=== PATIENT | female | born 1975 | race African-American/Black ===

== ENCOUNTER 2016-07-17 15:02 | Inpatient (IN) ==
[2016-07-17] MEDS ORDERED: SODIUM CHLORIDE 0.9% 500 ML IV STA (15:26)
[2016-07-17] MEDS ORDERED: METOPROLOL TARTRATE 5 MG/5 ML VIAL IV STA (15:26)
--- NOTE | 2016-07-17 15:31 | Emergency Department Note ---
Abbe Edwards Brittany, am scribing for, and in the presence of, Caleb Thompson MD 15:26. Donna Edwards James D, MD, personally performed the services described in this documentation, ascribed by Ana Mcadams in my presence, and it is both accurate and complete 529 . Arrival - Arrival Chief Complaint: Non-Specific Stated Complaint: DIZZY/BLOOD COUNT ED Nursing Triage Note: Pt sent from Dr office in [place] today and told her blood counts was low. Pt c/o dizziness, weakness, and feeling cold. Pt did not take her HTN meds today. Mode of Arrival: Ambulatory Limitations: No Limitations Source: Patient, RN Notes Reviewed - History of Present Illness HPI Narrative: Patient is a 41 y/o female presenting to the ED for further evaluation of low blood counts per office in [place], [place]. Patient has c/o dizziness, weakness, and chills. Patient reports that she did not take her HTN medications today. Went to get pre-op prep for cataract surgery per Dr. Davis irving. She reports she had went upstairs to get eyes measured and was instructed to present to the ED because of labs, labs were not disclosed by staff there. She had a Hgb 7 of and Hct of 23. Patient states she does have a history of heavy menstrual periods. She reports that when she does have a menstrual she goes through about 28 pads each time. She notes that she has talked to physician about this before. She states that heavy bleeding only occurs with period. Periods last about 3-7 days and has to stay in the bed the first day of her period each time. She denies having any chest pain or shortness of breath. She denies having bleeding between periods. Patient reports she felt near syncopal and was having palpitations yesterday. She reports having chills all the time. Had to have blood transfusion back in March of 2016. She reports that [employer] is Dr. Bernabe. Patient is on HCTZ, Lisinopril, Hydralazine, Coreg, and Lasix. PCP is Dr. Cartagena in [place]. She has a past medical history of HTN, Anxiety Disorders, Depression, IDDM, Dyslipidemia, Caesarean Section, and Tubal Ligation. Allergies/Adverse Reactions: Allergies Allergy/AdvReac Type Severity Reaction Status Date / Time No Known Allergies Allergy Verified 03/22/16 03:54 Home Medications: Home Medications Medication Instructions Recorded Confirmed Type Pravastatin [Pravachol] 40 mg PO BEDTIME 12/21/14 03/24/16 History Gabapentin 300 mg PO TID 03/05/16 03/24/16 History Potassium Chloride Cap/Tab [K Dur] 20 meq PO DAILY 03/05/16 03/24/16 History hydrALAZINE TAB [Apresoline Tab] 25 mg PO BID 03/05/16 03/24/16 History Carvedilol [Coreg] 25 mg PO BID #60 tablet 03/09/16 03/24/16 Rx Insulin Glargine [Lantus] 20 unit SUBCUT DAILY #10 ml 03/09/16 03/24/16 Rx Furosemide Tab [Lasix Tab] 160 mg PO BID DIURETIC #120 tablet 03/27/16 Rx HYDROcodone/ACETAMIN 5-325 [[place] 1 tablet PO Q4H PRN #20 tablet 03/27/16 Rx 5-325] Lisinopril [Prinivil] 10 mg PO BID #60 tablet 03/27/16 Rx metOLazone [Zaroxolyn] 5 mg PO DAILY #30 tablet 03/27/16 Rx Review of System - Review of System 12 point system: reviewed and no additional remarkable complaints except as stated - Review of System Constitutional: Present: as per HPI, chills, weakness, other (dizziness) Medical,Surgical,& Family Hx - Medical History Cardio: History of: Hypertension No history of: Aneurysm, Cardiac Dysrhythmia, Cerebrovascular Disease, Congenital Heart Disease, CHF, CAD, NM, Pacemaker, PVD, Valvular Heart Disease, Cardiovascular Problems Psychological: History of: Anxiety Disorders, Depression No history of: ADHD, Behavior Problems, Bipolar Disorder, Previous Suicide Attempt, Psychiatric/Substance Abuse Tx, Schizophrenia, Violent Behavior, Psychiatric Problems Neurology: No history of: Brain Aneurysm, Cerebral Hemorrhage, Cerebrovascular Accident , Cerebral Palsy, Dementia, Migraine, Multiple Sclerosis, Parkinson's Disease, Peripheral Neuropathy, Seizures, TIA, Vertigo, Neurologocal Cancer HEENT: No history of: Ear Problem, Eye Problem, Dental Problems, Glaucoma, Oral Cancer, HEENT Problems Endocrine: History of: Diabetes Mellitus (IDDM), Dyslipidemia No history of: Adrenal Disease, Diabetes Mellitus (NIDDM), Thyroid Disorder, Endocrine Cancer, Endocrine Problems Rheumatology: No history of;: Fibromyalgia, Gout, Myasthenia Gravis, Psoriasis, Rheumatoid Arthritis, Sjogrens, Systemic Lupus Erythematosus, Rheumatological Problems Respiratory: No history of: Asthma, Bronchitis, COPD, Intubation, Obstructive Sleep Apnea , Pulmonary Embolism, Pulmonary Hypertension, Pneumonia, Lung Cancer, Respiratory Problems Renal: No history of: Renal (Kidney) Cancer, Dialysis, Renal Failure, Renal Problems Genitourinary: No history of: Bladder Problem, Kidney Stones, Recurring Urinary Tract Infections, Genitourinary Cancer, Problems Gastrointestinal: No history of: Bowel Obstruction, Clostridium Difficile, Crohn's Disease, Diverticulitis/ Diverticulosis, Esophageal Varices, GERD, Gastrointestinal Bleed , Hemorrhoids, Hematochezia, Hepatitis, Liver Problems, Pancreatitis, Polyps, Ulcerative Colitis, Gastrointestinal Cancer, GI Problems Musculoskeletal: No history of: Amputation, Back/Neck Problems, Degenerative Disk Disease, Herniated Disk, Osteoporosis, Musculoskeletal Cancer, Musculoskeletal Problems Hematology: No history of: Anemia, Blood Transfusion Reaction, Bleeding Problems, Clotting Problems, Sickle Cell Disease, Hematologic Cancer, Blood Disorders Reproductive: No history of: Abnormal Pap Smear, Breast Cancer, Endometriosis, Ectopic , Ovarian Cysts, Complication, Sexually Transmitted Disorders , Reproductive Cancer, Reproductive Problems Other: No history of: Anesthesia Reactions, Anaphylaxis, Cancer, Eczema, HIV, Malignant Hyperthermia, MRSA, Vancomycin-Resistant Enterococci, Skin Problems, Miscellaneous Medical Problems - Surgical History Cardiac Surgeries: Patient Denies: Femoral-Popliteal Bypass Graft, Cardiac Catheterization, Cardiac Surgery, Carotid Endarterectomy, Internal Defibrillator, Vascular Access Devices Thoracic Surgeries: Patient denies;: Kidney (Renal Surgery), Lithotripsy, Nephrectomy, Organ Transplant, Lobectomy Neurologic Surgeries: Patient denies: Brain Aneurysm, Cerebral Hemorrhage, Neurologic Surgery HEENT Surgeries: Patient denies: Carotid Endarterectomy, Eye Surgery, Thyroid Surgery, Tonsilectomy & Adenoidectomy Abdominal Surgeries: Patient denies: Abdominal Surgery, Appendectomy, Cholecystectomy, Colonoscopy , Gastric Bypass Surgery, EGD, Hernia Repair, Splenectomy Reproductive Surgeries: Surgical HX of;: Section, Tubal Ligation Patient denies;: Breast Surgery, Cystoscopy, Dilation and Curettage, Genitourinary Surgery, Gynecologic Surgery, Hysterectomy Orthopedic Surgeries: Patient denies;: Implanted Devices, Orthopedic Surgery, Spinal Surgery, Total Hip Replacement, Total Knee Replacement - Family History Family History: Reports;: Family Diabetes (father mother sister), Family Heart Disease (father), Family Hypertension (father), Family Stroke (mother) Denies;: Family Anesthesia Reaction, Family Cancer (neice kidney ca), Family Psychiatric Problems - Social History Smoking Status: Never smoker Exam Vital Signs: Vital Signs Temperature 98.2 F 07/17/16 15:03 Pulse Rate 85 07/17/16 15:03 Respiratory Rate 18 07/17/16 15:03 Blood Pressure 205/123 07/17/16 15:03 O2 Sat by Pulse Oximetry 97 07/17/16 15:03 GENERAL: This is a well-nourished well-developed black female in no apparent distress. VITAL SIGNS: Reviewed HEENT: Head is atraumatic and normocephalic. Pupils are equal round react to light. Extraocular movements are intact. Pale conjunctiva bilaterally. Oropharynx is benign with moist mucous membranes. NECK: Neck is soft and supple without tenderness. There are no masses. There is no lymphadenopathy. LUNGS: Lungs are clear to auscultation. Chest rises symmetrically. There is no chest wall tenderness. CV: Heart is regular rate and rhythm without murmurs rubs or gallops. ABDOMEN: Abdomen is soft, nontender to palpation. There are no abdominal abnormal masses palpated. There is no organomegaly. Bowel sounds are present and active. SKIN: Skin is warm and dry. No rash. EXTREMITIES: Patient has full range of motion without tenderness. There is 1-2 + pitting pedal edema. NEUROLOGIC: Awake alert and oriented 4. Cranial nerves II through XII are grossly intact. Motor is 5 over 5 in all extremities bilaterally. Course - Consultations Consultation #1: Discussed with hospitalist. Patient will be admitted to their service. Time: 15:45 Disposition Clinical Impression: Menorrhagia, Anemia Case discussed with: patient Disposition: Still a Patient Condition: Stable
[2016-07-17 16:03] LABS: Basophils % 0.4 % (0.0-0.8); Eosinophils # 0.2 10*3/uL (0.0-0.87); Eosinophils % 3.1 % (0.00-10.9); Hemoglobin 8.4 GM/DL (12.0-16.0); Immature Granulocytes % 0.7 %; Immature Granulocytes Absolute 0.05 #; Lymphocytes # 2.1 10*3/uL (1.4-4.0); Lymphocytes % 30.9 % (21.3-54.2); Mean Corpuscular HGB Conc 33.6 GM/DL (32-36); Mean Corpuscular Hemoglobin 30 PG (27-34); Mean Corpuscular Volume 90.3 FL (87-102); Mean Platelet Volume 10.4 FL (9.6-12.0); Monocytes # 0.3 10*3/uL (0.11-0.8); Monocytes % 4.6 % (1.7-12.7); Neutrophils % 60.3 % (38.7-73.9); Platelet Count 272 T/CUMM (130-400); Red Blood Count 2.77 MC/CUMM (3.8-5.5); Red Cell Distribution Width 12.4 % (9.3-17.3); White Blood Count 6.7 T/CUMM (4-12)
--- NOTE | 2016-07-17 16:10 | XRay Report ---
XR chest 2V Indication: Anemia. Chest 2 views: Comparison 03/21/2016. Heart size and mediastinal contour are normal. Lungs are hypoinflated but generally clear, except for minimal bibasilar atelectasis. Pleural spaces are clear. Bones are intact. Impression: Mild pulmonary hypoinflation with atelectasis. PROCEDURE INTERPRETED AT [facility] DEPARTMENT OF RADIOLOGY Final Report Signed by: Haresh Whipple M.D.
[2016-07-17] MEDS ORDERED: METOPROLOL TARTRATE 5 MG/5 ML VIAL IV ONE (16:16)
[2016-07-17 16:20] LABS: % Iron Saturation 22.3 % (18-50); Calcium 6.7 MG/DL (8.5-10.1); Potassium 3.7 MMOL/L (3.5-5.1)
[2016-07-17] MEDS ORDERED: hydrALAZINE 20 MG/1 ML VIAL IV STA (17:54)
[2016-07-17] MEDS ORDERED: hydrALAZINE 20 MG/1 ML VIAL ONE (18:17)
[2016-07-17] MEDS ORDERED: DEXTROSE 50% 25 GM/50 ML VIAL IV PRN ×2 (19:15→19:34)
[2016-07-17] MEDS ORDERED: GLUCAGON 1 MG VIAL IM PRN ×2 (19:15→19:34)
--- NOTE | 2016-07-17 19:33 | Hospitalist History & Physical ---
<Billie Correa - Last Filed: 07/17/16 19:36> Assessment and Plan (1) Anemia Status: Acute Assessment and plan: Will get anemia profile. Monitor patient labs. Current Visit: Yes (2) Menorrhagia Status: Acute Assessment and plan: Consult OBGYN. Monitor labs Current Visit: Yes History of Present Illness Chief complaint: anemia History of present illness: Ms. Kerns is a 41 y/o female presenting to the ED for further evaluation of low blood counts per physicans office in [place], [place]. Pt went in to get pre op for cataract surgery and low blood counts were noted. Patient has c/o dizziness, weakness, and chills. Pt stated she was very dizzy yesterday. Patient reports that she did not take her HTN medications today and is hyptertensive. She has a past medical history of HTN, Anxiety Disorders, Depression, IDDM, Dyslipidemia, Caesarean Section, and Tubal Ligation. Patient states she does also have a history of heavy menstrual periods and that she has reported this to doctors in the past. She states that heavy bleeding only occurs with period. She has had to have 2 transfusions in the past (August and Mar 2016) She denies having any chest pain or shortness of breath. Had to have blood transfusion back in March of 2016. Pt. will be admitted for observation. OBGYN consulted to evaluate. Will continue to monitor patient for changes. Home Medications Medication Instructions Recorded Confirmed Type Pravastatin [Pravachol] 40 mg PO BEDTIME 12/21/14 07/17/16 History Gabapentin 300 mg PO TID 03/05/16 07/17/16 History hydrALAZINE TAB [Apresoline Tab] 25 mg PO BID 03/05/16 07/17/16 History Carvedilol [Coreg] 25 mg PO BID #60 tablet 03/09/16 07/17/16 Rx Furosemide Tab [Lasix Tab] 160 mg PO BID DIURETIC #120 tablet 03/27/16 07/17/16 Rx Insulin Glargine [Lantus] 30 unit SUBCUT QAM 07/17/16 07/17/16 History Lisinopril/Hydrochlorothiazide 1 each PO DAILY 07/17/16 07/17/16 History [Lisinopril-Hctz 20-25 mg Tab] Allergies Allergy/AdvReac Type Severity Reaction Status Date / Time No Known Allergies Allergy Verified 03/22/16 03:54 Medical,Surgical,& Family Hx - Medical History Cardio: History of: Hypertension No history of: Aneurysm, Cardiac Dysrhythmia, Cerebrovascular Disease, Congenital Heart Disease, CHF, CAD, [place], Pacemaker, PVD, Valvular Heart Disease, Cardiovascular Problems Psychological: History of: Anxiety Disorders, Depression No history of: ADHD, Behavior Problems, Bipolar Disorder, Previous Suicide Attempt, Psychiatric/Substance Abuse Tx, Schizophrenia, Violent Behavior, Psychiatric Problems Neurology: No history of: Brain Aneurysm, Cerebral Hemorrhage, Cerebrovascular Accident , Cerebral Palsy, Dementia, Migraine, Multiple Sclerosis, Parkinson's Disease, Peripheral Neuropathy, Seizures, TIA, Vertigo, Neurologocal Cancer HEENT: No history of: Ear Problem, Eye Problem, Dental Problems, Glaucoma, Oral Cancer, HEENT Problems Endocrine: History of: Diabetes Mellitus (IDDM), Dyslipidemia No history of: Adrenal Disease, Diabetes Mellitus (NIDDM), Thyroid Disorder, Endocrine Cancer, Endocrine Problems Rheumatology: No history of;: Fibromyalgia, Gout, Myasthenia Gravis, Psoriasis, Rheumatoid Arthritis, Sjogrens, Systemic Lupus Erythematosus, Rheumatological Problems Respiratory: No history of: Asthma, Bronchitis, COPD, Intubation, Obstructive Sleep Apnea , Pulmonary Embolism, Pulmonary Hypertension, Pneumonia, Lung Cancer, Respiratory Problems Renal: No history of: Renal (Kidney) Cancer, Dialysis, Renal Failure, Renal Problems Genitourinary: No history of: Bladder Problem, Kidney Stones, Recurring Urinary Tract Infections, Genitourinary Cancer, Problems Gastrointestinal: No history of: Bowel Obstruction, Clostridium Difficile, Crohn's Disease, Diverticulitis/ Diverticulosis, Esophageal Varices, GERD, Gastrointestinal Bleed , Hemorrhoids, Hematochezia, Hepatitis, Liver Problems, Pancreatitis, Polyps, Ulcerative Colitis, Gastrointestinal Cancer, GI Problems Musculoskeletal: No history of: Amputation, Back/Neck Problems, Degenerative Disk Disease, Herniated Disk, Osteoporosis, Musculoskeletal Cancer, Musculoskeletal Problems Hematology: No history of: Anemia, Blood Transfusion Reaction, Bleeding Problems, Clotting Problems, Sickle Cell Disease, Hematologic Cancer, Blood Disorders Reproductive: No history of: Abnormal Pap Smear, Breast Cancer, Endometriosis, Ectopic , Ovarian Cysts, Complication, Sexually Transmitted Disorders , Reproductive Cancer, Reproductive Problems Other: No history of: Anesthesia Reactions, Anaphylaxis, Cancer, Eczema, HIV, Malignant Hyperthermia, MRSA, Vancomycin-Resistant Enterococci, Skin Problems, Miscellaneous Medical Problems - Surgical History Cardiac Surgeries: Patient Denies: Femoral-Popliteal Bypass Graft, Cardiac Catheterization, Cardiac Surgery, Carotid Endarterectomy, Internal Defibrillator, Vascular Access Devices Thoracic Surgeries: Patient denies;: Kidney (Renal Surgery), Lithotripsy, Nephrectomy, Organ Transplant, Lobectomy Neurologic Surgeries: Patient denies: Brain Aneurysm, Cerebral Hemorrhage, Neurologic Surgery HEENT Surgeries: Patient denies: Carotid Endarterectomy, Eye Surgery, Thyroid Surgery, Tonsilectomy & Adenoidectomy Abdominal Surgeries: Patient denies: Abdominal Surgery, Appendectomy, Cholecystectomy, Colonoscopy , Gastric Bypass Surgery, EGD, Hernia Repair, Splenectomy Reproductive Surgeries: Surgical HX of;: Section, Tubal Ligation Patient denies;: Breast Surgery, Cystoscopy, Dilation and Curettage, Genitourinary Surgery, Gynecologic Surgery, Hysterectomy Orthopedic Surgeries: Patient denies;: Implanted Devices, Orthopedic Surgery, Spinal Surgery, Total Hip Replacement, Total Knee Replacement - Family History Family History: Reports;: Family Diabetes (father mother sister), Family Heart Disease (father), Family Hypertension (father), Family Stroke (mother) Denies;: Family Anesthesia Reaction, Family Cancer (neice kidney ca), Family Psychiatric Problems - Social History Smoking Status: Never smoker - Constitutional Constitutional: Present: fatigue - Cardiovascular Cardiovascular: Present: edema - Respiratory Respiratory: Absent: cough, dyspnea - Genitourinary Genitourinary: Present: other (heavy menstrual cycles) Exam - Constitutional Vitals: Period Temp Pulse Resp BP Sys/Encarnacion Pulse Ox Last 24 Hr 75-79 16-19 163-218/86-105 100-100 General appearance: no acute distress, over weight - Head Head exam: Present: normal inspection, normocephalic - Eye Eye exam: Present: EOMI Pupils: Present: JOLYNN - Respiratory Respiratory exam: Present: clear to auscultation bilaterally - GI/Abdominal GI/Abdominal exam: Present: normal bowel sounds, soft - Extremities Exam Extremities exam: Present: normal inspection, normal capillary refill, full ROM , edema (bilateral lower extremities) - Neurological Exam Neurological exam: Present: oriented X3 - Psychiatric Psychiatric exam: Present: normal affect, normal mood - Skin Skin exam: Present: normal color, warm, dry Results - Labs CBC & BMP: 07/17/16 15:53 07/17/16 15:53 Lab Results: I have reviewed the past 24 hour labs <Dover,Haresh - Last Filed: 07/17/16 20:15> History of Present Illness History of present illness: Ms. Kerns is a 41 year old female Exam - Constitutional Vitals: Period Temp Pulse Resp BP Sys/Encarnacion Pulse Ox Last 24 Hr 75-79 16-19 163-218/86-105 100-100 Results - Labs CBC & BMP: 07/17/16 15:53 07/17/16 15:53
[2016-07-17] MEDS ORDERED: ACETAMINOPHEN 325 MG TABLET PO PRN (19:34)
[2016-07-17] MEDS ORDERED: BISACODYL 5 MG TABLET PO PRN (19:34)
[2016-07-17] MEDS ORDERED: ONDANSETRON 4 MG/2 ML VIAL IV PRN (19:34)
[2016-07-17] MEDS ORDERED: DOCUSATE SODIUM 100 MG CAPSULE PO PRN (19:34)
[2016-07-17 20:22] LABS: Basophils % 0.3 % (0.0-0.8); Eosinophils # 0.3 10*3/uL (0.0-0.87); Eosinophils % 3.6 % (0.00-10.9); Hematocrit 24.8 VOL% (35.7-47.0); Immature Granulocytes % 0.7 %; Immature Granulocytes Absolute 0.05 #; Lymphocytes # 2.7 10*3/uL (1.4-4.0); Lymphocytes % 38.1 % (21.3-54.2); Mean Corpuscular HGB Conc 32.3 GM/DL (32-36); Mean Corpuscular Hemoglobin 30 PG (27-34); Mean Corpuscular Volume 91.5 FL (87-102); Mean Platelet Volume 10.4 FL (9.6-12.0); Monocytes # 0.3 10*3/uL (0.11-0.8); Monocytes % 4.3 % (1.7-12.7); Neutrophils # 3.7 10*3/uL (1.4-7.4); Platelet Count 269 T/CUMM (130-400); Red Blood Count 2.71 MC/CUMM (3.8-5.5); Red Cell Distribution Width 12.4 % (9.3-17.3)
[2016-07-17] MEDS: CARVEDILOL 25 MG TABLET PO SCH (20:50)
[2016-07-17] MEDS: PRAVASTATIN 40 MG TABLET PO SCH (20:50)
[2016-07-17] MEDS: hydrALAZINE 25 MG TABLET PO SCH (20:50)
[2016-07-17] MEDS: INSULIN LISPRO 100 UNIT/ML SUBCUT SCH (20:51)
[2016-07-17 20:56] LABS: Folate 6.5 NG/ML (5.4-24.0); Vitamin B12 622 PG/ML (211-911)
[2016-07-17] MEDS ORDERED: INFLUENZA VIRUS VACCINE 0.5 ML SYRINGE IM ONE (21:08)
[2016-07-17 22:18] LABS: Sedimentation Rate-Westergren 134 MM/HR (0-20)
[2016-07-18] MEDS: ACETAMINOPHEN 325 MG TABLET PO PRN (00:16)
[2016-07-18 02:39] LABS: Basophils % 0.3 % (0.0-0.8); Eosinophils # 0.2 10*3/uL (0.0-0.87); Eosinophils % 3.1 % (0.00-10.9); Hematocrit 21.1 VOL% (35.7-47.0); Immature Granulocytes % 0.9 %; Immature Granulocytes Absolute 0.06 #; Lymphocytes # 2.2 10*3/uL (1.4-4.0); Lymphocytes % 34.1 % (21.3-54.2); Mean Corpuscular HGB Conc 33.2 GM/DL (32-36); Mean Corpuscular Hemoglobin 30 PG (27-34); Mean Corpuscular Volume 90.2 FL (87-102); Monocytes # 0.3 10*3/uL (0.11-0.8); Monocytes % 4.6 % (1.7-12.7); Neutrophils # 3.7 10*3/uL (1.4-7.4); Platelet Count 220 T/CUMM (130-400); Red Blood Count 2.34 MC/CUMM (3.8-5.5); Red Cell Distribution Width 12.4 % (9.3-17.3); White Blood Count 6.5 T/CUMM (4-12)
[2016-07-18 03:10] LABS: Calcium 6.5 MG/DL (8.5-10.1); Osmolality,Calculated 307.4 MOS/KG (273-304); Potassium 3.3 MMOL/L (3.5-5.1); Risk Ratio 4.74; Thyroid Stimulating Hormone 1.85 uIU/ml (0.358-3.74)
[2016-07-18 03:14] LABS: Apearance,Urine Slightly Hazy (Clear); Bacteria,Urine Occasional /HPF (Few); Bilirubin,Urine Negative (Negative); Blood, Urine Negative (Negative); Glucose,Urine (UA) >=500 mg/dL (Negative); Hyaline Casts,Urine 4 /LPF (0-3); Ketones,Urine Negative (Negative); Mucus,Urine Occasional /LPF (Occasional); Nitrite,Urine Negative (Negative); Protein,Urine >=500 MG/DL; RBC,Urine 2 /HPF (0-4); Squamous Epithelial Cell,Urine Occasional /HPF (0-10); Urine Color Yellow (Yellow); Urine Specific Gravity 1.012 (1.001-1.035); Urine Urobilinogen < 2.0 EU/DL (0.2-1.0); WBC,Urine 12 /HPF (0-6)
--- NOTE | 2016-07-18 07:58 | Physician Query Form ---
CLICK EDIT DOCUMENT TO SELECT QUERY ANSWER --> OK --> SIGN Arline Vallejo RN, CCDS Certified Clinical Equip Tech W) [phone] (f) [phone] [email or web address] PROVIDERS: Make your selection(s) from the choices in EACH section by typing an "x" and enter comments in the comment section. Please use your independent medical judgment in providing your response. This request does not imply that any particular answer is desired or expected. CLINICAL INDICATORS: (Providers should not edit this section) The medical record indicates that the patient was admitted with Menorrhagia, Creatinine of 3.70# on the 15th that has dropped to 3.50# on the 16th and GFR of 18 on the 15th that has increased to 20 on the 16th. Clarify which of the following most accurately represents the patient's renal status: ( ) Acute kidney injury (non-traumatic) ( ) Acute renal failure ( ) Acute renal failure with underlying Chronic Kidney Disease (CKD) - please provide stage below ( ) Acute renal failure with pathological renal lesion ( ) Acute renal failure with necrosis ( ) tubular ( ) medullary ( ) cortical (x ) CKD - please provide stage below ( ) End Stage Renal Disease ( ) Acute interstitial nephritis ( ) Hepatorenal syndrome ( ) Other, please specify: ( ) Clinically unable to determine Chronic Kidney Disease Stages Source: National Kidney Disease Foundation ( ) Stage I (eGFR > or = 90) ( ) Stage II (eGFR 60 - 89) (x ) Stage III (eGFR 30 - 59) ( ) Stage IV (eGFR 15 - 29) ( ) Stage V (eGFR < 15 or dialysis) COMMENTS: Use of terms such as suspected, likely, or probable (associated with a specific diagnosis that is being evaluated, monitored, or treated as if it exists) are acceptable and can be restated in the discharge summary if not ruled out. MTDD
--- NOTE | 2016-07-18 07:59 | Physician Query Form ---
CLICK EDIT DOCUMENT TO SELECT QUERY ANSWER --> OK --> SIGN Arline Vallejo RN, CCDS Certified Clinical Hogshead Press Operator W) [phone] (f) [phone] [email or web address] PROVIDERS: Make your selection(s) from the choices in EACH section by typing an "x" and enter comments in the comment section. Please use your independent medical judgment in providing your response. This request does not imply that any particular answer is desired or expected. CLINICAL INDICATORS: (Providers should not edit this section) The medical record indicates that the patient was admitted with Menorrhagia, PER Blood Pressure in the ER 205/123 and the patient was given Apresoline IV in the ER Note: Hypertensive crises can present as hypertensive urgency or hypertensive emergency. Clarify which, if any of the following, is a more accurate diagnosis reflecting the type and acuity of the documented hypertension: TYPE: (x ) Hypertensive Urgency ( ) Hypertensive Emergency ( ) Uncontrolled chronic hypertension at baseline ( ) Other, please specify: ( ) Clinically unable to determine Criteria Source - Up to Date (This topic last updated: Jul 05, 2015) HYPERTENSIVE URGENCY: Severe hypertension (usually a diastolic blood pressure above 120 mmHg) in asymptomatic patients is referred to as hypertensive urgency. There is no proven benefit from rapid reduction in blood pressure in asymptomatic patients who have no evidence of acute end-organ damage and are at little short-term risk. HYPERTENSIVE EMERGENCY: Severe hypertension (usually a diastolic blood pressure above 120 mmHg) with evidence of acute end-organ damage is defined as a hypertensive emergency. A hypertensive emergency can be life threatening and requires immediate treatment, usually with parenteral medications in a monitored setting. COMMENTS: Use of terms such as suspected, likely, or probable (associated with a specific diagnosis that is being evaluated, monitored, or treated as if it exists) are acceptable and can be restated in the discharge summary if not ruled out. MTDD
--- NOTE | 2016-07-18 08:52 | OB/GYN Consult Note ---
History of Present Illness Chief complaint: Anemia secondary to blood loss History of present illness: Ms. Kerns is a 41 year old female Who is scheduled for cataract surgery in [place] next but on her preop was found to be anemic she was consequently admitted here at [facility] for anemia. Her hemoglobin currently is 7. She states that she has not had a period this month but when she does have periods they are usually very heavy. Recommend giving her 3 units packed red blood cells which I have ordered and will give her a shot of Depo-Provera to hold off her next cycle. Once she is completed her surgery next week in [place] for her cataract will follow up the following week in my office for evaluation and definitive treatment of her menorrhagia Home Medications Medication Instructions Recorded Confirmed Type Pravastatin [Pravachol] 40 mg PO BEDTIME 12/21/14 07/17/16 History Gabapentin 300 mg PO TID 03/05/16 07/17/16 History hydrALAZINE TAB [Apresoline Tab] 25 mg PO BID 03/05/16 07/17/16 History Carvedilol [Coreg] 25 mg PO BID #60 tablet 03/09/16 07/17/16 Rx Furosemide Tab [Lasix Tab] 160 mg PO BID DIURETIC #120 tablet 03/27/16 07/17/16 Rx Insulin Glargine [Lantus] 30 unit SUBCUT QAM 07/17/16 07/17/16 History Lisinopril/Hydrochlorothiazide 1 each PO DAILY 07/17/16 07/17/16 History [Lisinopril-Hctz 20-25 mg Tab] Allergies Allergy/AdvReac Type Severity Reaction Status Date / Time No Known Allergies Allergy Verified 03/22/16 03:54 Medical,Surgical,& Family Hx - Medical History Cardio: History of: Hypertension No history of: Aneurysm, Cardiac Dysrhythmia, Cerebrovascular Disease, Congenital Heart Disease, CHF, CAD, [place], Pacemaker, PVD, Valvular Heart Disease, Cardiovascular Problems Psychological: History of: Anxiety Disorders, Depression No history of: ADHD, Behavior Problems, Bipolar Disorder, Previous Suicide Attempt, Psychiatric/Substance Abuse Tx, Schizophrenia, Violent Behavior, Psychiatric Problems Neurology: No history of: Brain Aneurysm, Cerebral Hemorrhage, Cerebrovascular Accident , Cerebral Palsy, Dementia, Migraine, Multiple Sclerosis, Parkinson's Disease, Peripheral Neuropathy, Seizures, TIA, Vertigo, Neurologocal Cancer HEENT: No history of: Ear Problem, Eye Problem, Dental Problems, Glaucoma, Oral Cancer, HEENT Problems Endocrine: History of: Diabetes Mellitus (IDDM), Dyslipidemia No history of: Adrenal Disease, Diabetes Mellitus (NIDDM), Thyroid Disorder, Endocrine Cancer, Endocrine Problems Rheumatology: No history of;: Fibromyalgia, Gout, Myasthenia Gravis, Psoriasis, Rheumatoid Arthritis, Sjogrens, Systemic Lupus Erythematosus, Rheumatological Problems Respiratory: No history of: Asthma, Bronchitis, COPD, Intubation, Obstructive Sleep Apnea , Pulmonary Embolism, Pulmonary Hypertension, Pneumonia, Lung Cancer, Respiratory Problems Renal: No history of: Renal (Kidney) Cancer, Dialysis, Renal Failure, Renal Problems Genitourinary: No history of: Bladder Problem, Kidney Stones, Recurring Urinary Tract Infections, Genitourinary Cancer, Problems Gastrointestinal: No history of: Bowel Obstruction, Clostridium Difficile, Crohn's Disease, Diverticulitis/ Diverticulosis, Esophageal Varices, GERD, Gastrointestinal Bleed , Hemorrhoids, Hematochezia, Hepatitis, Liver Problems, Pancreatitis, Polyps, Ulcerative Colitis, Gastrointestinal Cancer, GI Problems Musculoskeletal: No history of: Amputation, Back/Neck Problems, Degenerative Disk Disease, Herniated Disk, Osteoporosis, Musculoskeletal Cancer, Musculoskeletal Problems Hematology: No history of: Anemia, Blood Transfusion Reaction, Bleeding Problems, Clotting Problems, Sickle Cell Disease, Hematologic Cancer, Blood Disorders Reproductive: No history of: Abnormal Pap Smear, Breast Cancer, Endometriosis, Ectopic , Ovarian Cysts, Complication, Sexually Transmitted Disorders , Reproductive Cancer, Reproductive Problems Other: No history of: Anesthesia Reactions, Anaphylaxis, Cancer, Eczema, HIV, Malignant Hyperthermia, MRSA, Vancomycin-Resistant Enterococci, Skin Problems, Miscellaneous Medical Problems - Surgical History Cardiac Surgeries: Patient Denies: Femoral-Popliteal Bypass Graft, Cardiac Catheterization, Cardiac Surgery, Carotid Endarterectomy, Internal Defibrillator, Vascular Access Devices Thoracic Surgeries: Patient denies;: Kidney (Renal Surgery), Lithotripsy, Nephrectomy, Organ Transplant, Lobectomy Neurologic Surgeries: Patient denies: Brain Aneurysm, Cerebral Hemorrhage, Neurologic Surgery HEENT Surgeries: Patient denies: Carotid Endarterectomy, Eye Surgery, Thyroid Surgery, Tonsilectomy & Adenoidectomy Abdominal Surgeries: Patient denies: Abdominal Surgery, Appendectomy, Cholecystectomy, Colonoscopy , Gastric Bypass Surgery, EGD, Hernia Repair, Splenectomy Reproductive Surgeries: Surgical HX of;: Section, Tubal Ligation Patient denies;: Breast Surgery, Cystoscopy, Dilation and Curettage, Genitourinary Surgery, Gynecologic Surgery, Hysterectomy Orthopedic Surgeries: Patient denies;: Implanted Devices, Orthopedic Surgery, Spinal Surgery, Total Hip Replacement, Total Knee Replacement - Family History Family History: Reports;: Family Diabetes (father mother sister), Family Heart Disease (father), Family Hypertension (father), Family Stroke (mother), Additional Family History (sister,nephew dialysis,neice) Denies;: Family Anesthesia Reaction, Family Cancer (neice kidney ca), Family Hematology, Family Psychiatric Problems - Social History Smoking Status: Never smoker Frequency of Alcohol Use: None Type of Drug Use: None 12 point system: reviewed and no additional remarkable complaints except as stated - Genitourinary Genitourinary: Present: abnormal vaginal bleeding Exam [employer] - Constitutional Vitals: Vital Signs Temp Pulse Pulse Resp BP Pulse Ox Pulse Ox 07/18/16 07:57 98.5 F 76 17 179/86 98 07/18/16 04:00 99.2 F 80 18 155/76 99 07/18/16 01:16 99 F 07/18/16 00:16 101.1 F H 07/18/16 00:00 101.1 F H 88 18 136/67 97 07/17/16 20:00 83 18 07/17/16 19:35 99.4 F 83 18 163/93 100 07/17/16 19:06 75 16 163/86 100 07/17/16 18:30 79 19 190/101 100 07/17/16 18:00 76 19 218/105 100 General appearance: over weight - Head Head exam: Present: normal inspection, normocephalic, atraumatic - Respiratory Respiratory exam: Present: clear to auscultation bilaterally - Breast Breasts: as per HPI Menstruation: as per HPI - Cardiovascular Cardiovascular exam: Present: regular rate and rhythm - GI/Abdominal GI/Abdominal exam: Present: normal bowel sounds - Extremities Exam Extremities exam: Present: normal inspection - Neurological Exam Neurological exam: Present: alert, oriented X3 - Psychiatric Psychiatric exam: Present: normal affect, normal mood - Skin Skin exam: Present: normal color Results - Labs CBC & BMP: 07/18/16 02:11 07/18/16 02:11
[2016-07-18] MEDS ORDERED: SODIUM CHLORIDE 0.9% 250 ML IV PRN (08:53)
[2016-07-18] MEDS: INSULIN LISPRO 100 UNIT/ML SUBCUT SCH ×4 (08:54→22:02)
[2016-07-18] MEDS: FUROSEMIDE 80 MG TABLET PO SCH ×2 (08:55→17:20)
[2016-07-18] MEDS: PANTOPRAZOLE 40 MG TABLET PO SCH (08:55)
[2016-07-18] MEDS: hydrALAZINE 25 MG TABLET PO SCH ×2 (08:55→22:00)
[2016-07-18] MEDS: LISINOPRIL/HCTZ 20-25 MG TABLET PO SCH (08:55)
[2016-07-18] MEDS: CARVEDILOL 25 MG TABLET PO SCH ×2 (08:55→22:01)
[2016-07-18 09:35] LABS: Basophils % 0.1 % (0.0-0.8); Eosinophils # 0.2 10*3/uL (0.0-0.87); Eosinophils % 3.1 % (0.00-10.9); Hematocrit 21.9 VOL% (35.7-47.0); Hemoglobin 7.1 GM/DL (12.0-16.0); Immature Granulocytes % 0.7 %; Immature Granulocytes Absolute 0.05 #; Lymphocytes # 2.3 10*3/uL (1.4-4.0); Lymphocytes % 33.7 % (21.3-54.2); Mean Corpuscular HGB Conc 32.4 GM/DL (32-36); Mean Corpuscular Hemoglobin 30 PG (27-34); Mean Corpuscular Volume 91.6 FL (87-102); Mean Platelet Volume 10.3 FL (9.6-12.0); Monocytes # 0.3 10*3/uL (0.11-0.8); Monocytes % 3.9 % (1.7-12.7); Neutrophils # 3.9 10*3/uL (1.4-7.4); Neutrophils % 58.5 % (38.7-73.9); Platelet Count 250 T/CUMM (130-400); Red Blood Count 2.39 MC/CUMM (3.8-5.5); Red Cell Distribution Width 12.5 % (9.3-17.3); White Blood Count 6.7 T/CUMM (4-12)
[2016-07-18] MEDS: GABAPENTIN 300 MG CAPSULE PO SCH ×2 (13:55→22:00)
--- NOTE | 2016-07-18 13:58 | Hospitalist Progress Note ---
Assessment and Plan - Time spent with patient Time spent with patient: Greater than 30 minutes (1) Anemia Status: Acute Assessment and plan: Continue blood products. Current Visit: Yes (2) Menorrhagia Status: Acute Assessment and plan: Evaluated by OBGYN. Current Visit: Yes Hospitalist: Subjective Interval history: No complaints currently. Exam - Constitutional Vitals: Period Temp Pulse Resp BP Sys/Encarnacion Pulse Ox Last 24 Hr 97.7 F-101.1 F 68-88 16-20 136-218/67-105 97-100 General appearance: no acute distress - Head Head exam: Present: normocephalic, atraumatic - Eye Eye exam: Present: EOMI Pupils: Present: JOLYNN - ENT ENT exam: Present: normal exam - Neck Neck exam: Present: normal inspection - Respiratory Respiratory exam: Present: clear to auscultation bilaterally. Absent: rhonchi, wheezes - Cardiovascular Cardiovascular exam: Present: regular rate and rhythm. Absent: gallop, rubs, systolic murmur - GI/Abdominal GI/Abdominal exam: Present: normal bowel sounds, soft. Absent: distended, firm , guarding, tenderness, rebound - Extremities Exam Extremities exam: Present: normal inspection. Absent: calf tenderness, edema Results - Labs CBC & BMP: 07/18/16 09:20 07/18/16 02:11 Lab Results: I have reviewed the past 24 hour labs Specialty Discharge - Follow Up or Referrals Follow up with: Aaron Davila MD [Physician] - 2 Weeks
[2016-07-18] MEDS ORDERED: hydrALAZINE 20 MG/1 ML VIAL IV PRN (14:53)
[2016-07-18] MEDS: PRAVASTATIN 40 MG TABLET PO SCH (21:59)
[2016-07-18 22:28] LABS: Hematocrit 34.2 VOL% (35.7-47.0)
[2016-07-18 22:29] LABS: Hemoglobin 11.4 GM/DL (12.0-16.0)
[2016-07-19] MEDS: INSULIN LISPRO 100 UNIT/ML SUBCUT SCH ×4 (07:53→21:05)
[2016-07-19] MEDS: FUROSEMIDE 80 MG TABLET PO SCH ×2 (07:56→17:04)
[2016-07-19] MEDS: CARVEDILOL 25 MG TABLET PO SCH ×2 (08:00→21:06)
[2016-07-19] MEDS: GABAPENTIN 300 MG CAPSULE PO SCH ×3 (08:00→21:06)
[2016-07-19] MEDS: PANTOPRAZOLE 40 MG TABLET PO SCH (08:00)
[2016-07-19] MEDS: hydrALAZINE 25 MG TABLET PO SCH ×2 (08:00→21:06)
[2016-07-19] MEDS: LISINOPRIL/HCTZ 20-25 MG TABLET PO SCH (08:00)
--- NOTE | 2016-07-19 16:09 | Hospitalist Progress Note ---
Assessment and Plan - Time spent with patient Time spent with patient: Greater than 30 minutes (1) Anemia Status: Acute Assessment and plan: Continue blood products. Current Visit: Yes (2) Menorrhagia Status: Acute Assessment and plan: Evaluated by OBGYN. Current Visit: Yes (3) UTI (urinary tract infection) Status: Acute Assessment and plan: rocephin. Current Visit: No Qualifiers: Urinary tract infection type: acute cystitis Hematuria presence: without hematuria Qualified Code(s): N30.00 - Acute cystitis without hematuria Hospitalist: Subjective Interval history: No complaints, no overnight events. Exam - Constitutional Vitals: Period Temp Pulse Resp BP Sys/Encarnacion Pulse Ox Last 24 Hr 97.8 F-99.2 F 72-96 16-20 124-203/57-95 95-100 General appearance: no acute distress - Head Head exam: Present: normocephalic, atraumatic - Eye Eye exam: Present: EOMI Pupils: Present: JOLYNN - ENT ENT exam: Present: normal exam - Neck Neck exam: Present: normal inspection - Respiratory Respiratory exam: Present: clear to auscultation bilaterally. Absent: rhonchi, wheezes - Cardiovascular Cardiovascular exam: Present: regular rate and rhythm. Absent: gallop, rubs, systolic murmur - GI/Abdominal GI/Abdominal exam: Present: normal bowel sounds, soft. Absent: distended, firm , guarding, tenderness, rebound - Extremities Exam Extremities exam: Present: normal inspection. Absent: calf tenderness, edema Results - Labs CBC & BMP: 07/18/16 22:07 07/18/16 02:11 Lab Results: I have reviewed the past 24 hour labs Specialty Discharge - Follow Up or Referrals Follow up with: Aaron Davila MD [Physician] - 08/01/16 10:00 am
[2016-07-19 16:46] LABS: Basophils % 0.4 % (0.0-0.8); Eosinophils # 0.2 10*3/uL (0.0-0.87); Eosinophils % 2.7 % (0.00-10.9); Hematocrit 34.5 VOL% (35.7-47.0); Hemoglobin 11.3 GM/DL (12.0-16.0); Immature Granulocytes % 0.5 %; Immature Granulocytes Absolute 0.04 #; Lymphocytes # 2.1 10*3/uL (1.4-4.0); Lymphocytes % 25.3 % (21.3-54.2); Mean Corpuscular HGB Conc 32.8 GM/DL (32-36); Mean Corpuscular Hemoglobin 30 PG (27-34); Mean Corpuscular Volume 91.5 FL (87-102); Mean Platelet Volume 10.1 FL (9.6-12.0); Monocytes # 0.3 10*3/uL (0.11-0.8); Monocytes % 4.2 % (1.7-12.7); Neutrophils # 5.5 10*3/uL (1.4-7.4); Neutrophils % 66.9 % (38.7-73.9); Platelet Count 260 T/CUMM (130-400); Red Blood Count 3.77 MC/CUMM (3.8-5.5); Red Cell Distribution Width 12.9 % (9.3-17.3); White Blood Count 8.2 T/CUMM (4-12)
[2016-07-19 17:03] LABS: Calcium 6.9 MG/DL (8.5-10.1); Potassium 3.8 MMOL/L (3.5-5.1)
[2016-07-19] MEDS: cefTRIAXone 1,000 MG in SODIUM CHLORIDE 0.9% 100 ML IV SCH (17:05)
[2016-07-19] MEDS: PRAVASTATIN 40 MG TABLET PO SCH (21:06)
--- NOTE | 2016-07-20 09:16 | Hospitalist Progress Note ---
Assessment and Plan - Time spent with patient Time spent with patient: Greater than 30 minutes (1) Anemia Status: Acute Assessment and plan: Continue blood products. Current Visit: Yes (2) Menorrhagia Status: Acute Assessment and plan: Evaluated by OBGYN. Current Visit: Yes (3) UTI (urinary tract infection) Status: Acute Assessment and plan: rocephin. Current Visit: No Qualifiers: Urinary tract infection type: acute cystitis Hematuria presence: without hematuria Qualified Code(s): N30.00 - Acute cystitis without hematuria (4) Acute kidney injury superimposed on CKD Status: Acute Assessment and plan: Patient was on Lasix 160 BID and lisinopril/hydrochlorothiazide. Presumably for diabetic nephropathy with anasarca. We will hold nephrotoxic medications and consult nephrology. Current Visit: Yes (5) DM2 (diabetes mellitus, type 2) Status: Acute Assessment and plan: Restart her medications. Patient has diabetic nephropathy. Current Visit: No Qualifiers: Diabetes mellitus complication status: with kidney complications Diabetes mellitus complication detail: with nephropathy Hospitalist: Subjective Interval history: No complaints. No overnight events. Exam - Constitutional Vitals: Period Temp Pulse Resp BP Sys/Encarnacion Pulse Ox Last 24 Hr 98.4 F-99.4 F 71-85 18-20 118-160/62-80 93-97 General appearance: no acute distress - Head Head exam: Present: normocephalic, atraumatic - Eye Eye exam: Present: EOMI Pupils: Present: JOLYNN - ENT ENT exam: Present: normal exam - Neck Neck exam: Present: normal inspection - Respiratory Respiratory exam: Present: clear to auscultation bilaterally. Absent: rhonchi, wheezes - Cardiovascular Cardiovascular exam: Present: regular rate and rhythm. Absent: gallop, rubs, systolic murmur - GI/Abdominal GI/Abdominal exam: Present: normal bowel sounds, soft. Absent: distended, firm , guarding, tenderness, rebound - Extremities Exam Extremities exam: Present: normal inspection. Absent: calf tenderness, edema Results - Labs CBC & BMP: 07/19/16 16:30 07/19/16 16:30 Lab Results: I have reviewed the past 24 hour labs Specialty Discharge - Follow Up or Referrals Follow up with: Aaron Davila MD [Physician] - 08/01/16 10:00 am
[2016-07-20] MEDS: INSULIN LISPRO 100 UNIT/ML SUBCUT SCH ×4 (09:21→20:39)
[2016-07-20] MEDS: hydrALAZINE 25 MG TABLET PO SCH ×2 (09:21→20:12)
[2016-07-20] MEDS: GABAPENTIN 300 MG CAPSULE PO SCH ×3 (09:22→20:12)
[2016-07-20] MEDS: PANTOPRAZOLE 40 MG TABLET PO SCH (09:22)
[2016-07-20] MEDS: CARVEDILOL 25 MG TABLET PO SCH ×2 (09:22→20:11)
[2016-07-20] MEDS: FUROSEMIDE 80 MG TABLET PO SCH (11:02)
[2016-07-20] MEDS: INSULIN GLARGINE 100 UNIT/ML SUBCUT SCH (11:24)
[2016-07-20] MEDS: ACETAMINOPHEN 325 MG TABLET PO PRN (16:24)
--- NOTE | 2016-07-20 17:13 | Nephrology Consult Note ---
History of Present Illness Chief complaint: Increased BUN and creatinine History of present illness: Ms. Kerns is a 41 year old female with chronic kidney disease who was admitted for anemia. The patient was apparently to have some eye surgery done and in her preop labs she was found to have a significant degree of anemia. Patient was subsequently admitted to the hospital her hematocrit dropped to as low as 21%. She has subsequently been transfused. The patient relates that she has a heavy menstruation otherwise she denies any bleeding from her mouth nose or bowels. The patient has known chronic kidney disease. Her creatinine in the past year has been fluctuating between 2.5-3 mg/dL. On admission here creatinine was around 3.5 mg/dL it has increased to 3.9 mg/dL as of yesterday. The patient apparently was on high dose of diuretics in the form of Lasix 160 mg twice a day and on a GRACE inhibitor as well. This is currently being held. The patient apparently has a history of albuminuria. She has a 15 year history of diabetes and about a 15 year history of hypertension. She states that she has chronic swelling in her lower extremities. ROS: Head - d positive headaches ENT - denies sore throat Lymphatics - denies lymphadenopathy Hematology -positive bleeding problems with menstruation Heart - denies chest pain Lungs - denies shortness of breath Abdomen - denies abdominal pain Musculoskeletal - denies arthritis Skin - denies rash Neurology - denies stroke General - denies fever, she states she has been feeling cold PE: General: in no acute distress Eyes: Pupils are round and reactive, conjunctivae are clear ENT: Nose is clear, O/P is benign Neck: Supple, no thyromegaly Lymphatics: No cervical, supraclavicular or axillary adenopathy Heart: Regular rate and rhythm, 1-2+ pretibial edema Lungs: Clear to auscultation anteriorly, chest expansion symmetric Abdomen: Soft, normoactive bowel sounds, no hepatomegaly Musculoskeletal: No joint erythema or effusions or joint asymmetry Skin: Normal turgor, normal hydration, no rash Neuro/Psych: Alert and cooperative with fair insight Home Medications Medication Instructions Recorded Confirmed Type Pravastatin [Pravachol] 40 mg PO BEDTIME 12/21/14 07/17/16 History Gabapentin 300 mg PO TID 03/05/16 07/17/16 History hydrALAZINE TAB [Apresoline Tab] 25 mg PO BID 03/05/16 07/17/16 History Carvedilol [Coreg] 25 mg PO BID #60 tablet 03/09/16 07/17/16 Rx Furosemide Tab [Lasix Tab] 160 mg PO BID DIURETIC #120 tablet 03/27/16 07/17/16 Rx Insulin Glargine [Lantus] 30 unit SUBCUT QAM 07/17/16 07/17/16 History Lisinopril/Hydrochlorothiazide 1 each PO DAILY 07/17/16 07/17/16 History [Lisinopril-Hctz 20-25 mg Tab] Allergies Allergy/AdvReac Type Severity Reaction Status Date / Time No Known Allergies Allergy Verified 03/22/16 03:54 Medical,Surgical,& Family Hx - Medical History Cardio: History of: Hypertension No history of: Aneurysm, Cardiac Dysrhythmia, Cerebrovascular Disease, Congenital Heart Disease, CHF, CAD, [place], Pacemaker, PVD, Valvular Heart Disease, Cardiovascular Problems Psychological: History of: Anxiety Disorders, Depression No history of: ADHD, Behavior Problems, Bipolar Disorder, Previous Suicide Attempt, Psychiatric/Substance Abuse Tx, Schizophrenia, Violent Behavior, Psychiatric Problems Neurology: No history of: Brain Aneurysm, Cerebral Hemorrhage, Cerebrovascular Accident , Cerebral Palsy, Dementia, Migraine, Multiple Sclerosis, Parkinson's Disease, Peripheral Neuropathy, Seizures, TIA, Vertigo, Neurologocal Cancer HEENT: No history of: Ear Problem, Eye Problem, Dental Problems, Glaucoma, Oral Cancer, HEENT Problems Endocrine: History of: Diabetes Mellitus (IDDM), Dyslipidemia No history of: Adrenal Disease, Diabetes Mellitus (NIDDM), Thyroid Disorder, Endocrine Cancer, Endocrine Problems Rheumatology: No history of;: Fibromyalgia, Gout, Myasthenia Gravis, Psoriasis, Rheumatoid Arthritis, Sjogrens, Systemic Lupus Erythematosus, Rheumatological Problems Respiratory: No history of: Asthma, Bronchitis, COPD, Intubation, Obstructive Sleep Apnea , Pulmonary Embolism, Pulmonary Hypertension, Pneumonia, Lung Cancer, Respiratory Problems Renal: No history of: Renal (Kidney) Cancer, Dialysis, Renal Failure, Renal Problems Genitourinary: No history of: Bladder Problem, Kidney Stones, Recurring Urinary Tract Infections, Genitourinary Cancer, Problems Gastrointestinal: No history of: Bowel Obstruction, Clostridium Difficile, Crohn's Disease, Diverticulitis/ Diverticulosis, Esophageal Varices, GERD, Gastrointestinal Bleed , Hemorrhoids, Hematochezia, Hepatitis, Liver Problems, Pancreatitis, Polyps, Ulcerative Colitis, Gastrointestinal Cancer, GI Problems Musculoskeletal: No history of: Amputation, Back/Neck Problems, Degenerative Disk Disease, Herniated Disk, Osteoporosis, Musculoskeletal Cancer, Musculoskeletal Problems Hematology: No history of: Anemia, Blood Transfusion Reaction, Bleeding Problems, Clotting Problems, Sickle Cell Disease, Hematologic Cancer, Blood Disorders Reproductive: No history of: Abnormal Pap Smear, Breast Cancer, Endometriosis, Ectopic , Ovarian Cysts, Complication, Sexually Transmitted Disorders , Reproductive Cancer, Reproductive Problems Other: No history of: Anesthesia Reactions, Anaphylaxis, Cancer, Eczema, HIV, Malignant Hyperthermia, MRSA, Vancomycin-Resistant Enterococci, Skin Problems, Miscellaneous Medical Problems - Surgical History Cardiac Surgeries: Patient Denies: Femoral-Popliteal Bypass Graft, Cardiac Catheterization, Cardiac Surgery, Carotid Endarterectomy, Internal Defibrillator, Vascular Access Devices Thoracic Surgeries: Patient denies;: Kidney (Renal Surgery), Lithotripsy, Nephrectomy, Organ Transplant, Lobectomy Neurologic Surgeries: Patient denies: Brain Aneurysm, Cerebral Hemorrhage, Neurologic Surgery HEENT Surgeries: Patient denies: Carotid Endarterectomy, Eye Surgery, Thyroid Surgery, Tonsilectomy & Adenoidectomy Abdominal Surgeries: Patient denies: Abdominal Surgery, Appendectomy, Cholecystectomy, Colonoscopy , Gastric Bypass Surgery, EGD, Hernia Repair, Splenectomy Reproductive Surgeries: Surgical HX of;: Section, Tubal Ligation Patient denies;: Breast Surgery, Cystoscopy, Dilation and Curettage, Genitourinary Surgery, Gynecologic Surgery, Hysterectomy Orthopedic Surgeries: Patient denies;: Implanted Devices, Orthopedic Surgery, Spinal Surgery, Total Hip Replacement, Total Knee Replacement - Family History Family History: Reports;: Family Diabetes (father mother sister), Family Heart Disease (father), Family Hypertension (father), Family Stroke (mother), Additional Family History (sister,nephew dialysis,neice) Denies;: Family Anesthesia Reaction, Family Cancer (neice kidney ca), Family Hematology, Family Psychiatric Problems - Social History Smoking Status: Former smoker (She quit 3 years ago) Frequency of Alcohol Use: None Type of Drug Use: None Exam - Vital Signs Vital signs: Period Temp Pulse Resp BP Sys/Encarnacion Pulse Ox Last 24 Hr 97.6 F-99.8 F 61-89 18-20 99-160/50-80 93-95 Results - Labs CBC & BMP: 07/19/16 16:30 07/19/16 16:30 Assessment and Plan (1) Acute kidney injury superimposed on CKD Status: Acute Assessment and plan: This patient's creatinine has increased from around 2.5 mg/dL a few months ago, I think this is related to her severe anemia and hypoalbuminemia and decreased intravascular volume which was exacerbated by diuretics and GRACE inhibition. I am going to check a serum albumin level, I agree with holding her diuretics and GRACE inhibitor for right now. I am hesitant to give her any IV fluids at this time due to her volume overload, we may want to consider giving her some albumin for a few days. Current Visit: Yes (2) Anemia Status: Acute Assessment and plan: Patient has been transfused her hematocrit is now around 35% Current Visit: Yes (3) Menorrhagia Status: Acute Current Visit: Yes (4) Diabetes mellitus Status: Acute Current Visit: No (5) Hypertension Status: Acute Assessment and plan: This is controlled. Current Visit: No (6) Peripheral edema Status: Acute Current Visit: No Specialty Discharge - Follow Up or Referrals Follow up with: Aaron Davila MD [Physician] - 08/01/16 10:00 am
[2016-07-20] MEDS: PRAVASTATIN 40 MG TABLET PO SCH (20:11)
[2016-07-20] MEDS: cefTRIAXone 1,000 MG in SODIUM CHLORIDE 0.9% 100 ML IV SCH (20:15)
[2016-07-21 00:19] LABS: Microalbum/Creat Ratio Random 8101.3 RATIO (0-30)
[2016-07-21 06:07] LABS: Basophils % 0.4 % (0.0-0.8); Eosinophils # 0.4 10*3/uL (0.0-0.87); Eosinophils % 4.5 % (0.00-10.9); Hematocrit 30.2 VOL% (35.7-47.0); Hemoglobin 9.9 GM/DL (12.0-16.0); Immature Granulocytes % 0.5 %; Immature Granulocytes Absolute 0.04 #; Lymphocytes # 2.5 10*3/uL (1.4-4.0); Lymphocytes % 29.6 % (21.3-54.2); Mean Corpuscular HGB Conc 32.8 GM/DL (32-36); Mean Corpuscular Hemoglobin 30 PG (27-34); Mean Corpuscular Volume 90.7 FL (87-102); Mean Platelet Volume 10.3 FL (9.6-12.0); Monocytes # 0.5 10*3/uL (0.11-0.8); Monocytes % 5.8 % (1.7-12.7); Neutrophils # 5.1 10*3/uL (1.4-7.4); Neutrophils % 59.2 % (38.7-73.9); Platelet Count 231 T/CUMM (130-400); Red Blood Count 3.33 MC/CUMM (3.8-5.5); Red Cell Distribution Width 12.6 % (9.3-17.3); White Blood Count 8.5 T/CUMM (4-12)
[2016-07-21 06:38] LABS: Albumin 1.3 G/DL (3.4-5.0); Calcium 7.4 MG/DL (8.5-10.1); Osmolality,Calculated 301.8 MOS/KG (273-304); Phosphorous 5.8 MG/DL (2.5-4.9); Potassium 3.8 MMOL/L (3.5-5.1)
[2016-07-21] MEDS: CARVEDILOL 25 MG TABLET PO SCH ×3 (07:37→22:10)
[2016-07-21] MEDS: INSULIN LISPRO 100 UNIT/ML SUBCUT SCH ×4 (07:37→23:49)
[2016-07-21] MEDS: hydrALAZINE 25 MG TABLET PO SCH ×3 (07:38→22:09)
[2016-07-21] MEDS: GABAPENTIN 300 MG CAPSULE PO SCH ×4 (07:38→22:10)
[2016-07-21] MEDS: PANTOPRAZOLE 40 MG TABLET PO SCH ×2 (07:38→09:01)
[2016-07-21] MEDS ORDERED: ALBUMIN 25% 50 GM in PREMIX 1 EACH IV ONE (09:00)
--- NOTE | 2016-07-21 09:59 | Nephrology Progress Note ---
Nephrology - PN: Subj Interval history: Patient denies shortness of breath. Review of systems GI she denies nausea vomiting Physical exam general patient is in no acute distress Assessment/plan 1. Acute renal failure-patient's creatinine slightly worse today we will continue to monitor this 2. Diabetes mellitus 3. Anemia 4. Hypertension this is controlled 5. Urinary tract infection 6. Albuminuria-this patient has about 8 g of protein leakage per day, her albumin level in her serum is 1.3, I am going to give her salt poor albumin twice a day for about 3 days to support her intravascular volume while she recovers from her infection. Exam (PN)-Nephrology - Vital Signs Vital signs: Period Temp Pulse Resp BP Sys/Encarnacion Pulse Ox Last 24 Hr 97.0 F-99.3 F 61-82 18-22 99-213/50-101 95-98 - Lab 07/21/16 05:33 07/21/16 05:33 Most recent lab results Calcium 7.4 MG/DL (8.5-10.1) L 07/21/16 05:33 Phosphorus 5.8 MG/DL (2.5-4.9) H 07/21/16 05:33 Assessment and Plan (1) Acute kidney injury superimposed on CKD Status: Acute Assessment and plan: This patient's creatinine has increased from around 2.5 mg/dL a few months ago, I think this is related to her severe anemia and hypoalbuminemia and decreased intravascular volume which was exacerbated by diuretics and GRACE inhibition. I am going to check a serum albumin level, I agree with holding her diuretics and GRACE inhibitor for right now. I am hesitant to give her any IV fluids at this time due to her volume overload, we may want to consider giving her some albumin for a few days. Current Visit: Yes (2) Anemia Status: Acute Assessment and plan: Patient has been transfused her hematocrit is now around 35% Current Visit: Yes (3) Menorrhagia Status: Acute Current Visit: Yes (4) Diabetes mellitus Status: Acute Current Visit: No (5) Hypertension Status: Acute Assessment and plan: This is controlled. Current Visit: No (6) Peripheral edema Status: Acute Current Visit: No Specialty Discharge - Follow Up or Referrals Follow up with: Aaron Davila MD [Physician] - 08/01/16 10:00 am
--- NOTE | 2016-07-21 10:22 | Hospitalist Progress Note ---
Assessment and Plan - Time spent with patient Time spent with patient: Greater than 30 minutes (1) Anemia Status: Acute Assessment and plan: Stable. Current Visit: Yes (2) Menorrhagia Status: Acute Assessment and plan: Evaluated by OBGYN. Current Visit: Yes (3) UTI (urinary tract infection) Status: Acute Assessment and plan: rocephin. Current Visit: No Qualifiers: Urinary tract infection type: acute cystitis Hematuria presence: without hematuria Qualified Code(s): N30.00 - Acute cystitis without hematuria (4) Acute kidney injury superimposed on CKD Status: Acute Assessment and plan: Appreciate nephrology's assistance in this matter. Will initiate albumin as per their request. Current Visit: Yes (5) DM2 (diabetes mellitus, type 2) Status: Acute Assessment and plan: Restart her medications. Patient has diabetic nephropathy. Current Visit: No Qualifiers: Diabetes mellitus complication status: with kidney complications Diabetes mellitus complication detail: with nephropathy Hospitalist: Subjective Interval history: No complaints, no overnight events. Exam - Constitutional Vitals: Period Temp Pulse Resp BP Sys/Encarnacion Pulse Ox Last 24 Hr 97.0 F-99.3 F 61-82 18-22 99-213/50-101 95-98 General appearance: no acute distress - Head Head exam: Present: normocephalic, atraumatic - Eye Eye exam: Present: EOMI Pupils: Present: JOLYNN - ENT ENT exam: Present: normal exam - Neck Neck exam: Present: normal inspection - Respiratory Respiratory exam: Present: clear to auscultation bilaterally. Absent: rhonchi, wheezes - Cardiovascular Cardiovascular exam: Present: regular rate and rhythm. Absent: gallop, rubs, systolic murmur - GI/Abdominal GI/Abdominal exam: Present: normal bowel sounds, soft. Absent: distended, firm , guarding, tenderness, rebound - Extremities Exam Extremities exam: Absent: calf tenderness, edema (1+ bilaterally) Results - Labs CBC & BMP: 07/21/16 05:33 07/21/16 05:33 Lab Results: I have reviewed the past 24 hour labs Specialty Discharge - Follow Up or Referrals Follow up with: Aaron Davila MD [Physician] - 08/01/16 10:00 am
[2016-07-21] MEDS: INSULIN GLARGINE 100 UNIT/ML SUBCUT SCH (11:00)
[2016-07-21] MEDS: PRAVASTATIN 40 MG TABLET PO SCH (22:10)
[2016-07-21] MEDS: cefTRIAXone 1,000 MG in SODIUM CHLORIDE 0.9% 100 ML IV SCH (22:12)
[2016-07-21] MEDS: ALBUMIN 25% 25 GM in PREMIX 1 EACH IV SCH (23:13)
[2016-07-22 05:24] LABS: Basophils % 0.3 % (0.0-0.8); Eosinophils # 0.2 10*3/uL (0.0-0.87); Eosinophils % 2.7 % (0.00-10.9); Hematocrit 25.1 VOL% (35.7-47.0); Hemoglobin 8.2 GM/DL (12.0-16.0); Immature Granulocytes % 0.4 %; Immature Granulocytes Absolute 0.03 #; Lymphocytes # 2.1 10*3/uL (1.4-4.0); Lymphocytes % 27.7 % (21.3-54.2); Mean Corpuscular HGB Conc 32.7 GM/DL (32-36); Mean Corpuscular Hemoglobin 30 PG (27-34); Mean Corpuscular Volume 90.3 FL (87-102); Mean Platelet Volume 10.1 FL (9.6-12.0); Monocytes # 0.4 10*3/uL (0.11-0.8); Monocytes % 5.1 % (1.7-12.7); Neutrophils # 4.8 10*3/uL (1.4-7.4); Neutrophils % 63.8 % (38.7-73.9); Platelet Count 200 T/CUMM (130-400); Red Blood Count 2.78 MC/CUMM (3.8-5.5); Red Cell Distribution Width 12.7 % (9.3-17.3); White Blood Count 7.5 T/CUMM (4-12)
[2016-07-22 05:54] LABS: Calcium 6.7 MG/DL (8.5-10.1); Osmolality,Calculated 315.4 MOS/KG (273-304); Potassium 3.8 MMOL/L (3.5-5.1)
[2016-07-22] MEDS: ACETAMINOPHEN 325 MG TABLET PO PRN ×2 (09:04→14:52)
[2016-07-22] MEDS: GABAPENTIN 300 MG CAPSULE PO SCH ×3 (09:04→21:14)
[2016-07-22] MEDS: hydrALAZINE 25 MG TABLET PO SCH (09:04)
[2016-07-22] MEDS: PANTOPRAZOLE 40 MG TABLET PO SCH (09:04)
[2016-07-22] MEDS: CARVEDILOL 25 MG TABLET PO SCH ×2 (09:05→21:14)
[2016-07-22] MEDS: INSULIN LISPRO 100 UNIT/ML SUBCUT SCH ×4 (09:05→21:22)
[2016-07-22] MEDS: ALBUMIN 25% 25 GM in PREMIX 1 EACH IV SCH ×2 (09:05→21:52)
[2016-07-22] MEDS: INSULIN GLARGINE 100 UNIT/ML SUBCUT SCH (09:06)
--- NOTE | 2016-07-22 09:36 | Nephrology Progress Note ---
Nephrology - PN: Subj Interval history: Patient denies shortness of breath. Review of systems GI she denies nausea or vomiting or diarrhea Physical exam general the patient is chronically ill-appearing, she has 2+ lower extremity edema Assessment/plan 1. Acute renal failure on chronic renal failure-this patient's creatinine is increased to 4.4 mg/dL this may be reflective of her earlier injury from her quite severe anemia. Hopefully her creatinine will begin to stabilize if not improve. Her creatinine about 3 or 4 months ago was 3.5 mg/dL 2. Diabetes mellitus 3. Anemia 4. Hypertension-I am going to increase her hydralazine to 100 mg p.o. twice daily, at some point will resume diuretics on this patient however while she is trying to recover from her kidney injury I think it is best to hold on this. Exam (PN)-Nephrology - Vital Signs Vital signs: Period Temp Pulse Resp BP Sys/Encarnacion Pulse Ox Last 24 Hr 97.6 F-100.1 F 82-93 17-18 146-179/71-91 95-97 - Lab 07/22/16 05:05 07/22/16 05:05 Most recent lab results Calcium 6.7 MG/DL (8.5-10.1) L 07/22/16 05:05 Phosphorus 5.8 MG/DL (2.5-4.9) H 07/21/16 05:33 Assessment and Plan (1) Acute kidney injury superimposed on CKD Status: Acute Assessment and plan: This patient's creatinine has increased from around 2.5 mg/dL a few months ago, I think this is related to her severe anemia and hypoalbuminemia and decreased intravascular volume which was exacerbated by diuretics and GRACE inhibition. I am going to check a serum albumin level, I agree with holding her diuretics and GRACE inhibitor for right now. I am hesitant to give her any IV fluids at this time due to her volume overload, we may want to consider giving her some albumin for a few days. Current Visit: Yes (2) Anemia Status: Acute Assessment and plan: Patient has been transfused her hematocrit is now around 35% Current Visit: Yes (3) Menorrhagia Status: Acute Current Visit: Yes (4) Diabetes mellitus Status: Acute Current Visit: No (5) Hypertension Status: Acute Assessment and plan: This is controlled. Current Visit: No (6) Peripheral edema Status: Acute Current Visit: No Specialty Discharge - Follow Up or Referrals Follow up with: Aaron Davila MD [Physician] - 08/01/16 10:00 am
--- NOTE | 2016-07-22 11:26 | Hospitalist Progress Note ---
Assessment and Plan - Time spent with patient Time spent with patient: Greater than 30 minutes (1) Anemia Status: Acute Assessment and plan: Stable. Current Visit: Yes (2) Menorrhagia Status: Acute Assessment and plan: Evaluated by OBGYN. Current Visit: Yes (3) UTI (urinary tract infection) Status: Acute Assessment and plan: rocephin. Current Visit: No Qualifiers: Urinary tract infection type: acute cystitis Hematuria presence: without hematuria Qualified Code(s): N30.00 - Acute cystitis without hematuria (4) Acute kidney injury superimposed on CKD Status: Acute Assessment and plan: Creatinine is increased to 4.4. Appreciate nephrology's assistance in this matter. Current Visit: Yes (5) DM2 (diabetes mellitus, type 2) Status: Acute Assessment and plan: Continue current management. Patient has diabetic nephropathy. Current Visit: No Qualifiers: Diabetes mellitus complication status: with kidney complications Diabetes mellitus complication detail: with nephropathy Hospitalist: Subjective Interval history: No complaints, patient has been having low-grade fevers. Exam - Constitutional Vitals: Period Temp Pulse Resp BP Sys/Encarnacion Pulse Ox Last 24 Hr 97.6 F-100.1 F 82-94 17-20 146-179/71-91 95-97 General appearance: no acute distress - Head Head exam: Present: normocephalic, atraumatic - Eye Eye exam: Present: EOMI Pupils: Present: JOLYNN - ENT ENT exam: Present: normal exam - Neck Neck exam: Present: normal inspection - Respiratory Respiratory exam: Present: clear to auscultation bilaterally. Absent: rhonchi, wheezes - Cardiovascular Cardiovascular exam: Present: regular rate and rhythm. Absent: gallop, rubs, systolic murmur - GI/Abdominal GI/Abdominal exam: Present: normal bowel sounds, soft. Absent: distended, firm , guarding, tenderness, rebound - Extremities Exam Extremities exam: Present: normal inspection. Absent: calf tenderness, edema Results - Labs CBC & BMP: 07/22/16 05:05 07/22/16 05:05 Lab Results: I have reviewed the past 24 hour labs Specialty Discharge - Follow Up or Referrals Follow up with: Aaron Davila MD [Physician] - 08/01/16 10:00 am
--- NOTE | 2016-07-22 12:59 | Physician Query Form ---
CLICK EDIT DOCUMENT TO SELECT QUERY ANSWER --> OK --> SIGN Arline Vallejo RN, CCDS Certified Clinical Cloth Finishing Range Operator Chief W) [phone] (f) [phone] [email or web address] PROVIDERS: Make your selection(s) from the choices in EACH section by typing an "x" and enter comments in the comment section. Please use your independent medical judgment in providing your response. This request does not imply that any particular answer is desired or expected. CLINICAL INDICATORS: (Providers should not edit this section) The medical record indicates that the patient was admitted with Menorrhagia, YOLIE developed, creatinine of 3.70 on the that increased to 4.40 on the , GFR of 18 on the that has decreased to 15 on the , and "this may be reflective of her earlier injury from her quite severe anemia". Based on the above, could you clarify the appropriate diagnosis, if significant , that supports the above abnormalities and additional evaluation, monitoring, and/or treatment rendered: ( x) YOLIE without ATN ( ) YOLIE with ATN ( ) Other, please specify: ( ) Clinically unable to determine COMMENTS: Use of terms such as suspected, likely, or probable (associated with a specific diagnosis that is being evaluated, monitored, or treated as if it exists) are acceptable and can be restated in the discharge summary if not ruled out. MTDD
[2016-07-22] MEDS: PRAVASTATIN 40 MG TABLET PO SCH (21:14)
[2016-07-22] MEDS: cefTRIAXone 1,000 MG in SODIUM CHLORIDE 0.9% 100 ML IV SCH (23:02)
[2016-07-23] MEDS: INSULIN LISPRO 100 UNIT/ML SUBCUT SCH ×4 (07:51→21:41)
[2016-07-23] MEDS: INSULIN GLARGINE 100 UNIT/ML SUBCUT SCH (08:50)
[2016-07-23] MEDS: PANTOPRAZOLE 40 MG TABLET PO SCH (08:51)
[2016-07-23] MEDS: CARVEDILOL 25 MG TABLET PO SCH ×2 (08:51→21:36)
[2016-07-23] MEDS: ALBUMIN 25% 25 GM in PREMIX 1 EACH IV SCH ×2 (08:51→21:15)
[2016-07-23] MEDS: GABAPENTIN 300 MG CAPSULE PO SCH ×3 (08:51→21:37)
--- NOTE | 2016-07-23 11:32 | Nephrology Progress Note ---
Nephrology - PN: Subj Interval history: Patient denies shortness of breath. Review of systems GI she denies any blood in her bowel movements. 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 Acute renal failure on chronic kidney disease-this patient' s creatinine was 4.4 mg/dL yesterday, we will recheck a BMP in the morning 2. Anemia-this patient's hematocrit is dropped to 25% from 34% about 3 days ago after a blood transfusion given to bring her blood count up from 21%. I am going to Hemoccult her stool. I am not sure where she is bleeding from. 3. Menometrorrhagia-patient is ready to have a hysterectomy and wants to visit with Dr. Helm again about this, she states she is ready to have it done while she is in the hospital now. Will ask Dr. Helm to come by tomorrow Exam (PN)-Nephrology - Vital Signs Vital signs: Period Temp Pulse Resp BP Sys/Encarnacion Pulse Ox Last 24 Hr 97.5 F-100.8 F 81-96 18-20 150-195/75-94 91-98 - Lab 07/22/16 05:05 07/22/16 05:05 Most recent lab results Calcium 6.7 MG/DL (8.5-10.1) L 07/22/16 05:05 Phosphorus 5.8 MG/DL (2.5-4.9) H 07/21/16 05:33 Assessment and Plan (1) Acute kidney injury superimposed on CKD Status: Acute Assessment and plan: This patient's creatinine has increased from around 2.5 mg/dL a few months ago, I think this is related to her severe anemia and hypoalbuminemia and decreased intravascular volume which was exacerbated by diuretics and GRACE inhibition. I am going to check a serum albumin level, I agree with holding her diuretics and GRACE inhibitor for right now. I am hesitant to give her any IV fluids at this time due to her volume overload, we may want to consider giving her some albumin for a few days. Current Visit: Yes (2) Anemia Status: Acute Assessment and plan: Patient has been transfused her hematocrit is now around 35% Current Visit: Yes (3) Menorrhagia Status: Acute Current Visit: Yes (4) Diabetes mellitus Status: Acute Current Visit: No (5) Hypertension Status: Acute Assessment and plan: This is controlled. Current Visit: No (6) Peripheral edema Status: Acute Current Visit: No Specialty Discharge - Follow Up or Referrals Follow up with: Aaron Davila MD [Physician] - 08/01/16 10:00 am
[2016-07-23] MEDS: CETIRIZINE 10 MG TABLET PO SCH (13:00)
--- NOTE | 2016-07-23 15:59 | Hospitalist Progress Note ---
Assessment and Plan - Time spent with patient Time spent with patient: Greater than 30 minutes (1) Anemia Status: Acute Assessment and plan: Stable. Current Visit: Yes (2) Menorrhagia Status: Acute Assessment and plan: Evaluated by OBGYN. Current Visit: Yes (3) UTI (urinary tract infection) Status: Acute Assessment and plan: We will stop antibiotic. Current Visit: No Qualifiers: Urinary tract infection type: acute cystitis Hematuria presence: without hematuria Qualified Code(s): N30.00 - Acute cystitis without hematuria (4) Acute kidney injury superimposed on CKD Status: Acute Assessment and plan: Creatinine is increased to 4.4. Appreciate nephrology's assistance in this matter. Current Visit: Yes (5) DM2 (diabetes mellitus, type 2) Status: Acute Assessment and plan: Continue current management. Patient has diabetic nephropathy. Current Visit: No Qualifiers: Diabetes mellitus complication status: with kidney complications Diabetes mellitus complication detail: with nephropathy Hospitalist: Subjective Interval history: Patient states she wants to be evaluated by Dr. Davila for hysterectomy during this admission. Furthermore she has been having a fever but denies any symptoms of cough dysuria neckache diarrhea. Exam - Constitutional Vitals: Period Temp Pulse Resp BP Sys/Encarnacion Pulse Ox Last 24 Hr 97.5 F-100.8 F 81-96 18-20 150-195/75-94 91-96 General appearance: no acute distress - Head Head exam: Present: normocephalic, atraumatic - Eye Eye exam: Present: EOMI Pupils: Present: JOLYNN - ENT ENT exam: Present: normal exam - Neck Neck exam: Present: normal inspection - Respiratory Respiratory exam: Present: clear to auscultation bilaterally. Absent: rhonchi, wheezes - Cardiovascular Cardiovascular exam: Present: regular rate and rhythm. Absent: gallop, rubs, systolic murmur - GI/Abdominal GI/Abdominal exam: Present: normal bowel sounds, soft. Absent: distended, firm , guarding, tenderness, rebound - Extremities Exam Extremities exam: Present: normal inspection. Absent: calf tenderness, edema Results - Labs CBC & BMP: 07/22/16 05:05 07/22/16 05:05 Lab Results: I have reviewed the past 24 hour labs Specialty Discharge - Follow Up or Referrals Follow up with: Aaron Davila MD [Physician] - 08/01/16 10:00 am
[2016-07-23] MEDS: ACETAMINOPHEN 325 MG TABLET PO PRN (21:35)
[2016-07-23] MEDS: PRAVASTATIN 40 MG TABLET PO SCH (21:40)
[2016-07-24 05:15] LABS: Basophils % 0.2 % (0.0-0.8); Eosinophils # 0.2 10*3/uL (0.0-0.87); Eosinophils % 1.6 % (0.00-10.9); Hematocrit 23.4 VOL% (35.7-47.0); Hemoglobin 7.6 GM/DL (12.0-16.0); Immature Granulocytes % 0.7 %; Immature Granulocytes Absolute 0.07 #; Lymphocytes # 1.1 10*3/uL (1.4-4.0); Lymphocytes % 11.3 % (21.3-54.2); Mean Corpuscular HGB Conc 32.5 GM/DL (32-36); Mean Corpuscular Hemoglobin 30 PG (27-34); Mean Corpuscular Volume 92.9 FL (87-102); Monocytes # 0.5 10*3/uL (0.11-0.8); Monocytes % 4.9 % (1.7-12.7); Neutrophils # 8.1 10*3/uL (1.4-7.4); Neutrophils % 81.3 % (38.7-73.9); Platelet Count 188 T/CUMM (130-400); Red Blood Count 2.52 MC/CUMM (3.8-5.5); Red Cell Distribution Width 12.9 % (9.3-17.3)
[2016-07-24 05:26] LABS: INR 1.1; PT Patient Result 11.8 SECS; Partial Thromboplastin Time 33.2 SECS (0-40)
[2016-07-24 05:49] LABS: Calcium 6.9 MG/DL (8.5-10.1); Osmolality,Calculated 312.3 MOS/KG (273-304); Potassium 3.7 MMOL/L (3.5-5.1)
[2016-07-24 05:56] LABS: Bilirubin,Direct 0.2 MG/DL (0.0-0.20); Bilirubin,Total 0.7 MG/DL (0.2-1.0)
[2016-07-24] MEDS ORDERED: SODIUM CHLORIDE 0.9% 250 ML IV PRN (07:59)
--- NOTE | 2016-07-24 08:36 | Nephrology Progress Note ---
Nephrology - PN: Subj Interval history: Patient denies shortness of breath. Review of systems GI she denies nausea or vomiting Physical exam general the patient is chronically ill-appearing Assessment/plan 1. Acute renal failure-patient's creatinine is stabilized around 4.4 mg/dL, her previous baseline was around 3-1/2 mg/dL few months ago, I think this is all related to diabetic nephropathy however in light of her unexplained anemia and elevated ESR will check a KASSY anti-GBM Anka and C3-C4 levels. 2. Diabetes mellitus 3. Anemia-patient's hematocrit continues to decline it is 23% today down from 25%, workup for red cell destruction/hemolysis including haptoglobin LDH and bilirubin do not seem to indicate hemolysis on my interpretation 4. Hypertension this is controlled Exam (PN)-Nephrology - Vital Signs Vital signs: Period Temp Pulse Resp BP Sys/Encarnacion Pulse Ox Last 24 Hr 99.0 F-100.6 F 91-98 18-20 155-170/82-99 86-96 - Lab 07/24/16 04:43 07/24/16 04:43 Most recent lab results Calcium 6.9 MG/DL (8.5-10.1) L 07/24/16 04:43 Phosphorus 5.8 MG/DL (2.5-4.9) H 07/21/16 05:33 Assessment and Plan (1) Acute kidney injury superimposed on CKD Status: Acute Assessment and plan: This patient's creatinine has increased from around 2.5 mg/dL a few months ago, I think this is related to her severe anemia and hypoalbuminemia and decreased intravascular volume which was exacerbated by diuretics and GRACE inhibition. I am going to check a serum albumin level, I agree with holding her diuretics and GRACE inhibitor for right now. I am hesitant to give her any IV fluids at this time due to her volume overload, we may want to consider giving her some albumin for a few days. Current Visit: Yes (2) Anemia Status: Acute Assessment and plan: Patient has been transfused her hematocrit is now around 35% Current Visit: Yes (3) Menorrhagia Status: Acute Current Visit: Yes (4) Diabetes mellitus Status: Acute Current Visit: No (5) Hypertension Status: Acute Assessment and plan: This is controlled. Current Visit: No (6) Peripheral edema Status: Acute Current Visit: No Specialty Discharge - Follow Up or Referrals Follow up with: Aaron Davila MD [Physician] - 08/01/16 10:00 am
--- NOTE | 2016-07-24 08:38 | OB/GYN Consult Note ---
History of Present Illness Chief complaint: History of anemia History of present illness: Ms. Kerns is a 41 year old female Currently hospitalized with anemia and worsening renal function. Patient has not had any vaginal bleeding and received Depo-Provera on admission to control her periods. Patient was inquiring about surgical management; however due to her compromised renal function and high risk for surgery and currently not having any bleeding do not recommend surgical management at this time. We will continue to follow and will be happy to see as an outpatient once discharged Home Medications Medication Instructions Recorded Confirmed Type Pravastatin [Pravachol] 40 mg PO BEDTIME 12/21/14 07/17/16 History Gabapentin 300 mg PO TID 03/05/16 07/17/16 History hydrALAZINE TAB [Apresoline Tab] 25 mg PO BID 03/05/16 07/17/16 History Carvedilol [Coreg] 25 mg PO BID #60 tablet 03/09/16 07/17/16 Rx Furosemide Tab [Lasix Tab] 160 mg PO BID DIURETIC #120 tablet 03/27/16 07/17/16 Rx Insulin Glargine [Lantus] 30 unit SUBCUT QAM 07/17/16 07/17/16 History Lisinopril/Hydrochlorothiazide 1 each PO DAILY 07/17/16 07/17/16 History [Lisinopril-Hctz 20-25 mg Tab] Allergies Allergy/AdvReac Type Severity Reaction Status Date / Time No Known Allergies Allergy Verified 03/22/16 03:54 Medical,Surgical,& Family Hx - Medical History Cardio: History of: Hypertension No history of: Aneurysm, Cardiac Dysrhythmia, Cerebrovascular Disease, Congenital Heart Disease, CHF, CAD, [place], Pacemaker, PVD, Valvular Heart Disease, Cardiovascular Problems Psychological: History of: Anxiety Disorders, Depression No history of: ADHD, Behavior Problems, Bipolar Disorder, Previous Suicide Attempt, Psychiatric/Substance Abuse Tx, Schizophrenia, Violent Behavior, Psychiatric Problems Neurology: No history of: Brain Aneurysm, Cerebral Hemorrhage, Cerebrovascular Accident , Cerebral Palsy, Dementia, Migraine, Multiple Sclerosis, Parkinson's Disease, Peripheral Neuropathy, Seizures, TIA, Vertigo, Neurologocal Cancer HEENT: No history of: Ear Problem, Eye Problem, Dental Problems, Glaucoma, Oral Cancer, HEENT Problems Endocrine: History of: Diabetes Mellitus (IDDM), Dyslipidemia No history of: Adrenal Disease, Diabetes Mellitus (NIDDM), Thyroid Disorder, Endocrine Cancer, Endocrine Problems Rheumatology: No history of;: Fibromyalgia, Gout, Myasthenia Gravis, Psoriasis, Rheumatoid Arthritis, Sjogrens, Systemic Lupus Erythematosus, Rheumatological Problems Respiratory: No history of: Asthma, Bronchitis, COPD, Intubation, Obstructive Sleep Apnea , Pulmonary Embolism, Pulmonary Hypertension, Pneumonia, Lung Cancer, Respiratory Problems Renal: No history of: Renal (Kidney) Cancer, Dialysis, Renal Failure, Renal Problems Genitourinary: No history of: Bladder Problem, Kidney Stones, Recurring Urinary Tract Infections, Genitourinary Cancer, Problems Gastrointestinal: No history of: Bowel Obstruction, Clostridium Difficile, Crohn's Disease, Diverticulitis/ Diverticulosis, Esophageal Varices, GERD, Gastrointestinal Bleed , Hemorrhoids, Hematochezia, Hepatitis, Liver Problems, Pancreatitis, Polyps, Ulcerative Colitis, Gastrointestinal Cancer, GI Problems Musculoskeletal: No history of: Amputation, Back/Neck Problems, Degenerative Disk Disease, Herniated Disk, Osteoporosis, Musculoskeletal Cancer, Musculoskeletal Problems Hematology: No history of: Anemia, Blood Transfusion Reaction, Bleeding Problems, Clotting Problems, Sickle Cell Disease, Hematologic Cancer, Blood Disorders Reproductive: No history of: Abnormal Pap Smear, Breast Cancer, Endometriosis, Ectopic , Ovarian Cysts, Complication, Sexually Transmitted Disorders , Reproductive Cancer, Reproductive Problems Other: No history of: Anesthesia Reactions, Anaphylaxis, Cancer, Eczema, HIV, Malignant Hyperthermia, MRSA, Vancomycin-Resistant Enterococci, Skin Problems, Miscellaneous Medical Problems - Surgical History Cardiac Surgeries: Patient Denies: Femoral-Popliteal Bypass Graft, Cardiac Catheterization, Cardiac Surgery, Carotid Endarterectomy, Internal Defibrillator, Vascular Access Devices Thoracic Surgeries: Patient denies;: Kidney (Renal Surgery), Lithotripsy, Nephrectomy, Organ Transplant, Lobectomy Neurologic Surgeries: Patient denies: Brain Aneurysm, Cerebral Hemorrhage, Neurologic Surgery HEENT Surgeries: Patient denies: Carotid Endarterectomy, Eye Surgery, Thyroid Surgery, Tonsilectomy & Adenoidectomy Abdominal Surgeries: Patient denies: Abdominal Surgery, Appendectomy, Cholecystectomy, Colonoscopy , Gastric Bypass Surgery, EGD, Hernia Repair, Splenectomy Reproductive Surgeries: Surgical HX of;: Section, Tubal Ligation Patient denies;: Breast Surgery, Cystoscopy, Dilation and Curettage, Genitourinary Surgery, Gynecologic Surgery, Hysterectomy Orthopedic Surgeries: Patient denies;: Implanted Devices, Orthopedic Surgery, Spinal Surgery, Total Hip Replacement, Total Knee Replacement - Family History Family History: Reports;: Family Diabetes (father mother sister), Family Heart Disease (father), Family Hypertension (father), Family Stroke (mother), Additional Family History (sister,nephew dialysis,neice) Denies;: Family Anesthesia Reaction, Family Cancer (neice kidney ca), Family Hematology, Family Psychiatric Problems - Social History Smoking Status: Former smoker (She quit 3 years ago) Frequency of Alcohol Use: None Type of Drug Use: None 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
[2016-07-24] MEDS: GABAPENTIN 300 MG CAPSULE PO SCH ×3 (08:53→21:55)
[2016-07-24] MEDS: CETIRIZINE 10 MG TABLET PO SCH (08:54)
[2016-07-24] MEDS: CARVEDILOL 25 MG TABLET PO SCH ×2 (08:54→21:55)
[2016-07-24] MEDS: PANTOPRAZOLE 40 MG TABLET PO SCH (08:54)
[2016-07-24] MEDS: INSULIN GLARGINE 100 UNIT/ML SUBCUT SCH (08:55)
[2016-07-24] MEDS: ALBUMIN 25% 25 GM in PREMIX 1 EACH IV SCH ×2 (08:57→21:48)
[2016-07-24] MEDS: INSULIN LISPRO 100 UNIT/ML SUBCUT SCH ×4 (09:06→21:58)
--- NOTE | 2016-07-24 09:26 | Oncology Progress Note ---
Oncology Subjective PN Interval history: I was asked to see this patient because of anemia. She was initially found to be anemic when she went to see Dr. aline Rae for cataract surgery. The patient tells me she has had no upper or lower GI bleeding. However, she apparently has menorrhagia. Blood work done today includes a white cell count of 10,000 with an elevated absolute neutrophil count of 8100 and a low absolute lymphocyte count of 1100. She has a hemoglobin of 7.6. Her MCV is normal at 92.9. Her RDW is normal at 12.9. A reticulocyte count today is reported as high at 2.2. However, her corrected reticulocyte count would be within normal limits. Her haptoglobin is elevated at 251.0 which is elevated. On admission, the patient has a serum creatinine of 3.5. She also had proteinuria. Today, the patient still has an elevated serum creatinine 4.3. Also today, the patient has an LDH of 318 which is slightly elevated. Lab work on this patient today includes a low serum iron of 18 with a low iron binding capacity of 84 and an iron saturation of 21.4%. Her B12 level is 428 with a folic acid level of 11.9. ROS Gen.: Eyes: No history of chronic disease, infections or visual loss. ENT: No history of chronic infections, epistaxis, chronic sore throat Lungs: No history of asthma, emphysema, hemoptysis, chronic pleurisy or long- term or chronic infections Cardiovascular: No history of angina, coronary artery disease, congestive heart failure, cardiovascular surgery or DVT/VTE GI: No history of upper or lower GI bleeding, melena, dysphagia, odynophagia, liver disease, gallbladder disease or pancreatic disease. : No history of kidney stones, chronic kidney infections or hematuria. Musculoskeletal: No history of chronic bone or joint pain or focal muscle atrophy or bone or joint deformity. Neurologic: No history of seizures, convulsions or paralysis. Psychiatric: No history of chronic psychiatric illness or psychiatric medications. Lymphatic: No history of significant or long-term lymphadenopathy Hematologic: No history of hemolytic anemia. She has a history of heavy menses but no history of GI blood loss. Skin: No history of chronic skin infections or rashes or significant skin lesions. Physical examination: General: The patient is well-developed well-nourished and in no acute distress. Eyes: Normal lids and conjunctivae. ENT: Her hearing is normal. Her trachea is midline. Her thyroid feels normal. She has no neck masses. Her oral mucosa is normal. Lungs: Breath sounds are normal without rubs, rales or rhonchi. There is symmetrical unlabored chest motion with respiration. Cardiovascular: Her heart rhythm is regular without murmur, gallop or rub. There is no jugular venous distention, clubbing or cyanosis. Abdomen: I palpate no abdominal masses, organomegaly, distention, tenderness or ascites. Musculoskeletal: There is no obvious focal muscle atrophy or bone or joint deformity or arthritis. Neurologic: Cranial nerves II through XII are intact. Nodes: I palpate no submandibular, cervical, supraclavicular or axillary adenopathy. She has received blood transfusions. She is O+. Direct antibody testing was done on July 17, 2016 and there is no evidence of red cell antibodies. She has been transfused successfully so hemolytic anemia due to autoantibodies or acquired antibodies is unlikely. Impression: I think this patient is anemic as result of her chronic illness, specifically her renal failure in combination with iron deficiency anemia most likely from menorrhagia. Exam - Constitutional Vitals: Period Temp Pulse Resp BP Sys/Encarnacion Pulse Ox Last 24 Hr 99.0 F-100.6 F 91-98 18-20 155-170/82-99 86-96 Results - Labs CBC & BMP: 07/24/16 04:43 07/24/16 04:43 Specialty Discharge - Follow Up or Referrals Follow up with: Aaron Davila MD [Physician] - 08/01/16 10:00 am
--- NOTE | 2016-07-24 09:38 | XRay Report ---
XR chest 1V portable Indication: Fever Comparison: Chest x-ray 07/17/2016 Technique: Portable AP chest was performed. Findings: Since comparison study there has been interval development of bilateral airspace opacities in the mid to lower chest which obscure the left hemidiaphragm and appears superimposed on some areas of interstitial stranding bilaterally present within the lower chest. The heart size is borderline. Upper lungs are clear. Bones and soft tissues are stable. No specific abnormality of the pulmonary vasculature is demonstrated. Impression: 1. Given history of fever, the appearance of the chest is most suggestive of bilateral infectious process although pulmonary edema could have a similar appearance. 07/24/2016 9:34 AM PROCEDURE INTERPRETED AT [facility] DEPARTMENT OF RADIOLOGY Final Report Signed by: Dr. Kaleb Vallejo
[2016-07-24 09:56] LABS: % Iron Saturation 21.4 % (18-50)
[2016-07-24 10:09] LABS: Folate 11.9 NG/ML (5.4-24.0)
[2016-07-24] MEDS: ACETAMINOPHEN 325 MG TABLET PO PRN ×2 (10:15→17:10)
--- NOTE | 2016-07-24 11:56 | Hospitalist Progress Note ---
Assessment and Plan - Time spent with patient Time spent with patient: Greater than 30 minutes (1) Fever Status: Acute Assessment and plan: Etiology is unclear, will obtain chest x-ray urinalysis and pancultured. Nephrology is evaluating for possible auto immune. Current Visit: Yes (2) Anemia Status: Acute Assessment and plan: We will transfuse 2 more units of packed red blood cells. Hematology is evaluating the patient for hemolysis, appreciate their assistance and recommendations. Current Visit: Yes (3) Menorrhagia Status: Acute Assessment and plan: Evaluated by OBGYN. Current Visit: Yes (4) Acute kidney injury superimposed on CKD Status: Acute Assessment and plan: Creatinine is increased to 4.4. Appreciate nephrology's assistance in this matter. Current Visit: Yes (5) DM2 (diabetes mellitus, type 2) Status: Acute Assessment and plan: Continue current management. Patient has diabetic nephropathy. Current Visit: No Qualifiers: Diabetes mellitus complication status: with kidney complications Diabetes mellitus complication detail: with nephropathy Hospitalist: Subjective Interval history: Patient continues to have a low-grade fever. Her hemoglobin level has dropped today. Exam - Constitutional Vitals: Period Temp Pulse Resp BP Sys/Encarnacion Pulse Ox Last 24 Hr 99.0 F-101.3 F 94-98 18-20 154-170/75-99 86-100 General appearance: no acute distress - Head Head exam: Present: normocephalic, atraumatic - Eye Eye exam: Present: EOMI Pupils: Present: JOLYNN - ENT ENT exam: Present: normal exam - Neck Neck exam: Present: normal inspection - Respiratory Respiratory exam: Present: clear to auscultation bilaterally. Absent: rhonchi, wheezes - Cardiovascular Cardiovascular exam: Present: regular rate and rhythm. Absent: gallop, rubs, systolic murmur - GI/Abdominal GI/Abdominal exam: Present: normal bowel sounds, soft. Absent: distended, firm , guarding, tenderness, rebound - Extremities Exam Extremities exam: Present: normal inspection. Absent: calf tenderness, edema Results - Labs CBC & BMP: 07/24/16 04:43 07/24/16 04:43 Lab Results: I have reviewed the past 24 hour labs Specialty Discharge - Follow Up or Referrals Follow up with: Aaron Davila MD [Physician] - 08/01/16 10:00 am
[2016-07-24 12:06] LABS: Apearance,Urine Slightly Hazy (Clear); Bacteria,Urine Occasional /HPF (Few); Bilirubin,Urine Negative (Negative); Blood, Urine Negative (Negative); Glucose,Urine (UA) 50 mg/dL (Negative); Hyaline Casts,Urine 6 /LPF (0-3); Ketones,Urine Negative (Negative); Mucus,Urine Occasional /LPF (Occasional); Nitrite,Urine Negative (Negative); Protein,Urine >=500 MG/DL; RBC,Urine 9 /HPF (0-4); Squamous Epithelial Cell,Urine Occasional /HPF (0-10); Urine Color Yellow (Yellow); Urine Specific Gravity 1.022 (1.001-1.035); Urine Urobilinogen < 2.0 EU/DL (0.2-1.0); WBC,Urine 4 /HPF (0-6)
[2016-07-24] MEDS: LEVOFLOXACIN INJ 750 MG in PREMIX 1 EACH IV SCH (17:01)
[2016-07-24 18:00] LABS: Hematocrit 27.9 VOL% (35.7-47.0)
[2016-07-24] MEDS: PRAVASTATIN 40 MG TABLET PO SCH (21:55)
[2016-07-24] MEDS: ALUMINUM/MAGNES/SIMETH MAX STR 30 ML UDCUP PO PRN (23:48)
[2016-07-25 07:04] LABS: Double Stranded DNA Antibodies < 25.0 IU/ML
--- NOTE | 2016-07-25 07:36 | Oncology Consult Note ---
History of Present Illness History of present illness: Ms. Kerns is a 41 year old female who was admitted with anemia and renal failure. There was a question as to whether or not the patient might be hemolyzing but the patient actually has a high haptoglobin level rather than a low one. Her haptoglobin level was reported as 251 on July 24. Her reticulocyte count was 2.2 but this was not corrected. I expect her corrected reticulocyte count to be at least half of the reported result. Additional studies done on the patient included a normal B12 level of 128 with a normal folic acid level of 11.9. An KASSY screen is negative. The patient has a serum iron of 18, which is low along with a low total iron- binding capacity of 84 suggesting a component of anemia of chronic disease. I have ordered a serum protein electrophoresis and serum immunoelectrophoresis. I was asked to see this patient because of anemia. She was initially found to be anemic when she went to see a Dr. aline Rae for cataract surgery. The patient tells me she has had no upper or lower GI bleeding. However, she apparently has menorrhagia. ROS Gen.: Eyes: No history of chronic disease, infections or visual loss. ENT: No history of chronic infections, epistaxis, chronic sore throat Lungs: No history of asthma, emphysema, hemoptysis, chronic pleurisy or long- term or chronic infections Cardiovascular: No history of angina, coronary artery disease, congestive heart failure, cardiovascular surgery or DVT/VTE GI: No history of upper or lower GI bleeding, melena, dysphagia, odynophagia, liver disease, gallbladder disease or pancreatic disease. : No history of kidney stones, chronic kidney infections or hematuria. Musculoskeletal: No history of chronic bone or joint pain or focal muscle atrophy or bone or joint deformity. Neurologic: No history of seizures, convulsions or paralysis. Psychiatric: No history of chronic psychiatric illness or psychiatric medications. Lymphatic: No history of significant or long-term lymphadenopathy Hematologic: No history of hemolytic anemia. She has a history of heavy menses but no history of GI blood loss. Skin: No history of chronic skin infections or rashes or significant skin lesions. Physical examination: General: The patient is well-developed well-nourished and in no acute distress. Eyes: Normal lids and conjunctivae. ENT: Her hearing is normal. Her trachea is midline. Her thyroid feels normal. She has no neck masses. Her oral mucosa is normal. Lungs: Breath sounds are normal without rubs, rales or rhonchi. There is symmetrical unlabored chest motion with respiration. Cardiovascular: Her heart rhythm is regular without murmur, gallop or rub. There is no jugular venous distention, clubbing or cyanosis. Abdomen: I palpate no abdominal masses, organomegaly, distention, tenderness or ascites. Musculoskeletal: There is no obvious focal muscle atrophy or bone or joint deformity or arthritis. Neurologic: Cranial nerves II through XII are intact. Nodes: I palpate no submandibular, cervical, supraclavicular or axillary adenopathy. She has received blood transfusions. She is O+. Direct antibody testing was done on July 17, 2016 and there is no evidence of red cell antibodies. She has been transfused successfully so hemolytic anemia due to autoantibodies or acquired antibodies is unlikely. Impression: I have ordered additional laboratory studies but I am reasonably certain that the patient does not have a component of hemolytic anemia. I suspect that her anemia is due to iron deficiency and chronic disease. Home Medications Medication Instructions Recorded Confirmed Type Pravastatin [Pravachol] 40 mg PO BEDTIME 12/21/14 07/17/16 History Gabapentin 300 mg PO TID 03/05/16 07/17/16 History hydrALAZINE TAB [Apresoline Tab] 25 mg PO BID 03/05/16 07/17/16 History Carvedilol [Coreg] 25 mg PO BID #60 tablet 03/09/16 07/17/16 Rx Furosemide Tab [Lasix Tab] 160 mg PO BID DIURETIC #120 tablet 03/27/16 07/17/16 Rx Insulin Glargine [Lantus] 30 unit SUBCUT QAM 07/17/16 07/17/16 History Lisinopril/Hydrochlorothiazide 1 each PO DAILY 07/17/16 07/17/16 History [Lisinopril-Hctz 20-25 mg Tab] Allergies Allergy/AdvReac Type Severity Reaction Status Date / Time No Known Allergies Allergy Verified 03/22/16 03:54 Medical,Surgical,& Family Hx - Medical History Cardio: History of: Hypertension No history of: Aneurysm, Cardiac Dysrhythmia, Cerebrovascular Disease, Congenital Heart Disease, CHF, CAD, [place], Pacemaker, PVD, Valvular Heart Disease, Cardiovascular Problems Psychological: History of: Anxiety Disorders, Depression No history of: ADHD, Behavior Problems, Bipolar Disorder, Previous Suicide Attempt, Psychiatric/Substance Abuse Tx, Schizophrenia, Violent Behavior, Psychiatric Problems Neurology: No history of: Brain Aneurysm, Cerebral Hemorrhage, Cerebrovascular Accident , Cerebral Palsy, Dementia, Migraine, Multiple Sclerosis, Parkinson's Disease, Peripheral Neuropathy, Seizures, TIA, Vertigo, Neurologocal Cancer HEENT: No history of: Ear Problem, Eye Problem, Dental Problems, Glaucoma, Oral Cancer, HEENT Problems Endocrine: History of: Diabetes Mellitus (IDDM), Dyslipidemia No history of: Adrenal Disease, Diabetes Mellitus (NIDDM), Thyroid Disorder, Endocrine Cancer, Endocrine Problems Rheumatology: No history of;: Fibromyalgia, Gout, Myasthenia Gravis, Psoriasis, Rheumatoid Arthritis, Sjogrens, Systemic Lupus Erythematosus, Rheumatological Problems Respiratory: No history of: Asthma, Bronchitis, COPD, Intubation, Obstructive Sleep Apnea , Pulmonary Embolism, Pulmonary Hypertension, Pneumonia, Lung Cancer, Respiratory Problems Renal: No history of: Renal (Kidney) Cancer, Dialysis, Renal Failure, Renal Problems Genitourinary: No history of: Bladder Problem, Kidney Stones, Recurring Urinary Tract Infections, Genitourinary Cancer, Problems Gastrointestinal: No history of: Bowel Obstruction, Clostridium Difficile, Crohn's Disease, Diverticulitis/ Diverticulosis, Esophageal Varices, GERD, Gastrointestinal Bleed , Hemorrhoids, Hematochezia, Hepatitis, Liver Problems, Pancreatitis, Polyps, Ulcerative Colitis, Gastrointestinal Cancer, GI Problems Musculoskeletal: No history of: Amputation, Back/Neck Problems, Degenerative Disk Disease, Herniated Disk, Osteoporosis, Musculoskeletal Cancer, Musculoskeletal Problems Hematology: No history of: Anemia, Blood Transfusion Reaction, Bleeding Problems, Clotting Problems, Sickle Cell Disease, Hematologic Cancer, Blood Disorders Reproductive: No history of: Abnormal Pap Smear, Breast Cancer, Endometriosis, Ectopic , Ovarian Cysts, Complication, Sexually Transmitted Disorders , Reproductive Cancer, Reproductive Problems Other: No history of: Anesthesia Reactions, Anaphylaxis, Cancer, Eczema, HIV, Malignant Hyperthermia, MRSA, Vancomycin-Resistant Enterococci, Skin Problems, Miscellaneous Medical Problems - Surgical History Cardiac Surgeries: Patient Denies: Femoral-Popliteal Bypass Graft, Cardiac Catheterization, Cardiac Surgery, Carotid Endarterectomy, Internal Defibrillator, Vascular Access Devices Thoracic Surgeries: Patient denies;: Kidney (Renal Surgery), Lithotripsy, Nephrectomy, Organ Transplant, Lobectomy Neurologic Surgeries: Patient denies: Brain Aneurysm, Cerebral Hemorrhage, Neurologic Surgery HEENT Surgeries: Patient denies: Carotid Endarterectomy, Eye Surgery, Thyroid Surgery, Tonsilectomy & Adenoidectomy Abdominal Surgeries: Patient denies: Abdominal Surgery, Appendectomy, Cholecystectomy, Colonoscopy , Gastric Bypass Surgery, EGD, Hernia Repair, Splenectomy Reproductive Surgeries: Surgical HX of;: Section, Tubal Ligation Patient denies;: Breast Surgery, Cystoscopy, Dilation and Curettage, Genitourinary Surgery, Gynecologic Surgery, Hysterectomy Orthopedic Surgeries: Patient denies;: Implanted Devices, Orthopedic Surgery, Spinal Surgery, Total Hip Replacement, Total Knee Replacement - Family History Family History: Reports;: Family Diabetes (father mother sister), Family Heart Disease (father), Family Hypertension (father), Family Stroke (mother), Additional Family History (sister,nephew dialysis,neice) Denies;: Family Anesthesia Reaction, Family Cancer (neice kidney ca), Family Hematology, Family Psychiatric Problems - Social History Smoking Status: Former smoker (She quit 3 years ago) Frequency of Alcohol Use: None Type of Drug Use: None Exam - Constitutional Vitals: Period Temp Pulse Resp BP Sys/Encarnacion Pulse Ox Last 24 Hr 97.7 F-101.3 F 92-100 18- 126-162/58-89 80-100 Results - Labs CBC & BMP: 07/24/16 17:39 07/24/16 04:43 Specialty Discharge - Follow Up or Referrals Follow up with: Aaron Davila MD [Physician] - 08/01/16 10:00 am
[2016-07-25 08:09] LABS: Basophils % 0.2 % (0.0-0.8); Eosinophils # 0.2 10*3/uL (0.0-0.87); Eosinophils % 2.6 % (0.00-10.9); Hematocrit 27.3 VOL% (35.7-47.0); Hemoglobin 8.8 GM/DL (12.0-16.0); Immature Granulocytes % 1.1 %; Lymphocytes # 1.4 10*3/uL (1.4-4.0); Mean Corpuscular HGB Conc 32.2 GM/DL (32-36); Mean Corpuscular Hemoglobin 30 PG (27-34); Mean Corpuscular Volume 93.2 FL (87-102); Mean Platelet Volume 9.8 FL (9.6-12.0); Monocytes # 0.6 10*3/uL (0.11-0.8); Monocytes % 6.2 % (1.7-12.7); Neutrophils # 6.6 10*3/uL (1.4-7.4); Neutrophils % 73.9 % (38.7-73.9); Platelet Count 175 T/CUMM (130-400); Red Blood Count 2.93 MC/CUMM (3.8-5.5); Red Cell Distribution Width 13.6 % (9.3-17.3)
[2016-07-25] MEDS: INSULIN GLARGINE 100 UNIT/ML SUBCUT SCH (09:16)
[2016-07-25] MEDS: ACETAMINOPHEN 325 MG TABLET PO PRN (09:18)
[2016-07-25] MEDS: PANTOPRAZOLE 40 MG TABLET PO SCH (09:18)
[2016-07-25] MEDS: GABAPENTIN 300 MG CAPSULE PO SCH ×3 (09:18→21:42)
[2016-07-25] MEDS: CARVEDILOL 25 MG TABLET PO SCH ×2 (09:19→21:41)
[2016-07-25] MEDS: CETIRIZINE 10 MG TABLET PO SCH (09:19)
[2016-07-25] MEDS: ALUMINUM/MAGNES/SIMETH MAX STR 30 ML UDCUP PO PRN ×2 (09:24→21:47)
[2016-07-25] MEDS: INSULIN LISPRO 100 UNIT/ML SUBCUT SCH ×4 (10:15→21:43)
--- NOTE | 2016-07-25 11:44 | ECHO Report ---
Adrianne Kerns Exam Date: 07/25/2016 09:00 Referring Physician: Technologist: Peg Griffith Age: 41 Ht (in): 64 Wt (lb): 144 Gender: F Exam Location: [facility] Echo Indications: Fever, CKD, Anemia, HTN BP: 160 / 80 HR: 94 Rhythm: NSR Technical Quality: Good IMPRESSIONS Moderate concentric left ventricular hypertrophy left ventricular ejection fraction is estimated at 65 %. The moderate concentric LVH Moderate pulmonary hypertension Moderate to severe tricuspid insufficiency MEASUREMENTS (Male / Female) Normal Values 2D ECHO LV Diastolic Diameter PLAX 4.2 cm 4.2 - 5.9 / 3.9 - 5.3 cm LV Systolic Diameter PLAX 2.5 cm LV Fractional Shortening PLAX 41.7 % IVS Diastolic Thickness 1.2 cm 0.6 - 1.0 / 0.6 - 0.9 cm LVPW Diastolic Thickness 1.2 cm 0.6 - 1.0 / 0.6 - 0.9 cm RV Internal Dim ED PLAX 3.0 cm Aortic Root Diameter 2.5 cm LA Systolic Diameter LX 3.6 cm 3.0 - 4.0 / 2.7 - 3.8 cm DOPPLER TR Peak Velocity 353.0 cm/s TR Peak Gradient 49.8 mmHg FINDINGS Left Ventricle Normal left ventricular cavity size. Moderate concentric left ventricular hypertrophy left ventricular ejection fraction is estimated at 65 %. There is no regional wall motion abnormality. The LV wall is more hypertrophied than the above measurements and is moderate. Diastolic parameters are equivocal but not normal. Right Ventricle Normal right ventricular size. Right Atrium Normal right atrial size. Left Atrium Normal left atrial size. Mitral Valve Mild mitral valve sclerosis. Aortic Valve Mild aortic valve sclerosis without stenosis or regurgitation. Tricuspid Valve Morphologically normal tricuspid valve. Moderate tricuspid valve regurgitation. [id number] tricuspid valve regurgitation. Tricuspid regurgitation velocities suggest a PAP of 50 mmHg + RAP. Pulmonic Valve Morphologically normal pulmonic valve. Pericardium No pericardial effusion. There is a pleural effusion on the left. Aorta Normal size aortic root and proximal ascending aorta. Mechelle Lang (Electronically Signed) Final Date: 25 July 2016 11:43
[2016-07-25 11:51] LABS: Alanine Aminotransferase 84 U/L (13-56); Albumin 2.6 G/DL (3.4-5.0); Alkaline Phosphatase 115 U/L (45-117); Aspartate Amino Transferase 80 U/L (0-37); Blood Urea Nitrogen 60 MG/DL (7-18); Calcium 7.2 MG/DL (8.5-10.1); Glucose 122 MG/DL (74-106); Osmolality,Calculated 311.3 MOS/KG (273-304); Sodium 148 MMOL/L (136-145); Total Protein 4.8 G/DL (6.4-8.3)
[2016-07-25 12:53] LABS: Immunoglobulin A 115 MG/DL (70-400); Immunoglobulin G 346 MG/DL (700-1600); Immunoglobulin M < 21 MG/DL (40-230)
--- NOTE | 2016-07-25 13:04 | Nephrology Progress Note ---
Nephrology - PN: Subj Interval history: Patient denies shortness of breath. Review of systems GI she denies nausea or vomiting Physical exam general patient is in no acute distress Assessment/plan 1. Acute renal failure on chronic renal failure-this patient's creatinine stable around 4.4 mg/dL, the patient had a KASSY done yesterday that was negative her complement levels were negative as well, her double-stranded DNA was negative. Her urine sediment did not show very active sediment that is she did not have any increased red cells or casts. I suspect her renal injury is mostly related to diabetic nephropathy with perhaps an acute component related to her severe anemia at presentation. 2. Diabetes mellitus this is controlled 3. Anemia-patient's blood pressure drifted down rather rapidly after transfusion on her initial hospitalization but no source for blood loss was found, she has since had another 2 units of packed red blood cells and her blood count is up to 27% now 4. Volume overload-patient has a lot of peripheral edema however she is asymptomatic, will need to add back her diuretics but this probably be done as an outpatient. Patient is okay for discharge from my standpoint, I would like to see her back in the clinic in about 2 weeks with a CBC and a renal panel Exam (PN)-Nephrology - Vital Signs Vital signs: Period Temp Pulse Resp BP Sys/Encarnacion Pulse Ox Last 24 Hr 97.7 F-100.9 F 92-95 20-22 126-160/66-89 80-99 - Lab 07/25/16 08:01 07/25/16 08:01 Most recent lab results Calcium 7.2 MG/DL (8.5-10.1) L 07/25/16 08:01 Phosphorus 5.8 MG/DL (2.5-4.9) H 07/21/16 05:33 Assessment and Plan (1) Acute kidney injury superimposed on CKD Status: Acute Assessment and plan: This patient's creatinine has increased from around 2.5 mg/dL a few months ago, I think this is related to her severe anemia and hypoalbuminemia and decreased intravascular volume which was exacerbated by diuretics and GRACE inhibition. I am going to check a serum albumin level, I agree with holding her diuretics and GRACE inhibitor for right now. I am hesitant to give her any IV fluids at this time due to her volume overload, we may want to consider giving her some albumin for a few days. Current Visit: Yes (2) Anemia Status: Acute Assessment and plan: Patient has been transfused her hematocrit is now around 35% Current Visit: Yes (3) Menorrhagia Status: Acute Current Visit: Yes (4) Diabetes mellitus Status: Acute Current Visit: No (5) Hypertension Status: Acute Assessment and plan: This is controlled. Current Visit: No (6) Peripheral edema Status: Acute Current Visit: No Specialty Discharge - Follow Up or Referrals Follow up with: Aaron Davila MD [Physician] - 08/01/16 10:00 am Haresh Tinoco MD [Physician] - 2 Weeks (With a renal panel and a CBC)
--- NOTE | 2016-07-25 15:07 | Hospitalist Progress Note ---
Assessment and Plan - Time spent with patient Time spent with patient: Greater than 30 minutes (1) Fever Status: Acute Assessment and plan: Continue Levaquin for potential lung infection. Current Visit: Yes (2) Anemia Status: Acute Assessment and plan: Appears to be secondary to loss. Current Visit: Yes (3) Menorrhagia Status: Acute Assessment and plan: Evaluated by OBGYN. Current Visit: Yes (4) Acute kidney injury superimposed on CKD Status: Acute Assessment and plan: Creatinine is stable at 4.4. Current Visit: Yes (5) DM2 (diabetes mellitus, type 2) Status: Acute Assessment and plan: Continue current management. Patient has diabetic nephropathy. Current Visit: No Qualifiers: Diabetes mellitus complication status: with kidney complications Diabetes mellitus complication detail: with nephropathy Hospitalist: Subjective Interval history: Patient continues to fever. Has no complaints. Exam - Constitutional Vitals: Period Temp Pulse Resp BP Sys/Encarnacion Pulse Ox Last 24 Hr 97.7 F-100.9 F 92-95 20-22 126-160/66-89 80-99 General appearance: no acute distress - Head Head exam: Present: normocephalic, atraumatic - Eye Eye exam: Present: EOMI Pupils: Present: JOLYNN - ENT ENT exam: Present: normal exam - Neck Neck exam: Present: normal inspection - Respiratory Respiratory exam: Present: clear to auscultation bilaterally. Absent: rhonchi, wheezes - Cardiovascular Cardiovascular exam: Present: regular rate and rhythm. Absent: gallop, rubs, systolic murmur - GI/Abdominal GI/Abdominal exam: Present: normal bowel sounds, soft. Absent: distended, firm , guarding, tenderness, rebound - Extremities Exam Extremities exam: Absent: calf tenderness, edema (Very mild lower extremity edema 1- bilaterally) Results - Labs CBC & BMP: 07/25/16 08:01 07/25/16 08:01 Lab Results: I have reviewed the past 24 hour labs Specialty Discharge - Follow Up or Referrals Follow up with: Aaron Davila MD [Physician] - 08/01/16 10:00 am Haresh Tinoco MD [Physician] - 2 Weeks (With a renal panel and a CBC)
[2016-07-25] MEDS: PRAVASTATIN 40 MG TABLET PO SCH (21:43)
[2016-07-26 05:25] LABS: Total Protein (Chem) 4.8 G/DL (6.4-8.2)
[2016-07-26 05:26] LABS: Immunoglobulin A (Chem) 115 MG/DL (70-400); Immunoglobulin G (Chem) 346 MG/DL (700-1600); Immunoglobulin M (Chem) < 21 MG/DL (40-230)
[2016-07-26 07:39] LABS: Albumin (SPE) Rel % 62.8 %; Alpha 1 (SPE) 0.2 G/DL (0.1-0.4); Alpha 1 (SPE) Rel % 4.2 %; Alpha 2 (SPE) 0.8 G/DL (0.4-1.0); Alpha 2 (SPE) Rel % 17.1 %; Beta (SPE) 0.5 G/DL (0.5-1.1); Gamma (SPE) 0.3 G/DL (0.7-1.7); Gamma (SPE) Rel % 5.9 %
[2016-07-26] MEDS: INSULIN LISPRO 100 UNIT/ML SUBCUT SCH ×4 (07:49→21:14)
[2016-07-26] MEDS: GABAPENTIN 300 MG CAPSULE PO SCH ×3 (08:17→21:15)
[2016-07-26] MEDS: CARVEDILOL 25 MG TABLET PO SCH ×2 (08:17→21:15)
[2016-07-26] MEDS: CETIRIZINE 10 MG TABLET PO SCH (08:18)
[2016-07-26] MEDS: INSULIN GLARGINE 100 UNIT/ML SUBCUT SCH (08:18)
[2016-07-26] MEDS: PANTOPRAZOLE 40 MG TABLET PO SCH (08:18)
[2016-07-26 08:46] LABS: Basophils % 0.2 % (0.0-0.8); Eosinophils # 0.3 10*3/uL (0.0-0.87); Eosinophils % 3.8 % (0.00-10.9); Hematocrit 26.2 VOL% (35.7-47.0); Hemoglobin 8.7 GM/DL (12.0-16.0); Immature Granulocytes % 0.7 %; Immature Granulocytes Absolute 0.06 #; Lymphocytes # 1.7 10*3/uL (1.4-4.0); Lymphocytes % 19.3 % (21.3-54.2); Mean Corpuscular HGB Conc 33.2 GM/DL (32-36); Mean Corpuscular Hemoglobin 30 PG (27-34); Mean Corpuscular Volume 91.3 FL (87-102); Mean Platelet Volume 10.8 FL (9.6-12.0); Monocytes # 0.6 10*3/uL (0.11-0.8); Monocytes % 7.2 % (1.7-12.7); Neutrophils # 5.9 10*3/uL (1.4-7.4); Neutrophils % 68.8 % (38.7-73.9); Platelet Count 204 T/CUMM (130-400); Red Blood Count 2.87 MC/CUMM (3.8-5.5); Red Cell Distribution Width 13.5 % (9.3-17.3); White Blood Count 8.6 T/CUMM (4-12)
[2016-07-26 09:12] LABS: Calcium 7.4 MG/DL (8.5-10.1); Magnesium 1.8 MG/DL (1.8-2.4); Osmolality,Calculated 312.3 MOS/KG (273-304); Potassium 4.1 MMOL/L (3.5-5.1)
--- NOTE | 2016-07-26 09:51 | Oncology Progress Note ---
Oncology Subjective PN Interval history: There is no indication of hemolysis. I am ordering a serum free light chain assay to further evaluate proteins. It is remotely possible that this might be amyloid. I will check back Friday. Exam - Constitutional Vitals: Period Temp Pulse Resp BP Sys/Encarnacion Pulse Ox Last 24 Hr 98.9 F-100.6 F 84-94 17-22 142-179/66-82 91-99 Results - Labs CBC & BMP: 07/26/16 08:11 07/26/16 08:11 Specialty Discharge - Follow Up or Referrals Follow up with: Aaron Davila MD [Physician] - 08/01/16 10:00 am Haresh Tinoco MD [Physician] - 2 Weeks (With a renal panel and a CBC)
--- NOTE | 2016-07-26 10:15 | Hospitalist Progress Note ---
Assessment and Plan - Time spent with patient Time spent with patient: Greater than 30 minutes (1) Fever Status: Acute Assessment and plan: Continue Levaquin for potential lung infection. Current Visit: Yes (2) Anemia Status: Acute Assessment and plan: Appears to be secondary to loss. Current Visit: Yes (3) Menorrhagia Status: Acute Assessment and plan: Evaluated by OBGYN. Current Visit: Yes (4) Acute kidney injury superimposed on CKD Status: Acute Assessment and plan: Creatinine has risen to 4.7. Etiology is not entirely clear. May require a kidney biopsy. Current Visit: Yes (5) DM2 (diabetes mellitus, type 2) Status: Acute Assessment and plan: Continue current management. Patient has diabetic nephropathy. Current Visit: No Qualifiers: Diabetes mellitus complication status: with kidney complications Diabetes mellitus complication detail: with nephropathy Hospitalist: Subjective Interval history: No complaints, denies cough, dysuria. Tmax to 100.2 Exam - Constitutional Vitals: Period Temp Pulse Resp BP Sys/Encarnacion Pulse Ox Last 24 Hr 98.9 F-100.6 F 84-94 17-22 142-179/66-82 91-99 General appearance: no acute distress - Head Head exam: Present: normocephalic, atraumatic - Eye Eye exam: Present: EOMI Pupils: Present: JOLYNN - ENT ENT exam: Present: normal exam - Neck Neck exam: Present: normal inspection - Respiratory Respiratory exam: Present: clear to auscultation bilaterally. Absent: rhonchi, wheezes - Cardiovascular Cardiovascular exam: Present: regular rate and rhythm. Absent: gallop, rubs, systolic murmur - GI/Abdominal GI/Abdominal exam: Present: normal bowel sounds, soft. Absent: distended, firm , guarding, tenderness, rebound - Extremities Exam Extremities exam: Present: normal inspection. Absent: calf tenderness, edema Results - Labs CBC & BMP: 07/26/16 08:11 07/26/16 08:11 Lab Results: I have reviewed the past 24 hour labs Specialty Discharge - Follow Up or Referrals Follow up with: Aaron Davila MD [Physician] - 08/01/16 10:00 am Haresh Tinoco MD [Physician] - 2 Weeks (With a renal panel and a CBC)
--- NOTE | 2016-07-26 10:49 | Nephrology Progress Note ---
Nephrology - PN: Subj Interval history: Patient denies shortness of breath. Review of systems GI she denies nausea or vomiting Physical exam general the patient is chronically ill-appearing Assessment/plan 1. Acute renal failure on chronic renal failure-this patient's creatinine is around 4.7 mg/dL this is been stable over the past few days. She is thought to have diabetic nephropathy her previous baseline creatinine was around 3.5 mg/dL. 2. Diabetes mellitus 3. Anemia-this patient's hematocrit around 26% this is down from around 27% yesterday, this patient presented with severe anemia and a hematocrit reaching a avril of 21% 4. Hypertension we will continue present antihypertensives. 5. Urinary tract infection-this patient had Klebsiella pneumonia growing out of her urine she continues on Levaquin, she had a T-max of around 100.2 today. 6. Volume overload-this patient is asymptomatic she does have lower extremity edema, her weight is been stable the past 3 days we have been holding her Lasix due to her acutely rising creatinine earlier in her hospitalization. 7. Cardiomyopathy-this patient has moderate to severe tricuspid regurgitation and moderate pulmonary hypertension. 8. Hypoalbuminemia-this patient's albumin level is less than 2 she was given a 3 day course of IV albumin without any improvement in her kidney function, she has severe diabetic nephropathy with an albumin loss of around 8 g per day. The patient had been on lisinopril however this is currently being held due to her acutely increasing creatinine. Exam (PN)-Nephrology - Vital Signs Vital signs: Period Temp Pulse Resp BP Sys/Encarnacion Pulse Ox Last 24 Hr 98.9 F-100.6 F 84-94 17-22 142-179/66-82 91-99 - Lab 07/26/16 08:11 07/26/16 08:11 Most recent lab results Calcium 7.4 MG/DL (8.5-10.1) L 07/26/16 08:11 Phosphorus 5.8 MG/DL (2.5-4.9) H 07/21/16 05:33 Magnesium 1.8 MG/DL (1.8-2.4) 07/26/16 08:11 Assessment and Plan (1) Acute kidney injury superimposed on CKD Status: Acute Assessment and plan: This patient's creatinine has increased from around 2.5 mg/dL a few months ago, I think this is related to her severe anemia and hypoalbuminemia and decreased intravascular volume which was exacerbated by diuretics and GRACE inhibition. I am going to check a serum albumin level, I agree with holding her diuretics and GRACE inhibitor for right now. I am hesitant to give her any IV fluids at this time due to her volume overload, we may want to consider giving her some albumin for a few days. Current Visit: Yes (2) Anemia Status: Acute Assessment and plan: Patient has been transfused her hematocrit is now around 35% Current Visit: Yes (3) Menorrhagia Status: Acute Current Visit: Yes (4) Diabetes mellitus Status: Acute Current Visit: No (5) Hypertension Status: Acute Assessment and plan: This is controlled. Current Visit: No (6) Peripheral edema Status: Acute Current Visit: No Specialty Discharge - Follow Up or Referrals Follow up with: Aaron Davila MD [Physician] - 08/01/16 10:00 am Haresh Tinoco MD [Physician] - 2 Weeks (With a renal panel and a CBC)
[2016-07-26 11:06] LABS: Immuno Free Light Chain Kappa 13.71 MG/DL (0.33-1.94); Immuno Free Light Chain Lambda 4.41 MG/DL (0.57-2.63); Immuno Free Light Chain Ratio 3.11 MG/DL (0.26-1.65)
[2016-07-26 14:42] LABS: Glomerular Basement Membrane A < 0.2 U; Myeloperoxidase Antibody < 0.2 U
[2016-07-26] MEDS: ACETAMINOPHEN 325 MG TABLET PO PRN (16:46)
[2016-07-26] MEDS: ALUMINUM/MAGNES/SIMETH MAX STR 30 ML UDCUP PO PRN (17:32)
[2016-07-26] MEDS: LEVOFLOXACIN INJ 750 MG in PREMIX 1 EACH IV SCH (21:11)
[2016-07-26] MEDS: PRAVASTATIN 40 MG TABLET PO SCH (21:15)
[2016-07-27 06:06] LABS: Basophils % 0.3 % (0.0-0.8); Eosinophils # 0.4 10*3/uL (0.0-0.87); Eosinophils % 5.1 % (0.00-10.9); Hematocrit 25.5 VOL% (35.7-47.0); Hemoglobin 8.3 GM/DL (12.0-16.0); Immature Granulocytes % 0.7 %; Immature Granulocytes Absolute 0.05 #; Lymphocytes # 1.7 10*3/uL (1.4-4.0); Lymphocytes % 22.5 % (21.3-54.2); Mean Corpuscular HGB Conc 32.5 GM/DL (32-36); Mean Corpuscular Hemoglobin 30 PG (27-34); Mean Corpuscular Volume 91.7 FL (87-102); Mean Platelet Volume 10.6 FL (9.6-12.0); Monocytes # 0.6 10*3/uL (0.11-0.8); Monocytes % 7.7 % (1.7-12.7); Neutrophils # 4.9 10*3/uL (1.4-7.4); Neutrophils % 63.7 % (38.7-73.9); Platelet Count 226 T/CUMM (130-400); Red Blood Count 2.78 MC/CUMM (3.8-5.5); Red Cell Distribution Width 13.5 % (9.3-17.3); White Blood Count 7.7 T/CUMM (4-12)
[2016-07-27 06:38] LABS: Calcium 6.9 MG/DL (8.5-10.1); Magnesium 1.8 MG/DL (1.8-2.4); Potassium 4.3 MMOL/L (3.5-5.1)
[2016-07-27] MEDS ORDERED: FUROSEMIDE 20 MG/2 ML VIAL IV ONE (08:30)
[2016-07-27] MEDS: INSULIN LISPRO 100 UNIT/ML SUBCUT SCH ×4 (09:08→21:32)
[2016-07-27] MEDS: INSULIN GLARGINE 100 UNIT/ML SUBCUT SCH (09:09)
[2016-07-27] MEDS: GABAPENTIN 300 MG CAPSULE PO SCH ×3 (09:12→21:22)
[2016-07-27] MEDS: PANTOPRAZOLE 40 MG TABLET PO SCH (09:12)
[2016-07-27] MEDS: CARVEDILOL 25 MG TABLET PO SCH ×2 (09:12→21:23)
[2016-07-27] MEDS: CETIRIZINE 10 MG TABLET PO SCH (09:13)
--- NOTE | 2016-07-27 11:46 | Hospitalist Progress Note ---
Assessment and Plan - Time spent with patient Time spent with patient: Greater than 30 minutes (1) Fever Status: Acute Assessment and plan: Appears to be improving. Continue Levaquin for potential lung infection. Current Visit: Yes (2) Anemia Status: Acute Assessment and plan: Appears to be secondary to loss. Current Visit: Yes (3) Menorrhagia Status: Acute Assessment and plan: Evaluated by OBGYN. Current Visit: Yes (4) Acute kidney injury superimposed on CKD Status: Acute Assessment and plan: Creatinine has risen to 4.7. Etiology is not entirely clear. May require a kidney biopsy. Current Visit: Yes (5) DM2 (diabetes mellitus, type 2) Status: Acute Assessment and plan: Continue current management. Patient has diabetic nephropathy. Current Visit: No Qualifiers: Diabetes mellitus complication status: with kidney complications Diabetes mellitus complication detail: with nephropathy Hospitalist: Subjective Interval history: T-max is 99.4. Patient has no new complaints this morning. She states however that she has 2 pillow orthopnea. No overnight events. Exam - Constitutional Vitals: Period Temp Pulse Resp BP Sys/Encarnacion Pulse Ox Last 24 Hr 98.0 F-99.4 F 73-90 18-20 131-157/58-70 93-99 General appearance: no acute distress - Head Head exam: Present: normocephalic, atraumatic - Eye Eye exam: Present: EOMI Pupils: Present: JOLYNN - ENT ENT exam: Present: normal exam - Neck Neck exam: Present: normal inspection - Respiratory Respiratory exam: Present: clear to auscultation bilaterally. Absent: rhonchi, wheezes - Cardiovascular Cardiovascular exam: Present: regular rate and rhythm. Absent: gallop, rubs, systolic murmur - GI/Abdominal GI/Abdominal exam: Present: normal bowel sounds, soft. Absent: distended, firm , guarding, tenderness, rebound - Extremities Exam Extremities exam: Present: normal inspection. Absent: calf tenderness, edema Results - Labs CBC & BMP: 07/27/16 05:44 07/27/16 05:44 Lab Results: I have reviewed the past 24 hour labs Specialty Discharge - Follow Up or Referrals Follow up with: Aaron Davila MD [Physician] - 08/01/16 10:00 am Haresh Tinoco MD [Physician] - 2 Weeks (With a renal panel and a CBC)
--- NOTE | 2016-07-27 20:50 | Nephrology Progress Note ---
Nephrology - PN: Subj Interval history: The patient is sitting up visiting family. She has noticed increased swelling in her legs and shortness of breath. Serum creatinine is noted to be 4.9 today. Long discussion with patient about the progression of her renal disease. She voiced understanding. Also discussed with her about restarting diuretic therapy and that her kidney function continued to worsen she voiced understanding about about that. At this time will initiate Lasix 80 mg IV to 8 hours. Exam (PN)-Nephrology - Vital Signs Vital signs: Period Temp Pulse Resp BP Sys/Encarnacion Pulse Ox Last 24 Hr 98.6 F-99.4 F 73-88 17-20 131-159/58-85 93-94 - General Appearance General appearance: well-developed, well-nourished EENT: ATNC Neck: supple Respiratory: clear Cardiology: edema, regular rate, regular rhythm Gastrointestinal: normoactive bowel sounds, no tenderness Neurologic: CN 3-12 intact Musculoskeletal: no clubbing Psychiatric: mood/affect appropriate - Lab 07/27/16 05:44 07/27/16 05:44 Most recent lab results Calcium 6.9 MG/DL (8.5-10.1) L 07/27/16 05:44 Phosphorus 5.8 MG/DL (2.5-4.9) H 07/21/16 05:33 Magnesium 1.8 MG/DL (1.8-2.4) 07/27/16 05:44 Assessment and Plan (1) Diabetes mellitus Status: Chronic Current Visit: No Qualifiers: Diabetes mellitus type: type 2 Diabetes mellitus complication status: with kidney complications Chronic kidney disease stage: stage 4 (severe) (2) Acute renal failure (ARF) Status: Acute Current Visit: No (3) Peripheral edema Status: Chronic Assessment and plan: Lasix 80 mg IV every 8 hours Current Visit: No (4) Acute kidney injury superimposed on CKD Status: Acute Assessment and plan: Appears to be progressive renal dysfunction. Current Visit: Yes Specialty Discharge - Follow Up or Referrals Follow up with: Aaron Davila MD [Physician] - 08/01/16 10:00 am Haresh Tinoco MD [Physician] - 2 Weeks (With a renal panel and a CBC)
[2016-07-27] MEDS: FUROSEMIDE 40 MG/4 ML VIAL IV SCH (21:19)
[2016-07-27] MEDS: PRAVASTATIN 40 MG TABLET PO SCH (21:23)
[2016-07-28 04:56] LABS: Basophils % 0.3 % (0.0-0.8); Eosinophils # 0.4 10*3/uL (0.0-0.87); Eosinophils % 5.7 % (0.00-10.9); Hemoglobin 8.6 GM/DL (12.0-16.0); Immature Granulocytes % 0.6 %; Immature Granulocytes Absolute 0.04 #; Lymphocytes # 1.8 10*3/uL (1.4-4.0); Mean Corpuscular HGB Conc 30.7 GM/DL (32-36); Mean Corpuscular Hemoglobin 29 PG (27-34); Mean Corpuscular Volume 95.2 FL (87-102); Mean Platelet Volume 10.9 FL (9.6-12.0); Monocytes # 0.6 10*3/uL (0.11-0.8); Monocytes % 7.6 % (1.7-12.7); Neutrophils # 4.4 10*3/uL (1.4-7.4); Neutrophils % 60.8 % (38.7-73.9); Platelet Count 247 T/CUMM (130-400); Red Blood Count 2.94 MC/CUMM (3.8-5.5); Red Cell Distribution Width 13.3 % (9.3-17.3); White Blood Count 7.2 T/CUMM (4-12)
[2016-07-28] MEDS: FUROSEMIDE 40 MG/4 ML VIAL IV SCH ×3 (04:59→21:12)
[2016-07-28 05:23] LABS: Calcium 7.6 MG/DL (8.5-10.1); Osmolality,Calculated 316.1 MOS/KG (273-304); Potassium 4.3 MMOL/L (3.5-5.1)
[2016-07-28] MEDS: INSULIN LISPRO 100 UNIT/ML SUBCUT SCH ×4 (08:30→21:38)
--- NOTE | 2016-07-28 08:48 | XRay Report ---
Single view the chest. Indication: Shortness of breath. Comparison: July 24, 2016. The heart is enlarged. The pulmonary vasculature is prominent. The interstitial lung markings are prominent. There is worsening parenchymal opacity at the left lung base, likely representing a combination of infiltrate and pleural effusion. Osseous structures are stable. Impression: Interval worsening. PROCEDURE INTERPRETED AT [facility] DEPARTMENT OF RADIOLOGY Final Report Signed by: Dr. Angelina Armijo
[2016-07-28] MEDS: INSULIN GLARGINE 100 UNIT/ML SUBCUT SCH (09:21)
[2016-07-28] MEDS: CARVEDILOL 25 MG TABLET PO SCH ×2 (09:23→21:06)
[2016-07-28] MEDS: GABAPENTIN 300 MG CAPSULE PO SCH ×3 (09:23→21:07)
[2016-07-28] MEDS: PANTOPRAZOLE 40 MG TABLET PO SCH (09:23)
[2016-07-28] MEDS: CETIRIZINE 10 MG TABLET PO SCH (09:23)
--- NOTE | 2016-07-28 10:37 | Hospitalist Progress Note ---
Assessment and Plan - Time spent with patient Time spent with patient: Greater than 30 minutes (1) Fever Status: Acute Assessment and plan: Appears to be improving. Continue Levaquin for potential lung infection. Current Visit: Yes (2) Anemia Status: Acute Assessment and plan: Appears to be secondary to loss. Current Visit: Yes (3) Menorrhagia Status: Acute Assessment and plan: Evaluated by OBGYN. Current Visit: Yes (4) Acute kidney injury superimposed on CKD Status: Acute Assessment and plan: Creatinine has risen to 4.7. Etiology is not entirely clear. May require a kidney biopsy. Current Visit: Yes (5) DM2 (diabetes mellitus, type 2) Status: Acute Assessment and plan: Continue current management. Patient has diabetic nephropathy. Current Visit: No Qualifiers: Diabetes mellitus complication status: with kidney complications Diabetes mellitus complication detail: with nephropathy Hospitalist: Subjective Interval history: No complaints no overnight events. Exam - Constitutional Vitals: Period Temp Pulse Resp BP Sys/Encarnacion Pulse Ox Last 24 Hr 98.4 F-99.7 F 83-90 16-20 135-168/73-79 92-93 General appearance: no acute distress - Head Head exam: Present: normocephalic, atraumatic - Eye Eye exam: Present: EOMI Pupils: Present: JOLYNN - ENT ENT exam: Present: normal exam - Neck Neck exam: Present: normal inspection - Respiratory Respiratory exam: Present: clear to auscultation bilaterally. Absent: rhonchi, wheezes - Cardiovascular Cardiovascular exam: Present: regular rate and rhythm. Absent: gallop, rubs, systolic murmur - GI/Abdominal GI/Abdominal exam: Present: normal bowel sounds, soft. Absent: distended, firm , guarding, tenderness, rebound - Extremities Exam Extremities exam: Present: normal inspection. Absent: calf tenderness, edema Results - Labs CBC & BMP: 07/28/16 03:25 07/28/16 03:25 Lab Results: I have reviewed the past 24 hour labs Specialty Discharge - Follow Up or Referrals Follow up with: Aaron Davila MD [Physician] - 08/01/16 10:00 am Haresh Tinoco MD [Physician] - 2 Weeks (With a renal panel and a CBC)
--- NOTE | 2016-07-28 11:13 | Nephrology Progress Note ---
Nephrology - PN: Subj Interval history: Patient is resting comfortably. Started on IV Lasix on last night due to increased swelling. Appears that weight is down approximately 3-1/2 kg. Approximately 600 cc of urine output from the last shift. Creatinine noted to be 5.1 today. Continue with strict I's and O's. Daily BMP. Exam (PN)-Nephrology - Vital Signs Vital signs: Period Temp Pulse Resp BP Sys/Encarnacion Pulse Ox Last 24 Hr 98.4 F-99.7 F 83-90 16-20 135-168/73-79 92-93 - General Appearance General appearance: well-developed, well-nourished EENT: ATNC Neck: supple Respiratory: clear Cardiology: edema (2+), regular rate, regular rhythm Gastrointestinal: normoactive bowel sounds, no tenderness Integumentary: no rash Neurologic: alert and oriented x3 Musculoskeletal: no deformities, no clubbing Psychiatric: mood/affect appropriate - Lab 07/28/16 03:25 07/28/16 03:25 Most recent lab results Calcium 7.6 MG/DL (8.5-10.1) L 07/28/16 03:25 Phosphorus 5.8 MG/DL (2.5-4.9) H 07/21/16 05:33 Magnesium 1.8 MG/DL (1.8-2.4) 07/27/16 05:44 Assessment and Plan (1) Diabetes mellitus Status: Chronic Current Visit: No Qualifiers: Diabetes mellitus type: type 2 Diabetes mellitus complication status: with kidney complications Chronic kidney disease stage: stage 4 (severe) (2) Acute renal failure (ARF) Status: Acute Current Visit: No (3) Peripheral edema Status: Chronic Assessment and plan: Lasix 80 mg IV every 8 hours Current Visit: No (4) Acute kidney injury superimposed on CKD Status: Acute Assessment and plan: Appears to be progressive renal dysfunction. Current Visit: Yes Specialty Discharge - Follow Up or Referrals Follow up with: Aaron Davila MD [Physician] - 08/01/16 10:00 am Haresh Tinoco MD [Physician] - 2 Weeks (With a renal panel and a CBC)
[2016-07-28] MEDS: PRAVASTATIN 40 MG TABLET PO SCH (21:06)
[2016-07-28] MEDS: ACETAMINOPHEN 325 MG TABLET PO PRN (21:07)
[2016-07-28] MEDS: LEVOFLOXACIN INJ 750 MG in PREMIX 1 EACH IV SCH (21:30)
[2016-07-29] MEDS: FUROSEMIDE 40 MG/4 ML VIAL IV SCH (06:09)
[2016-07-29 06:26] LABS: Basophils % 0.4 % (0.0-0.8); Eosinophils # 0.4 10*3/uL (0.0-0.87); Eosinophils % 6.3 % (0.00-10.9); Hematocrit 27.4 VOL% (35.7-47.0); Hemoglobin 8.7 GM/DL (12.0-16.0); Immature Granulocytes % 0.9 %; Immature Granulocytes Absolute 0.06 #; Lymphocytes # 1.7 10*3/uL (1.4-4.0); Lymphocytes % 24.3 % (21.3-54.2); Mean Corpuscular HGB Conc 31.8 GM/DL (32-36); Mean Corpuscular Hemoglobin 30 PG (27-34); Mean Corpuscular Volume 94.2 FL (87-102); Mean Platelet Volume 10.3 FL (9.6-12.0); Monocytes # 0.5 10*3/uL (0.11-0.8); Monocytes % 7.2 % (1.7-12.7); Neutrophils # 4.1 10*3/uL (1.4-7.4); Neutrophils % 60.9 % (38.7-73.9); Platelet Count 245 T/CUMM (130-400); Red Blood Count 2.91 MC/CUMM (3.8-5.5); Red Cell Distribution Width 13.2 % (9.3-17.3); White Blood Count 6.8 T/CUMM (4-12)
[2016-07-29 06:54] LABS: Calcium 7.3 MG/DL (8.5-10.1); Osmolality,Calculated 318.1 MOS/KG (273-304); Potassium 4.3 MMOL/L (3.5-5.1)
--- NOTE | 2016-07-29 07:15 | Oncology Progress Note ---
Oncology Subjective PN Interval history: Both kappa and lambda free light chains are elevated. I think this is likely to be due to renal failure. Neither one is elevated much. Exam - Constitutional Vitals: Period Temp Pulse Resp BP Sys/Encarnacion Pulse Ox Last 24 Hr 98.4 F-99.4 F 84-89 20-20 143-175/68-79 93-95 Results - Labs CBC & BMP: 07/29/16 05:53 07/29/16 05:53 Specialty Discharge - Follow Up or Referrals Follow up with: Aaron Davila MD [Physician] - 08/01/16 10:00 am Haresh Tinoco MD [Physician] - 2 Weeks (With a renal panel and a CBC)
[2016-07-29 08:28] VITALS: BP 184/81
--- NOTE | 2016-07-29 08:51 | Nephrology Progress Note ---
Nephrology - PN: Subj Interval history: Patient had some shortness of breath this weekend. She has been restarted on Lasix 80 mg IV 3 times daily. Review of systems GI she denies nausea or vomiting. Physical exam general the patient in no acute distress she is not wearing oxygen presently, she has 2+ pretibial edema Assessment/plan 1. Acute renal failure on chronic renal failure-this patient's creatinine has been slowly increasing I feel like this is diabetic nephropathy, I do not feel any further workup is indicated at this time we will continue to monitor her for increases in creatinine. I do not feel she needs to be started on dialysis at this time. 2. Volume overload-with her shortness of breath symptoms I agree with restarting Lasix I would send her out on 160 milligrams twice daily as discussed with Dr. Cole. 3. Hypertension we will continue her present antihypertensives Exam (PN)-Nephrology - Vital Signs Vital signs: Period Temp Pulse Resp BP Sys/Encarnacion Pulse Ox Last 24 Hr 98.2 F-100.3 F 84-92 18-20 145-184/68-86 92-99 - Lab 07/29/16 05:53 07/29/16 05:53 Most recent lab results Calcium 7.3 MG/DL (8.5-10.1) L 07/29/16 05:53 Phosphorus 5.8 MG/DL (2.5-4.9) H 07/21/16 05:33 Magnesium 1.8 MG/DL (1.8-2.4) 07/27/16 05:44 Assessment and Plan (1) Acute kidney injury superimposed on CKD Status: Acute Assessment and plan: This patient's creatinine has increased from around 2.5 mg/dL a few months ago, I think this is related to her severe anemia and hypoalbuminemia and decreased intravascular volume which was exacerbated by diuretics and GRACE inhibition. I am going to check a serum albumin level, I agree with holding her diuretics and GRACE inhibitor for right now. I am hesitant to give her any IV fluids at this time due to her volume overload, we may want to consider giving her some albumin for a few days. Current Visit: Yes (2) Anemia Status: Acute Assessment and plan: Patient has been transfused her hematocrit is now around 35% Current Visit: Yes (3) Menorrhagia Status: Acute Current Visit: Yes (4) Diabetes mellitus Status: Chronic Current Visit: No Qualifiers: Diabetes mellitus type: type 2 Diabetes mellitus complication status: with kidney complications Chronic kidney disease stage: stage 4 (severe) (5) Hypertension Status: Acute Assessment and plan: This is controlled. Current Visit: No (6) Peripheral edema Status: Chronic Current Visit: No Specialty Discharge - Follow Up or Referrals Follow up with: Aaron Davila MD [Physician] - 08/01/16 10:00 am Haresh Tinoco MD [Physician] - 2 Weeks (With a renal panel and a CBC)
[2016-07-29] MEDS: INSULIN LISPRO 100 UNIT/ML SUBCUT SCH ×2 (09:31→11:00)
[2016-07-29] MEDS: INSULIN GLARGINE 100 UNIT/ML SUBCUT SCH (09:31)
[2016-07-29] MEDS: CARVEDILOL 25 MG TABLET PO SCH (09:32)
[2016-07-29] MEDS: PANTOPRAZOLE 40 MG TABLET PO SCH (09:32)
[2016-07-29] MEDS: CETIRIZINE 10 MG TABLET PO SCH (09:32)
[2016-07-29] MEDS: GABAPENTIN 300 MG CAPSULE PO SCH (09:32)
--- NOTE | 2016-07-29 10:20 | Discharge Summary ---
Hospital Course - Hospital Course Hospital Course: Mrs. Argueta presented as referral from primary care physician's office after having been found to have anemia. Patient describes a history of significant menorrhagia and was found to have a hemoglobin level of 8.4 and admission this was followed through serial examination and dropped to 7.1 in which case patient received 3 units of packed red blood cells then to 7.6 where the patient received an additional 2 units of packed red blood cells. She was seen in consultation by [facility]ILDR[employer] who administered a Depo shot and patient will follow-up as an outpatient with him. During hospital stay she developed a temperature which she was initially placed on Rocephin for potential UTI however and further investigation was found to have an pulmonary infection. She was switched to Levaquin and her temperature steadily declined and improved by discharge. She had no symptoms of pneumonia. With regard to the patient's kidney function initially she presented with a creatinine of 3.7 however this did rise to 3.9 where her diuretics were discontinued. Creatinine was noted to continue to rise to about 5 and her diuretics were initiated. Her acute kidney injury was felt to be secondary to her anemia and diabetic nephropathy progression of disease. She will continue her diuretics at the same dose she presented and will follow-up as an outpatient with nephrology. By discharge she had met maximum benefit of hospitalization. - Time spent with patient Time with patient DS: Greater than 30 minutes Diagnosis - Discharge Diagnosis (1) Fever Status: Acute (2) Anemia Status: Acute (3) Menorrhagia Status: Acute (4) Acute kidney injury superimposed on CKD Status: Acute (5) DM2 (diabetes mellitus, type 2) Status: Acute Specialty Discharge - Follow Up or Referrals Follow up with: Aaron Davila MD [Physician] - 08/01/16 10:00 am Haresh Tinoco MD [Physician] - 08/13/16 9:00 am (With a renal panel and a CBC) Discharge Plan - Discharge Data Disposition: Disch To Home/Self Care Condition at Discharge: Stable Discharge Diet: advance to your usual diet Hygiene: no restrictions - Discharge Medications New Levofloxacin Tab [Levaquin Tab] 250 mg PO DAILY #4 tablet Continue RX: Pravastatin [Pravachol] 40 mg PO BEDTIME RX: hydrALAZINE TAB [Apresoline Tab] 25 mg PO BID RX: Gabapentin 300 mg PO TID RX: Carvedilol [Coreg] 25 mg PO BID #60 tablet RX: Furosemide Tab [Lasix Tab] 160 mg PO BID DIURETIC #120 tablet RX: Insulin Glargine [Lantus] 30 unit SUBCUT QAM Discontinued Lisinopril/Hydrochlorothiazide [Lisinopril-Hctz 20-25 mg Tab] 1 each PO DAILY - Follow Up or Referral Follow Up: Aaron Davila MD [Physician] - 08/01/16 10:00 am Haresh Tinoco MD [Physician] - 08/13/16 9:00 am (With a renal panel and a CBC) - Forms/Instructions Exam - Constitutional Vitals: Period Temp Pulse Resp BP Sys/Encarnacion Pulse Ox Last 24 Hr 98.2 F-100.3 F 84-92 18-20 145-184/68-86 92-99 General appearance: no acute distress, over weight - Head Head exam: Present: normal inspection, normocephalic, atraumatic - Eye Eye exam: Present: EOMI Pupils: Present: JOLYNN - ENT ENT exam: Present: normal exam - Neck Neck exam: Present: normal inspection - Respiratory Respiratory exam: Present: clear to auscultation bilaterally - Cardiovascular Cardiovascular exam: Present: regular rate and rhythm - GI/Abdominal GI/Abdominal exam: Present: normal bowel sounds. Absent: ascites, distended - Extremities Exam Extremities exam: Present: normal inspection Discharge Results Procedures and tests throughout hospitalization: Pending Orders 07/30/16 04:00 BMP [Basic Metabolic Panel] IN AM Comp Blood Count Auto Diff IN AM Labs on day of discharge: Labs from last 24 hours 07/29/16 07/29/16 07/29/16 07:25 05:53 05:53 WBC 6.8 RBC 2.91 L Hgb 8.7 L Hct 27.4 L MCV 94.2 MCH 30 MCHC 31.8 L RDW 13.2 Plt Count 245 MPV 10.3 Neut % (Auto) 60.9 Lymph % (Auto) 24.3 Harnett % (Auto) 7.2 Eos % (Auto) 6.3 Baso % (Auto) 0.4 Neut # (Auto) 4.1 Lymph # (Auto) 1.7 Harnett # (Auto) 0.5 Eos # (Auto) 0.4 Baso # (Auto) 0.0 Immature Gran % 0.9 Nucleated RBC % 0.0 Immature Gran # 0.06 Nucleated RBCs # 0.00 Sodium 149 H Potassium 4.3 Chloride 115 H Carbon Dioxide 25 Anion Gap 13.3 BUN 63 H Creatinine 5.20 H GFR Calculation 12 BUN/Creatinine Ratio 12.00 Glucose 182 H POC Glucose 174 H Calculated Osmolality 318.1 H Calcium 7.3 L 07/28/16 07/28/16 07/28/16 21:33 17:11 11:24 WBC RBC Hgb Hct MCV MCH MCHC RDW Plt Count MPV Neut % (Auto) Lymph % (Auto) Harnett % (Auto) Eos % (Auto) Baso % (Auto) Neut # (Auto) Lymph # (Auto) Harnett # (Auto) Eos # (Auto) Baso # (Auto) Immature Gran % Nucleated RBC % Immature Gran # Nucleated RBCs # Sodium Potassium Chloride Carbon Dioxide Anion Gap BUN Creatinine GFR Calculation BUN/Creatinine Ratio Glucose POC Glucose 254 H 135 H 199 H Calculated Osmolality Calcium DS: Provider Date of admission: 07/17/16 17:48 Primary care physician: . No PCP Attending physician on admission: Mayra Brown MD Consults: 07/17/16 19:34 Consult to Physician [CONS] Routine Comment: heavy menstrual cycles; anemia Consulting Provider: Aaron Davila 07/17/16 20:03 Consult to Pharmacy [CONS] Routine Reason for Pharmacy Consult: Adjust Meds Renal Funct 07/20/16 08:08 Consult to Physician [CONS] Routine Comment: YOLIE Consulting Provider: Haresh Tinoco Consult to Specialist Group: Nephrology When should Consulting Provider be notified: Now Person Notified: Earnest Date Notified: 07/20/16 Time Notified: 09:08 07/23/16 11:32 Consult to Physician [CONS] Routine Comment: eval for hysterectomy Consulting Provider: Aaron Davila 07/24/16 08:37 Consult to Physician [CONS] Routine Comment: anemia, with elevated haptoglobin and LDH Consulting Provider: Haresh Esteves Consult to Specialist Group: Hematology When should Consulting Provider be notified: Now Person Notified: ZULAY Date Notified: 07/24/16 Time Notified: 08:57 Discharging clinician: Mayra Brown MD Expected date of discharge: 07/29/16
== END 2016-07-29 11:30 | disposition home or self-care (01) | DRG 811 ==
LOC: N.ED 15:02 → N.EDINP 17:48 → N.2E 18:24
PROVIDERS: ADMIT Internal Medicine; ATTEND Internal Medicine

== ENCOUNTER 2016-09-05 12:58 | Inpatient (IN) ==
[~2016-09-05 12:58] MED LIST: LIDOCAINE 2% 5 ML VIAL ONE; PROPOFOL 200 MG/20 ML VIAL IV ONE
[2016-09-05] MEDS ORDERED: hydrALAZINE 20 MG/1 ML VIAL IV STA (13:38)
[2016-09-05] MEDS ORDERED: SODIUM CHLORIDE 0.9% 500 ML IV STA (13:38)
[2016-09-05] MEDS ORDERED: ONDANSETRON 4 MG/2 ML VIAL IV STA (13:38)
[2016-09-05] MEDS ORDERED: MORPHINE 2 MG/1 ML SYRINGE IV STA (13:38)
[2016-09-05] MEDS ORDERED: PANTOPRAZOLE 40 MG VIAL IV STA (13:38)
[2016-09-05 13:51] LABS: Basophils % 0.4 % (0.0-0.8); Eosinophils # 0.2 10*3/uL (0.0-0.87); Eosinophils % 2.4 % (0.00-10.9); Hematocrit 30.1 VOL% (35.7-47.0); Immature Granulocytes % 0.4 %; Immature Granulocytes Absolute 0.03 #; Lymphocytes # 2.2 10*3/uL (1.4-4.0); Lymphocytes % 29.9 % (21.3-54.2); Mean Corpuscular HGB Conc 33.2 GM/DL (32-36); Mean Corpuscular Hemoglobin 29 PG (27-34); Mean Corpuscular Volume 88.5 FL (87-102); Mean Platelet Volume 10.2 FL (9.6-12.0); Monocytes # 0.3 10*3/uL (0.11-0.8); Monocytes % 3.9 % (1.7-12.7); Neutrophils # 4.7 10*3/uL (1.4-7.4); Platelet Count 294 T/CUMM (130-400); White Blood Count 7.5 T/CUMM (4-12)
[2016-09-05 14:04] LABS: Alanine Aminotransferase 18 U/L (13-56); Albumin 1.1 G/DL (3.4-5.0); Alkaline Phosphatase 66 U/L (45-117); Amylase 43 U/L (25-115); Aspartate Amino Transferase 22 U/L (0-37); Bilirubin,Total < 0.39 MG/DL (0.2-1.0); Blood Urea Nitrogen 46 MG/DL (7-18); Calcium 6.6 MG/DL (8.5-10.1); Glucose 109 MG/DL (74-106); Magnesium 1.5 MG/DL (1.8-2.4); Osmolality,Calculated 295.1 MOS/KG (273-304); Potassium 3.1 MMOL/L (3.5-5.1); Sodium 142 MMOL/L (136-145); Total Protein 4.8 G/DL (6.4-8.3); Troponin I Only 0.037 NG/ML (0.00-0.045)
[2016-09-05] MEDS ORDERED: PANTOPRAZOLE 40 MG VIAL IV ONE (14:17)
[2016-09-05] MEDS ORDERED: hydrALAZINE 20 MG/1 ML VIAL ONE (14:17)
[2016-09-05] MEDS ORDERED: ONDANSETRON 4 MG/2 ML VIAL ONE (14:17)
[2016-09-05] MEDS ORDERED: MORPHINE 2 MG/1 ML SYRINGE ONE (14:17)
--- NOTE | 2016-09-05 14:43 | XRay Report ---
Referring Physician: Jann Coffman Exam: XR chest 1V Date: September 05, 2016 at 1:50 PM Reason: Generalized abdominal pain Comparison: Chest one view portable July 28, 2016 Findings: The cardiac silhouette is normal in size. No focal consolidation, pneumothorax or pleural effusion is identified. No acute osseous process is seen. Impression: No acute cardiopulmonary process is identified. PROCEDURE INTERPRETED AT [facility] DEPARTMENT OF RADIOLOGY Final Report Signed by: Dr. Mukul Bo
--- NOTE | 2016-09-05 14:45 | XRay Report ---
Referring Physician: Jann Coffman Exam: XR abdomen 2V Date: September 05, 2016 at 1:50 PM Reason: Generalized abdominal pain Comparison: Abdomen one view December 22, 2014 Findings: There is no evidence of bowel obstruction or free air. However, there are a few air-fluid levels at the small bowel within the mid and left abdomen. This could reflect enteritis or mild ileus. The renal shadows are largely obscured, but no definite renal calculi are identified. There are several pelvic phleboliths. No acute osseous process is seen. Impression: There is no evidence of bowel obstruction. However, there are air-fluid levels at some loops of small bowel within the mid and left abdomen. This could reflect enteritis or mild ileus. PROCEDURE INTERPRETED AT [facility] DEPARTMENT OF RADIOLOGY Final Report Signed by: Dr. Mukul Bo
[2016-09-05 14:58] LABS: Apearance,Urine CLOUDY (Clear); Bacteria,Urine Many /HPF (Few); Bilirubin,Urine Negative (Negative); Blood, Urine Small mg/dL (Negative); Glucose,Urine (UA) 150 mg/dL (Negative); Ketones,Urine Negative (Negative); Nitrite,Urine Negative (Negative); Protein,Urine >=500 MG/DL; RBC,Urine 9 /HPF (0-4); Squamous Epithelial Cell,Urine Occasional /HPF (0-10); Urine Color Yellow (Yellow); Urine Specific Gravity 1.011 (1.001-1.035); Urine Urobilinogen < 2.0 EU/DL (0.2-1.0)
--- NOTE | 2016-09-05 15:27 | EKG Report ---
Stationary ECG Study [facility] Test Date: 09/05/2016 3:24:40 PM Pat Name: CHAGO LEIJA Department: Room: Gender: [employer]: : 1975 Requested by: Jann Christina Order Number: [id number] Reading MD: MATTHEW RUSS Intervals [place] Rate: 80 P: 42 ME: 167 QRS: -2 QRSD: 81 T: 122 QT: 384 QTc: 420 Interpretive Statements SINUS RHYTHM POOR R-WAVE PROGRESSION MODERATE VOLTAGE CRITERIA FOR LVH, CONSIDER NORMAL VARIANT NONSPECIFIC T-WAVE ABNORMALITY Electronically Signed On 09-06-16 18:59:29 CDT by MATTHEW RUSS [email or web address]
[2016-09-05] MEDS ORDERED: DEXTROSE 50% 25 GM/50 ML VIAL IV ONE (16:33)
[2016-09-05] MEDS ORDERED: DEXTROSE 50% 25 GM/50 ML VIAL IV STA (16:41)
[2016-09-05] MEDS ORDERED: POTASSIUM CHLORIDE 20 MEQ TABLET PO STA (16:43)
[2016-09-05] MEDS ORDERED: MAGNESIUM SULF RIDER 2 GM in PREMIX 1 EACH IV STA (16:43)
--- NOTE | 2016-09-05 16:49 | Emergency Department Note ---
Lynne Edwards Hilary, am scribing for, and in the presence of, Jann Coffman MD 13:37. Meghna Edwards Charles R, MD, personally performed the services described in this documentation, ascribed by Migdalia Batista in my presence, and it is both accurate and complete [id number] . Arrival - Arrival Chief Complaint: Nausea/Vomiting/Diarrhea Stated Complaint: kidney problems ED Nursing Triage Note: n/v/d for four days with abd cramping. pt has a hx of renal failure and is getting ready to have graft placed. was told by dr hernandez to come to er. Mode of Arrival: Ambulatory Limitations: No Limitations Source: Patient, RN Notes Reviewed Time Seen by Provider: 09/05/16 13:24 - History of Present Illness HPI Narrative: Pt is a 41 y/o black female presenting to the ED with c/o N/V/D which onset four days with abdominal cramping. Pt confirms nausea, diarrhea, vomiting and abdominal cramping but denies blood in either vomit or stool. Tt has a hx of renal failure and is getting ready to have a graft placed. She was told by Dr Hernandez to come to ED. No other complaints or problems stated. Onset (ago): day(s) Consistency: constant Severity: moderate Severity scale (1-10): 3 Quality: cramping Date of Last Menstrual Period: jun 2016 on depo Allergies/Adverse Reactions: Allergies Allergy/AdvReac Type Severity Reaction Status Date / Time No Known Allergies Allergy Verified 03/22/16 03:54 Home Medications: Home Medications Medication Instructions Recorded Confirmed Type Pravastatin [Pravachol] 40 mg PO BEDTIME 12/21/14 07/17/16 History Gabapentin 300 mg PO TID 03/05/16 07/17/16 History hydrALAZINE TAB [Apresoline Tab] 25 mg PO BID 03/05/16 07/17/16 History Carvedilol [Coreg] 25 mg PO BID #60 tablet 03/09/16 07/17/16 Rx Furosemide Tab [Lasix Tab] 160 mg PO BID DIURETIC #120 tablet 03/27/16 07/17/16 Rx Insulin Glargine [Lantus] 30 unit SUBCUT QAM 07/17/16 07/17/16 History Levofloxacin Tab [Levaquin Tab] 250 mg PO DAILY #4 tablet 07/29/16 Rx Review of System - Review of System 12 point system: reviewed and no additional remarkable complaints except as stated - Review of System Constitutional: Absent: fever Respiratory: Absent: cough Cardiovascular: Absent: chest pain Gastrointestinal: Present: abdominal pain, nausea, vomiting, diarrhea. Absent: hematemesis, hematochezia Genitourinary female: Absent: dysuria Medical,Surgical,& Family Hx - Medical History Cardio: History of: Hypertension No history of: Aneurysm, Cardiac Dysrhythmia, Cerebrovascular Disease, Congenital Heart Disease, CHF, CAD, [place], Pacemaker, PVD, Valvular Heart Disease, Cardiovascular Problems Psychological: History of: Anxiety Disorders, Depression No history of: ADHD, Behavior Problems, Bipolar Disorder, Previous Suicide Attempt, Psychiatric/Substance Abuse Tx, Schizophrenia, Violent Behavior, Psychiatric Problems Neurology: No history of: Brain Aneurysm, Cerebral Hemorrhage, Cerebrovascular Accident , Cerebral Palsy, Dementia, Migraine, Multiple Sclerosis, Parkinson's Disease, Peripheral Neuropathy, Seizures, TIA, Vertigo, Neurologocal Cancer HEENT: No history of: Ear Problem, Eye Problem, Dental Problems, Glaucoma, Oral Cancer, HEENT Problems Endocrine: History of: Diabetes Mellitus (IDDM), Dyslipidemia No history of: Adrenal Disease, Diabetes Mellitus (NIDDM), Thyroid Disorder, Endocrine Cancer, Endocrine Problems Rheumatology: No history of;: Fibromyalgia, Gout, Myasthenia Gravis, Psoriasis, Rheumatoid Arthritis, Sjogrens, Systemic Lupus Erythematosus, Rheumatological Problems Respiratory: No history of: Asthma, Bronchitis, COPD, Intubation, Obstructive Sleep Apnea , Pulmonary Embolism, Pulmonary Hypertension, Pneumonia, Lung Cancer, Respiratory Problems Renal: No history of: Renal (Kidney) Cancer, Dialysis, Renal Failure, Renal Problems Genitourinary: No history of: Bladder Problem, Kidney Stones, Recurring Urinary Tract Infections, Genitourinary Cancer, Problems Gastrointestinal: No history of: Bowel Obstruction, Clostridium Difficile, Crohn's Disease, Diverticulitis/ Diverticulosis, Esophageal Varices, GERD, Gastrointestinal Bleed , Hemorrhoids, Hematochezia, Hepatitis, Liver Problems, Pancreatitis, Polyps, Ulcerative Colitis, Gastrointestinal Cancer, GI Problems Musculoskeletal: No history of: Amputation, Back/Neck Problems, Degenerative Disk Disease, Herniated Disk, Osteoporosis, Musculoskeletal Cancer, Musculoskeletal Problems Hematology: No history of: Anemia, Blood Transfusion Reaction, Bleeding Problems, Clotting Problems, Sickle Cell Disease, Hematologic Cancer, Blood Disorders Reproductive: No history of: Abnormal Pap Smear, Breast Cancer, Endometriosis, Ectopic , Ovarian Cysts, Complication, Sexually Transmitted Disorders , Reproductive Cancer, Reproductive Problems Other: No history of: Anesthesia Reactions, Anaphylaxis, Cancer, Eczema, HIV, Malignant Hyperthermia, MRSA, Vancomycin-Resistant Enterococci, Skin Problems, Miscellaneous Medical Problems - Surgical History Cardiac Surgeries: Patient Denies: Femoral-Popliteal Bypass Graft, Cardiac Catheterization, Cardiac Surgery, Carotid Endarterectomy, Internal Defibrillator, Vascular Access Devices Thoracic Surgeries: Patient denies;: Kidney (Renal Surgery), Lithotripsy, Nephrectomy, Organ Transplant, Lobectomy Neurologic Surgeries: Patient denies: Brain Aneurysm, Cerebral Hemorrhage, Neurologic Surgery HEENT Surgeries: Patient denies: Carotid Endarterectomy, Eye Surgery, Thyroid Surgery, Tonsilectomy & Adenoidectomy Abdominal Surgeries: Patient denies: Abdominal Surgery, Appendectomy, Cholecystectomy, Colonoscopy , Gastric Bypass Surgery, EGD, Hernia Repair, Splenectomy Reproductive Surgeries: Surgical HX of;: Section, Tubal Ligation Patient denies;: Breast Surgery, Cystoscopy, Dilation and Curettage, Genitourinary Surgery, Gynecologic Surgery, Hysterectomy Orthopedic Surgeries: Patient denies;: Implanted Devices, Orthopedic Surgery, Spinal Surgery, Total Hip Replacement, Total Knee Replacement - Family History Family History: Reports;: Family Diabetes (father mother sister), Family Heart Disease (father), Family Hypertension (father), Family Stroke (mother) Denies;: Family Anesthesia Reaction, Family Cancer (neice kidney ca), Family Psychiatric Problems - Social History Smoking Status: Former smoker Exam Vital Signs: Vital Signs Temperature 98.9 F 09/05/16 13:03 Pulse Rate 83 09/05/16 14:45 Respiratory Rate 18 09/05/16 14:45 Blood Pressure 197/98 09/05/16 14:45 O2 Sat by Pulse Oximetry 99 09/05/16 14:45 - General General appearance: alert, in no apparent distress - Head Head exam: Present: atraumatic, normocephalic - Eye Eye exam: Present: normal appearance, PERRL, EOMI - ENT ENT exam: Present: mucous membranes moist, TM's normal bilaterally. Absent: mucous membranes dry - Neck Neck exam: Present: full ROM, trachea midline. Absent: tenderness - Chest Chest inspection: Present: symmetric chest wall rise. Absent: tenderness - Respiratory Respiratory exam: Present: rales (bilaterally) - Cardiovascular Cardiovascular exam: Present: regular rate, normal rhythm, murmur (3/6 systolic ejection murmur) - Abdominal Exam Abdominal exam: Present: soft, tenderness (LLQ tenderness), guarding, hypoactive bowel sounds. Absent: distention - Extremities Exam Extremities exam: Present: full ROM, pedal edema (2+ edema). Absent: tenderness - Back Exam Back exam: Present: full ROM. Absent: tenderness - Neurological Exam Neurological exam: Present: alert, oriented X3, CN II-XII intact. Absent: motor sensory deficit - Psychiatric Psychiatric exam: Present: normal affect, normal mood - Skin Skin exam: Present: warm, dry, intact, normal color. Absent: rash Course - Consultations Consultation #1: Hospitalist will admit patient Time: 16:45 Results - Labs CBC & BMP: 09/05/16 13:34 09/05/16 13:34 Lab Results: I have reviewed the patients labs Labs: Laboratory Tests 09/05/16 09/05/16 13:34 13:34 WBC 7.5 RBC 3.40 L Hgb 10.0 L Hct 30.1 L Sodium 142 Potassium 3.1 L Chloride 110 H Carbon Dioxide 23 BUN 46 H Creatinine 4.70 H Glucose 109 H Calcium 6.6 L Magnesium 1.5 L Total Protein 4.8 L Albumin 1.1 L Globulin 3.7 H Albumin/Globulin Ratio 0.2 L Laboratory Tests 09/05/16 14:36 Urine Color Yellow Urine Appearance Cloudy Urine Urobilinogen < 2.0 H - Diagnostic Findings Procedure: Abdominal x-ray: report reviewed by me (There is no evidence of bowel obstruction. However, there are air-fluid levels at some loops of the small bowel within the mid and left abdomen. This could reflect enteritis or mild ileus. ), Chest x-ray: report reviewed by me (No acute cardiopulmonary process is identified) Disposition Clinical Impression: Diarrhea, Uncontrolled hypertension, Renal insufficiency, Gastroenteritis, Hypoglycemia, DM2 (diabetes mellitus, type 2), Hypomagnesemia, Hypokalemia Case discussed with: patient, patient's family Disposition: Still a Patient Condition: Stable Time of Disposition: 16:46
[2016-09-05] MEDS ORDERED: POTASSIUM CHLORIDE 20 MEQ TABLET PO ONE (16:51)
[2016-09-05] MEDS ORDERED: MAGNESIUM SULF RIDER 50 ML IV ONE (16:51)
--- NOTE | 2016-09-05 17:25 | Hospitalist History & Physical ---
<Bridget Swenson - Last Filed: 09/05/16 17:19> Assessment and Plan - Time spent with patient Time spent with patient: Greater than 30 minutes (1) Acute renal failure superimposed on chronic kidney disease Status: Acute Assessment and plan: Ms. Kerns is a 41-year-old -[place]izen [place] female with history of hypertension, diabetes, end-stage renal disease, and depression admitted by the hospitalist service today with nausea, vomiting, and diarrhea with abdominal cramping for the last 4 days. Patient will be admitted and started on some gentle rehydration. Dr. Hernandez from nephrology will be consulted. Patient's creatinine is 4.7 which is actually lower than her hospital admission in July. Unsure of her nausea vomiting and diarrhea are from her acute renal failure or if she has a gastroenteritis. We will go ahead and hold her n.p.o. after midnight tonight just in case she needs dialysis catheter placed in the morning. We will go ahead and replace her magnesium and her potassium. We will put her on sliding scale insulin for her diabetes and restart her hypertension medicines from home. Patient will be seen and examined by Dr. Cartagena and further recommendations to follow. Current Visit: Yes (2) Diarrhea Status: Acute Current Visit: Yes (3) Diabetes mellitus Status: Chronic Current Visit: No Qualifiers: Diabetes mellitus type: type 2 Diabetes mellitus complication status: with kidney complications Chronic kidney disease stage: stage 4 (severe) (4) Anemia of chronic disease Status: Acute Current Visit: No (5) Hypomagnesemia Status: Acute Current Visit: Yes (6) Hypokalemia Status: Acute Current Visit: Yes History of Present Illness Chief complaint: N/V/D History of present illness: Ms. Kerns is a 41 year old female w history of dm, htn, ckd, depression and hyperlipidemia presenting to ED w 4 day history of nausea, vomiting, and diarrhea w abdominal cramping. pt states she has been trying to drink pedialyte to stay hydrated and she has been able to keep her meds down today. pt called dr hernandez's office this am and he told her to go to ED for evaluation. pt states she is supposed to see one of the surgeons soon to get set up for fistula or graft placement. pt denies headache, dysphagia, sob, cp, constipation, or leg pain. she is also having increased LE swelling. Patient's chest x-ray is okay but her abdominal x-ray showing possible gastroenteritis versus mild ileus. Her potassium is low along with her magnesium. Her creatinine is 4.7 which is actually lower than her admission in July. pts case was discussed w dr henson the ed physician and dr cartagena the hospitalist and it was agreed pt would be admitted for further evaluation and treatment. Home Medications Medication Instructions Recorded Confirmed Type Pravastatin [Pravachol] 40 mg PO BEDTIME 12/21/14 07/17/16 History Gabapentin 300 mg PO TID 03/05/16 07/17/16 History hydrALAZINE TAB [Apresoline Tab] 25 mg PO BID 03/05/16 07/17/16 History Carvedilol [Coreg] 25 mg PO BID #60 tablet 03/09/16 07/17/16 Rx Furosemide Tab [Lasix Tab] 160 mg PO BID DIURETIC #120 tablet 03/27/16 07/17/16 Rx Insulin Glargine [Lantus] 30 unit SUBCUT QAM 07/17/16 07/17/16 History Levofloxacin Tab [Levaquin Tab] 250 mg PO DAILY #4 tablet 07/29/16 Rx Allergies Allergy/AdvReac Type Severity Reaction Status Date / Time No Known Allergies Allergy Verified 03/22/16 03:54 Medical,Surgical,& Family Hx - Medical History Cardio: History of: Hypertension No history of: Aneurysm, Cardiac Dysrhythmia, Cerebrovascular Disease, Congenital Heart Disease, CHF, CAD, [place], Pacemaker, PVD, Valvular Heart Disease, Cardiovascular Problems Psychological: History of: Anxiety Disorders, Depression No history of: ADHD, Behavior Problems, Bipolar Disorder, Previous Suicide Attempt, Psychiatric/Substance Abuse Tx, Schizophrenia, Violent Behavior, Psychiatric Problems Neurology: No history of: Brain Aneurysm, Cerebral Hemorrhage, Cerebrovascular Accident , Cerebral Palsy, Dementia, Migraine, Multiple Sclerosis, Parkinson's Disease, Peripheral Neuropathy, Seizures, TIA, Vertigo, Neurologocal Cancer HEENT: No history of: Ear Problem, Eye Problem, Dental Problems, Glaucoma, Oral Cancer, HEENT Problems Endocrine: History of: Diabetes Mellitus (IDDM), Dyslipidemia No history of: Adrenal Disease, Diabetes Mellitus (NIDDM), Thyroid Disorder, Endocrine Cancer, Endocrine Problems Rheumatology: No history of;: Fibromyalgia, Gout, Myasthenia Gravis, Psoriasis, Rheumatoid Arthritis, Sjogrens, Systemic Lupus Erythematosus, Rheumatological Problems Respiratory: No history of: Asthma, Bronchitis, COPD, Intubation, Obstructive Sleep Apnea , Pulmonary Embolism, Pulmonary Hypertension, Pneumonia, Lung Cancer, Respiratory Problems Renal: No history of: Renal (Kidney) Cancer, Dialysis, Renal Failure, Renal Problems Genitourinary: No history of: Bladder Problem, Kidney Stones, Recurring Urinary Tract Infections, Genitourinary Cancer, Problems Gastrointestinal: No history of: Bowel Obstruction, Clostridium Difficile, Crohn's Disease, Diverticulitis/ Diverticulosis, Esophageal Varices, GERD, Gastrointestinal Bleed , Hemorrhoids, Hematochezia, Hepatitis, Liver Problems, Pancreatitis, Polyps, Ulcerative Colitis, Gastrointestinal Cancer, GI Problems Musculoskeletal: No history of: Amputation, Back/Neck Problems, Degenerative Disk Disease, Herniated Disk, Osteoporosis, Musculoskeletal Cancer, Musculoskeletal Problems Hematology: No history of: Anemia, Blood Transfusion Reaction, Bleeding Problems, Clotting Problems, Sickle Cell Disease, Hematologic Cancer, Blood Disorders Reproductive: No history of: Abnormal Pap Smear, Breast Cancer, Endometriosis, Ectopic , Ovarian Cysts, Complication, Sexually Transmitted Disorders , Reproductive Cancer, Reproductive Problems Other: No history of: Anesthesia Reactions, Anaphylaxis, Cancer, Eczema, HIV, Malignant Hyperthermia, MRSA, Vancomycin-Resistant Enterococci, Skin Problems, Miscellaneous Medical Problems - Surgical History Cardiac Surgeries: Patient Denies: Femoral-Popliteal Bypass Graft, Cardiac Catheterization, Cardiac Surgery, Carotid Endarterectomy, Internal Defibrillator, Vascular Access Devices Thoracic Surgeries: Patient denies;: Kidney (Renal Surgery), Lithotripsy, Nephrectomy, Organ Transplant, Lobectomy Neurologic Surgeries: Patient denies: Brain Aneurysm, Cerebral Hemorrhage, Neurologic Surgery HEENT Surgeries: Patient denies: Carotid Endarterectomy, Eye Surgery, Thyroid Surgery, Tonsilectomy & Adenoidectomy Abdominal Surgeries: Patient denies: Abdominal Surgery, Appendectomy, Cholecystectomy, Colonoscopy , Gastric Bypass Surgery, EGD, Hernia Repair, Splenectomy Reproductive Surgeries: Surgical HX of;: Section, Tubal Ligation Patient denies;: Breast Surgery, Cystoscopy, Dilation and Curettage, Genitourinary Surgery, Gynecologic Surgery, Hysterectomy Orthopedic Surgeries: Patient denies;: Implanted Devices, Orthopedic Surgery, Spinal Surgery, Total Hip Replacement, Total Knee Replacement - Family History Family History: Reports;: Family Diabetes (father mother sister), Family Heart Disease (father), Family Hypertension (father), Family Stroke (mother) Denies;: Family Anesthesia Reaction, Family Cancer (neice kidney ca), Family Psychiatric Problems - Social History Smoking Status: Former smoker Frequency of Alcohol Use: None Type of Drug Use: None Lives With:: Alone Functional capacity: independent ambulation Review of systems: A complete 10 system review of systems was obtained and pertinent positives and negatives per HPI Exam - Constitutional Vitals: Period Temp Pulse Resp BP Sys/Encarnacion Pulse Ox Last 24 Hr 98.9 F-98.9 F 77-94 18-18 134-229/75-119 97-100 Exam: Constitutional System: No distress. No tremulousness. Head: Normocephalic, atraumatic. Ears, Nose and Throat System: No evidence of Otitis or Mastoiditis. No epistaxis or discharge Eyes System: Pupils equal, round, and reactive. Extraocular muscles intact. Neck: Supple, without adenopathy, No jugular venous distention. No thyromegaly, neck mass, or prior surgery apparent. Respiratory System: Chest clear to auscultation. Cardiovascular System: Heart with regular rate and rhythm. No murmur. GI System: Abdomen soft, mildly tender. Normo active bowel sounds present. Musculoskeletal System: limbs with 1+ pedal edema. Full distal pulses. Neurological System: No discernable sensory deficit. No aphasia Psychiatric System: Conversation is rational Results - Labs CBC & BMP: 09/05/16 13:34 09/05/16 13:34 Lab Results: I have reviewed the past 24 hour labs - Impressions EKG showing sinus rhythm with moderate with voltage criteria for LVH, nonspecific T-wave abnormality - Diagnostic Findings Procedure: Chest x-ray: report reviewed by me (No acute process), X-ray: report reviewed by me (No evidence of bowel obstruction. There are air-fluid levels in some loops of small bowel within the mid and left abdomen. This could reflect enteritis or mild ileus.) <Reza Cartagena - Last Filed: 09/05/16 17:59> History of Present Illness History of present illness: Ms. Kerns is a 41 year old female Exam - Constitutional Vitals: Period Temp Pulse Resp BP Sys/Encarnacion Pulse Ox Last 24 Hr 98.9 F-98.9 F 77-94 18-18 134-229/75-119 97-100 Results - Labs CBC & BMP: 09/05/16 13:34 05/04/17 13:34
[2016-09-05] MEDS ORDERED: MORPHINE 2 MG/1 ML SYRINGE IV PRN (17:38)
[2016-09-05] MEDS ORDERED: guaiFENesin/DM ER 600-30 MG TABLET PO PRN (17:38)
[2016-09-05] MEDS ORDERED: DOCUSATE SODIUM 100 MG CAPSULE PO PRN (17:38)
[2016-09-05] MEDS ORDERED: ACETAMINOPHEN 325 MG TABLET PO PRN (17:38)
[2016-09-05] MEDS ORDERED: PROMETHAZINE 25 MG/1 ML VIAL IM PRN (17:38)
[2016-09-05] MEDS ORDERED: ONDANSETRON 4 MG/2 ML VIAL IV PRN ×2 (17:38→17:57)
[2016-09-05] MEDS ORDERED: diphenhydrAMINE CAP 25 MG CAPSULE PO PRN (17:38)
[2016-09-05] MEDS ORDERED: DEXTROSE 50% 25 GM/50 ML VIAL IV PRN (17:45)
[2016-09-05] MEDS ORDERED: GLUCAGON 1 MG VIAL IM PRN (17:45)
[2016-09-05] MEDS ORDERED: ENOXAPARIN 40 MG/0.4 ML SYRINGE SUBCUT SCH (18:00)
[2016-09-05] MEDS: ENOXAPARIN 30 MG/0.3 ML SYRINGE SUBCUT SCH (21:27)
[2016-09-05] MEDS: SODIUM CHLOR 0.45% KCL 20 MEQ 20 MEQ/1,000 ML BAG IV SCH (21:27)
[2016-09-05] MEDS: CARVEDILOL 25 MG TABLET PO SCH (21:27)
[2016-09-05] MEDS: INSULIN REGULAR 100 UNIT/ML SUBCUT SCH (21:31)
[2016-09-05] MEDS: GABAPENTIN 300 MG CAPSULE PO SCH (21:31)
[2016-09-06 06:23] LABS: Basophils % 0.3 % (0.0-0.8); Eosinophils # 0.2 10*3/uL (0.0-0.87); Eosinophils % 3.6 % (0.00-10.9); Hemoglobin 8.3 GM/DL (12.0-16.0); Immature Granulocytes % 0.6 %; Immature Granulocytes Absolute 0.04 #; Lymphocytes # 2.9 10*3/uL (1.4-4.0); Lymphocytes % 45.1 % (21.3-54.2); Mean Corpuscular HGB Conc 31.9 GM/DL (32-36); Mean Corpuscular Hemoglobin 29 PG (27-34); Mean Corpuscular Volume 90.3 FL (87-102); Mean Platelet Volume 10.1 FL (9.6-12.0); Monocytes # 0.3 10*3/uL (0.11-0.8); Monocytes % 4.7 % (1.7-12.7); Neutrophils # 2.9 10*3/uL (1.4-7.4); Neutrophils % 45.7 % (38.7-73.9); Platelet Count 244 T/CUMM (130-400); Red Blood Count 2.88 MC/CUMM (3.8-5.5); Red Cell Distribution Width 13.2 % (9.3-17.3); White Blood Count 6.3 T/CUMM (4-12)
[2016-09-06 06:50] LABS: Calcium 6.1 MG/DL (8.5-10.1); Magnesium 1.8 MG/DL (1.8-2.4); Osmolality,Calculated 301.3 MOS/KG (273-304); Potassium 3.5 MMOL/L (3.5-5.1)
[2016-09-06] MEDS: INSULIN REGULAR 100 UNIT/ML SUBCUT SCH ×2 (07:15→16:37)
[2016-09-06] MEDS: SODIUM CHLOR 0.45% KCL 20 MEQ 20 MEQ/1,000 ML BAG IV SCH (07:30)
--- NOTE | 2016-09-06 08:46 | Nephrology Consult Note ---
History of Present Illness Chief complaint: Nausea vomiting and diarrhea in a patient with stage IV chronic kidney dz History of present illness: Ms. Kerns is a 41 year old female with diabetes and hypertension seen in the outpatient setting for chronic kidney disease. The patient states she began have vomiting and diarrhea about 4 days ago. The patient states she has been nauseated every morning for the past month or more. She also complains of paroxysmal nocturnal dyspnea symptoms for several weeks now. The patient has been taking Lasix 160 mg 3 times a day but states this is not been affecting much of a diuresis in her. Patient states her urine output is just 2 or 3 episodes of urination per day. And does not seem like much to her. The patient was in the hospital about 2 months ago with heart failure she had a creatinine of around 5.3 mg/dL at that the patient was seen by me about a month ago and her creatinine was 4.8 mg/dL at that time on admission here the patient' s creatinine is 4.7 mg/dL. The patient denies any fever or chills. She states she has noticed that whenever she takes in anything by mouth she has to go to the bathroom quite rapidly afterwards. The patient also complains of some swelling in her throat but not really a soreness. The patient was noted to have an albumin level of 1.1 previous hospitalization and had about 8 g of protein leakage per day spot microalbumin to creatinine ratio. ROS: Head - denies headaches ENT - denies sore throat Lymphatics - denies lymphadenopathy Hematology - denies bleeding problems Heart - denies chest pain Lungs -positive shortness of breath Abdomen - denies abdominal pain Musculoskeletal - denies arthritis Skin - denies rash, she states she has some itching in her mid back region Neurology - denies stroke General - denies fever PE: General: in no acute distress Eyes: Pupils are round and reactive, conjunctivae are clear ENT: Nose is clear, O/P is benign Neck: Supple, no thyromegaly Lymphatics: No cervical, supraclavicular or axillary adenopathy Heart: Regular rate and rhythm, 2+ pretibial edema Lungs: Clear to auscultation anteriorly, chest expansion symmetric Abdomen: Soft, normoactive bowel sounds, no hepatomegaly Musculoskeletal: No joint erythema or effusions or joint asymmetry Skin: Normal turgor, normal hydration, no rash Neuro/Psych: Alert and cooperative with fair insight Home Medications Medication Instructions Recorded Confirmed Type Pravastatin [Pravachol] 40 mg PO BEDTIME 12/21/14 09/05/16 History Gabapentin 300 mg PO TID 03/05/16 09/05/16 History hydrALAZINE TAB [Apresoline Tab] 25 mg PO BID 03/05/16 09/05/16 History Carvedilol [Coreg] 25 mg PO BID #60 tablet 03/09/16 09/05/16 Rx Furosemide Tab [Lasix Tab] 160 mg PO BID DIURETIC #120 tablet 03/27/16 09/05/16 Rx Insulin Glargine [Lantus] 30 unit SUBCUT QAM 07/17/16 09/05/16 History Lisinopril/Hctz 20-25 [Prinzide 1 tablet PO QAM 09/05/16 09/05/16 History 20-25] Allergies Allergy/AdvReac Type Severity Reaction Status Date / Time No Known Allergies Allergy Verified 03/22/16 03:54 Medical,Surgical,& Family Hx - Medical History Cardio: History of: Hypertension No history of: Aneurysm, Cardiac Dysrhythmia, Cerebrovascular Disease, Congenital Heart Disease, CHF, CAD, MD, Pacemaker, PVD, Valvular Heart Disease, Cardiovascular Problems Psychological: History of: Anxiety Disorders, Depression No history of: ADHD, Behavior Problems, Bipolar Disorder, Previous Suicide Attempt, Psychiatric/Substance Abuse Tx, Schizophrenia, Violent Behavior, Psychiatric Problems Neurology: No history of: Brain Aneurysm, Cerebral Hemorrhage, Cerebrovascular Accident , Cerebral Palsy, Dementia, Migraine, Multiple Sclerosis, Parkinson's Disease, Peripheral Neuropathy, Seizures, TIA, Vertigo, Neurologocal Cancer HEENT: No history of: Ear Problem, Eye Problem, Dental Problems, Glaucoma, Oral Cancer, HEENT Problems Endocrine: History of: Diabetes Mellitus (IDDM), Dyslipidemia No history of: Adrenal Disease, Diabetes Mellitus (NIDDM), Thyroid Disorder, Endocrine Cancer, Endocrine Problems Rheumatology: No history of;: Fibromyalgia, Gout, Myasthenia Gravis, Psoriasis, Rheumatoid Arthritis, Sjogrens, Systemic Lupus Erythematosus, Rheumatological Problems Respiratory: No history of: Asthma, Bronchitis, COPD, Intubation, Obstructive Sleep Apnea , Pulmonary Embolism, Pulmonary Hypertension, Pneumonia, Lung Cancer, Respiratory Problems Renal: History of: Dialysis (Sees Dr. Tinoco, needs to start dialysis in a few weeks), Renal Problems (CKD) No history of: Renal (Kidney) Cancer, Renal Failure Genitourinary: No history of: Bladder Problem, Kidney Stones, Recurring Urinary Tract Infections, Genitourinary Cancer, Problems Gastrointestinal: No history of: Bowel Obstruction, Clostridium Difficile, Crohn's Disease, Diverticulitis/ Diverticulosis, Esophageal Varices, GERD, Gastrointestinal Bleed , Hemorrhoids, Hematochezia, Hepatitis, Liver Problems, Pancreatitis, Polyps, Ulcerative Colitis, Gastrointestinal Cancer, GI Problems Musculoskeletal: No history of: Amputation, Back/Neck Problems, Degenerative Disk Disease, Herniated Disk, Osteoporosis, Musculoskeletal Cancer, Musculoskeletal Problems Hematology: No history of: Anemia, Blood Transfusion Reaction, Bleeding Problems, Clotting Problems, Sickle Cell Disease, Hematologic Cancer, Blood Disorders Reproductive: History of: Reproductive Problems (pt. having abn. vag bleed/ was given depo recently [facility]ke[facility] pt.) No history of: Abnormal Pap Smear, Breast Cancer, Endometriosis, Ectopic , Ovarian Cysts, Complication, Sexually Transmitted Disorders , Reproductive Cancer Other: No history of: Anesthesia Reactions, Anaphylaxis, Cancer, Eczema, HIV, Malignant Hyperthermia, MRSA, Vancomycin-Resistant Enterococci, Skin Problems, Miscellaneous Medical Problems - Surgical History Cardiac Surgeries: Patient Denies: Femoral-Popliteal Bypass Graft, Cardiac Catheterization, Cardiac Surgery, Carotid Endarterectomy, Internal Defibrillator, Vascular Access Devices Thoracic Surgeries: Patient denies;: Kidney (Renal Surgery), Lithotripsy, Nephrectomy, Organ Transplant, Lobectomy Neurologic Surgeries: Patient denies: Brain Aneurysm, Cerebral Hemorrhage, Neurologic Surgery HEENT Surgeries: Patient denies: Carotid Endarterectomy, Eye Surgery, Thyroid Surgery, Tonsilectomy & Adenoidectomy Abdominal Surgeries: Patient denies: Abdominal Surgery, Appendectomy, Cholecystectomy, Colonoscopy , Gastric Bypass Surgery, EGD, Hernia Repair, Splenectomy Reproductive Surgeries: Surgical HX of;: Section, Tubal Ligation Patient denies;: Breast Surgery, Cystoscopy, Dilation and Curettage, Genitourinary Surgery, Gynecologic Surgery, Hysterectomy Orthopedic Surgeries: Patient denies;: Implanted Devices, Orthopedic Surgery, Spinal Surgery, Total Hip Replacement, Total Knee Replacement - Family History Family History: Reports;: Family Diabetes (father mother sister), Family Heart Disease (father), Family Hypertension (father), Family Stroke (mother) Denies;: Family Anesthesia Reaction, Family Cancer (neice kidney ca), Family Psychiatric Problems Additional Family History: Patient has a sister on dialysis - Social History Smoking Status: Former smoker Frequency of Alcohol Use: None Type of Drug Use: None Exam - Vital Signs Vital signs: Period Temp Pulse Resp BP Sys/Encarnacion Pulse Ox Last 24 Hr 98.4 F-98.5 F 77-86 18-20 119-158/48-81 95-100 Results - Labs CBC & BMP: 09/06/16 05:49 09/06/16 05:49 Assessment and Plan (1) End stage renal disease Status: Acute Assessment and plan: This patient is demonstrating signs of uremia with nausea and vomiting she is also having diarrhea which may be secondary to bowel wall edema. The patient's creatinine is around 4.7 mg/dL despite this lowish creatinine think the patient would be better off on dialysis at this point and will ultimately feel better with this therapy. We will ask surgery to place a dialysis catheter and placed in a timely fashion today we will initiate dialysis today and tomorrow Current Visit: Yes (2) Diabetic nephropathy Status: Acute Current Visit: Yes (3) DM2 (diabetes mellitus, type 2) Status: Acute Assessment and plan: Patient has been having some hypoglycemic episodes I agree with sliding scale insulin coverage Current Visit: Yes Qualifiers: Diabetes mellitus complication status: with kidney complications Diabetes mellitus complication detail: with nephropathy (4) Diarrhea Status: Acute Current Visit: Yes (5) Gastroenteritis Status: Acute Assessment and plan: This patient has been having nausea and vomiting as well as diarrhea the past few days, this may be a combination of a gastroenteritis uremia and bowel wall edema as well as some diabetic gastroparesis. Hopefully this will improve as we dialyze her and her kidney function draws parents allowing her to retain some of the albumin that her body produces. Current Visit: Yes (6) Hypertension Status: Chronic Current Visit: No (7) Peripheral edema Status: Chronic Current Visit: No (8) Hypoglycemia associated with type 2 diabetes mellitus Status: Resolved Current Visit: No (9) Hypokalemia Status: Acute Assessment and plan: This has improved with IV fluid replacement Current Visit: Yes (10) Anemia Status: Acute Assessment and plan: I will start the patient on EPO and will check iron stores Current Visit: No Qualifiers: Anemia type: unspecified type Qualified Code(s): D64.9 - Anemia, unspecified (11) Hypoalbuminemia Status: Acute Current Visit: No
[2016-09-06] MEDS ORDERED: EPOETIN ALFA 10,000 UNIT/1 ML VIAL IV PRN (08:53)
[2016-09-06 09:13] LABS: % Iron Saturation 55.1 % (18-50); Ferritin 431.7 ng/ml (8-252)
[2016-09-06] MEDS ORDERED: HEPARIN 5,000 UNIT/1 ML VIAL ONE (09:20)
[2016-09-06] MEDS ORDERED: BUPIVACAINE 0.25% 50 ML VIAL ONE ×2 (09:20→09:32)
--- NOTE | 2016-09-06 09:27 | General Surgery Consult Note ---
Assessment and Plan (1) End stage renal disease Status: Acute Assessment and plan: We will proceed with hemodialysis catheter placement today. Discussed indications for dialysis and the placement of catheter with the patient and her spouse was present. The risks were reviewed including but not limited to infection, bleeding, blood vessel injury, nerve injury, hemothorax, pneumothorax , and blood infection. Discussed this is a temporary measure and she may ultimately require additional procedures for in the future for continued dialysis. The patient and her spouse were present expressed understanding of the above and agree to proceed today. Current Visit: Yes History of Present Illness Chief complaint: ESRD - uremia History of present illness: Ms. Kerns is a 41 year old female with past medical history of diabetes mellitus, hypertension, and end-stage renal disease. She is currently admitted with uremia and worsening renal failure. 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 Patient is in agreement with this plan. Home Medications Medication Instructions Recorded Confirmed Type Pravastatin [Pravachol] 40 mg PO BEDTIME 12/21/14 09/05/16 History Gabapentin 300 mg PO TID 03/05/16 09/05/16 History hydrALAZINE TAB [Apresoline Tab] 25 mg PO BID 03/05/16 09/05/16 History Carvedilol [Coreg] 25 mg PO BID #60 tablet 03/09/16 09/05/16 Rx Furosemide Tab [Lasix Tab] 160 mg PO BID DIURETIC #120 tablet 03/27/16 09/05/16 Rx Insulin Glargine [Lantus] 30 unit SUBCUT QAM 07/17/16 09/05/16 History Lisinopril/Hctz 20-25 [Prinzide 1 tablet PO QAM 09/05/16 09/05/16 History 20-25] Allergies Allergy/AdvReac Type Severity Reaction Status Date / Time No Known Allergies Allergy Verified 03/22/16 03:54 Medical,Surgical,& Family Hx - Medical History Cardio: History of: Hypertension No history of: Aneurysm, Cardiac Dysrhythmia, Cerebrovascular Disease, Congenital Heart Disease, CHF, CAD, NM, Pacemaker, PVD, Valvular Heart Disease, Cardiovascular Problems Psychological: History of: Anxiety Disorders, Depression No history of: ADHD, Behavior Problems, Bipolar Disorder, Previous Suicide Attempt, Psychiatric/Substance Abuse Tx, Schizophrenia, Violent Behavior, Psychiatric Problems Neurology: No history of: Brain Aneurysm, Cerebral Hemorrhage, Cerebrovascular Accident , Cerebral Palsy, Dementia, Migraine, Multiple Sclerosis, Parkinson's Disease, Peripheral Neuropathy, Seizures, TIA, Vertigo, Neurologocal Cancer HEENT: No history of: Ear Problem, Eye Problem, Dental Problems, Glaucoma, Oral Cancer, HEENT Problems Endocrine: History of: Diabetes Mellitus (IDDM), Dyslipidemia No history of: Adrenal Disease, Diabetes Mellitus (NIDDM), Thyroid Disorder, Endocrine Cancer, Endocrine Problems Rheumatology: No history of;: Fibromyalgia, Gout, Myasthenia Gravis, Psoriasis, Rheumatoid Arthritis, Sjogrens, Systemic Lupus Erythematosus, Rheumatological Problems Respiratory: No history of: Asthma, Bronchitis, COPD, Intubation, Obstructive Sleep Apnea , Pulmonary Embolism, Pulmonary Hypertension, Pneumonia, Lung Cancer, Respiratory Problems Renal: History of: Dialysis (Sees Dr. Tinoco, needs to start dialysis in a few weeks), Renal Problems (CKD) No history of: Renal (Kidney) Cancer, Renal Failure Genitourinary: No history of: Bladder Problem, Kidney Stones, Recurring Urinary Tract Infections, Genitourinary Cancer, Problems Gastrointestinal: No history of: Bowel Obstruction, Clostridium Difficile, Crohn's Disease, Diverticulitis/ Diverticulosis, Esophageal Varices, GERD, Gastrointestinal Bleed , Hemorrhoids, Hematochezia, Hepatitis, Liver Problems, Pancreatitis, Polyps, Ulcerative Colitis, Gastrointestinal Cancer, GI Problems Musculoskeletal: No history of: Amputation, Back/Neck Problems, Degenerative Disk Disease, Herniated Disk, Osteoporosis, Musculoskeletal Cancer, Musculoskeletal Problems Hematology: No history of: Anemia, Blood Transfusion Reaction, Bleeding Problems, Clotting Problems, Sickle Cell Disease, Hematologic Cancer, Blood Disorders Reproductive: History of: Reproductive Problems (pt. having abn. vag bleed/ was given depo recently Mckeiver pt.) No history of: Abnormal Pap Smear, Breast Cancer, Endometriosis, Ectopic , Ovarian Cysts, Complication, Sexually Transmitted Disorders , Reproductive Cancer Other: No history of: Anesthesia Reactions, Anaphylaxis, Cancer, Eczema, HIV, Malignant Hyperthermia, MRSA, Vancomycin-Resistant Enterococci, Skin Problems, Miscellaneous Medical Problems - Surgical History Cardiac Surgeries: Patient Denies: Femoral-Popliteal Bypass Graft, Cardiac Catheterization, Cardiac Surgery, Carotid Endarterectomy, Internal Defibrillator, Vascular Access Devices Thoracic Surgeries: Patient denies;: Kidney (Renal Surgery), Lithotripsy, Nephrectomy, Organ Transplant, Lobectomy Neurologic Surgeries: Patient denies: Brain Aneurysm, Cerebral Hemorrhage, Neurologic Surgery HEENT Surgeries: Patient denies: Carotid Endarterectomy, Eye Surgery, Thyroid Surgery, Tonsilectomy & Adenoidectomy Abdominal Surgeries: Patient denies: Abdominal Surgery, Appendectomy, Cholecystectomy, Colonoscopy , Gastric Bypass Surgery, EGD, Hernia Repair, Splenectomy Reproductive Surgeries: Surgical HX of;: Section, Tubal Ligation Patient denies;: Breast Surgery, Cystoscopy, Dilation and Curettage, Genitourinary Surgery, Gynecologic Surgery, Hysterectomy Orthopedic Surgeries: Patient denies;: Implanted Devices, Orthopedic Surgery, Spinal Surgery, Total Hip Replacement, Total Knee Replacement - Family History Family History: Reports;: Family Diabetes (father mother sister), Family Heart Disease (father), Family Hypertension (father), Family Stroke (mother) Denies;: Family Anesthesia Reaction, Family Cancer (neice kidney ca), Family Psychiatric Problems - Social History Smoking Status: Former smoker Frequency of Alcohol Use: None Type of Drug Use: None Exam - Constitutional Vitals: Period Temp Pulse Resp BP Sys/Encarnacion Pulse Ox Last 24 Hr 98.4 F-98.5 F 77-86 18-20 119-158/48-81 95-100 General appearance: no acute distress - Eye Eye exam: Absent: conjunctival injection, scleral icterus - Respiratory Respiratory exam: Present: clear to auscultation bilaterally - Cardiovascular Cardiovascular exam: Present: RRR - GI/Abdominal GI/Abdominal exam: Present: normal bowel sounds, soft. Absent: tenderness - Extremities Exam Extremities exam: Absent: calf tenderness, edema - Neurological Exam Neurological exam: Present: alert, oriented X3 - Skin Skin exam: Present: normal color, warm Results - Labs CBC & BMP: 09/06/16 05:49 09/06/16 05:49
[2016-09-06] MEDS: CARVEDILOL 25 MG TABLET PO SCH ×2 (09:33→21:07)
[2016-09-06] MEDS: PANTOPRAZOLE 40 MG TABLET PO SCH (09:33)
[2016-09-06] MEDS: GABAPENTIN 300 MG CAPSULE PO SCH ×3 (09:34→21:06)
[2016-09-06] MEDS: INSULIN GLARGINE 100 UNIT/ML SUBCUT SCH (09:34)
--- NOTE | 2016-09-06 10:56 | Operative Note ---
Date of procedure: 09/06/16 Pre-op diagnosis: Renal failure Post-op diagnosis: same Procedure: Preoperative diagnosis Renal failure with need for hemodialysis access Postoperative diagnosis Same Procedures performed 1. Right internal jugular vein tunneled hemodialysis catheter placement 2. Ultrasound guidance and interpretation of images 3. Fluoroscopic guidance and interpretation of images Findings The right internal jugular vein is compressible and it was accessed for hemodialysis access. The tip of the catheter was place in the right atrium. Patient tolerated procedure well and both ports worked well. Complications none apparent Specimen None Indications Renal failure with need for access for hemodialysis Description of procedure The patient was taken to the operating room and transferred to the operating table in the supine position. Pressure points are padded and SCDs placed lower extremity. Monitored anesthesia was administered and the neck was prepped and draped sterile fashion using chloride same. Preoperative antibiotics were administered and a timeout was performed. Ultrasound was used to identify the internal jugular vein and local anesthetic was infiltrated around the vein. Local anesthetic was also administered around the planned tract site down to the anterior chest wall below the clavicle. The vein was accessed on first stick and nonpulsatile venous blood was obtained. A wire was placed using Seldinger technique. An incision was made alongside the wire using a long blade scalpel and a separate incision below the clavicle was made with an 11 blade scalpel. A 19 cm catheter was tunneled from the chest incision into the neck wound and a dilator peel-away sheath was placed over the wire. The wire and dilator was removed and the catheter was placed to the peel-away sheath. The catheter was secured in place in the right atrium on fluoroscopic images. Both returned blood easily and were flushed with heparin. The catheter was secured in place using 3-0 nylon sutures and the neck incision was closed with 3 -0 nylon suture. Sterile dressings were applied. The patient was awakened from anesthesia and transferred to recovery. Postoperative plan Begin hemodialysis and obtained chest x-ray postop Implants: 19cm tunneled hemodialysis catheter Anesthesia: MAC, local Surgeon / Physician: Alexis Emery Estimated blood loss: minimal Specimens: none sent Condition: stable Disposition: PACU Results - Labs CBC & BMP: 09/06/16 05:49 09/06/16 05:49 Discharge Plan - Discharge Medications No Action Pravastatin [Pravachol] 40 mg PO BEDTIME hydrALAZINE TAB [Apresoline Tab] 25 mg PO BID Gabapentin 300 mg PO TID Carvedilol [Coreg] 25 mg PO BID #60 tablet Furosemide Tab [Lasix Tab] 160 mg PO BID DIURETIC #120 tablet Insulin Glargine [Lantus] 30 unit SUBCUT QAM Lisinopril/Hctz 20-25 [Prinzide 20-25] 1 tablet PO QAM - Follow Up or Referral Follow Up: Alexis Emery MD [Physician] - 2 Weeks (with vein mapping) - Forms/Instructions
[2016-09-06 11:07] LABS: Hepatitis A Ab IgM Quant < 0.02 Index; Hepatitis A Ab IgM Result Negative (Negative); Hepatitis B Core IgM Quant 0.68 Index; Hepatitis B Core IgM Result Negative (Negative); Hepatitis B Surface Ag Quant 0.34 Index; Hepatitis B Surface Ag Result Negative (Negative); Hepatitis C Virus Ab Quant 0.08 Index; Hepatitis C Virus Ab Result Negative (Negative)
[2016-09-06] MEDS ORDERED: SODIUM CHLORIDE 0.9% 100 ML IV ONE (11:14)
[2016-09-06] MEDS ORDERED: fentaNYL 100 MCG/2 ML VIAL ONE (11:14)
[2016-09-06] MEDS ORDERED: MIDAZOLAM 2 MG/2 ML VIAL ONE (11:14)
--- NOTE | 2016-09-06 11:50 | XRay Report ---
History: Dialysis catheter placement. Renal failure Date: 09/06/2016 Study: Chest x-ray AP portable Comparison exam: September 05, 2016 A right IJ dialysis access catheter is well-positioned with its tip over the atriocaval junction region. There is no pneumothorax. There is mild cardiomegaly. There is no mediastinal mass. The pulmonary vasculature is slightly prominent. There is some strandy atelectatic change in the lower lungs. There is some suspected mild pulmonary edema in the lung bases. There is no pleural effusion. Osseous structures are similar. Impression: Satisfactory positioning of the dialysis catheter. No pneumothorax. Suspected mild CHF. Mild bibasilar atelectasis, more on the right PROCEDURE INTERPRETED AT [facility] DEPARTMENT OF RADIOLOGY Final Report Signed by: Dr. Anjali Chavarria
--- NOTE | 2016-09-06 12:22 | Anesthesia Post-Op ---
Anesthesia Post OP - Post Ansesthetic Evaluation Patient seen in post op: Yes Resp: within normal limits CV: within normal limits Mental: within normal limits Temp: within normal limits [id number]: within normal limits Nausea and Vomiting: within normal limits Pain: within normal limits
--- NOTE | 2016-09-06 13:01 | Dialysis Note ---
Dialysis Note - Dialysis Note Patient is seen on dialysis tolerated procedure. Blood pressure is 160/80.
[2016-09-06] MEDS ORDERED: HEPARIN 10,000 UNIT/10 ML VIAL IV PRN (14:36)
--- NOTE | 2016-09-06 15:00 | Interventional Radiology Rpt ---
Referring Physician: Alexis Emery Exam: IR fluoro guide CV catheter Date: September 06, 2016 at 11:03 AM Reason: Dialysis catheter placement Comparison: Chest one view portable September 06, 2016 at 11:05 AM Findings: 2 images of the chest were provided after performance of the procedure. Fluoroscopy time was 10 seconds. Images demonstrate a right-sided dialysis catheter with its distal tip at the right atrium. Please see the recent chest x-ray for further details. Impression: Images are presumed satisfactory for the purposes of the procedure. PROCEDURE INTERPRETED AT [facility] DEPARTMENT OF RADIOLOGY Final Report Signed by: Dr. Mukul Bo
--- NOTE | 2016-09-06 15:46 | Hospitalist Progress Note ---
Assessment and Plan (1) End stage renal disease Status: Acute Assessment and plan: Impression: 1. Chronic kidney disease, now end-stage. She had her first dialysis treatment today 2. Type II DM 3. Hypertension Plan: Continue dialysis. Advance diet. Discharge when cleared by nephrology. This note was completed using [employer] voice recognition software. 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 Current Visit: Yes Hospitalist: Subjective Interval history: Follow-up hypertension, type II DM, and end-stage renal disease. The patient was admitted to the hospital for what appears to be increasing uremic symptoms with nausea and vomiting. Creatinine has been fairly stable at about 4.5-5.0 for the past several months. She was seen by nephrology this morning. A dialysis catheter was placed, and she received her first dialysis treatment today. She reports that she already feels better, and actually tolerated some solid food while she was finishing up dialysis. Exam - Constitutional Vitals: Period Temp Pulse Resp BP Sys/Encarnacion Pulse Ox Last 24 Hr 97.9 F-98.6 F 67-86 12-20 119-166/48-91 95-100 Vital signs are noted above. Heart is regular with no murmur or gallop. Lungs are clear with no rales or wheezes. Abdomen is soft and minimally tender. There is no sign of peritoneal irritation. She is awake and alert Results - Labs CBC & BMP: 09/06/16 05:49 09/06/16 05:49 Specialty Discharge - Follow Up or Referrals Follow up with: Alexis Emery MD [Physician] - 2 Weeks (with vein mapping)
[2016-09-06] MEDS: ENOXAPARIN 30 MG/0.3 ML SYRINGE SUBCUT SCH (21:07)
[2016-09-07] MEDS: INSULIN REGULAR 100 UNIT/ML SUBCUT SCH ×2 (08:25→15:53)
[2016-09-07] MEDS: INSULIN GLARGINE 100 UNIT/ML SUBCUT SCH (08:27)
--- NOTE | 2016-09-07 09:17 | Dialysis Note ---
Dialysis Note - Dialysis Note Ms. Argueta is seen during her hemodialysis. She is tolerating dialysis well today. We are maintaining her weight. She seems to be at her dry weight
[2016-09-07] MEDS: CARVEDILOL 25 MG TABLET PO SCH ×2 (12:27→21:14)
[2016-09-07] MEDS: GABAPENTIN 300 MG CAPSULE PO SCH ×3 (12:27→21:14)
[2016-09-07] MEDS: PANTOPRAZOLE 40 MG TABLET PO SCH (12:28)
--- NOTE | 2016-09-07 15:09 | Hospitalist Progress Note ---
Assessment and Plan (1) End stage renal disease Status: Acute Assessment and plan: Impression: 1. Chronic kidney disease, now end-stage. She had her second dialysis treatment today 2. Type II DM 3. Hypertension Plan: Continue dialysis. Plan on discharge tomorrow. This note was completed using [employer] voice recognition software. There may be hand zipper trimmer errors as a result. Current Visit: Yes Hospitalist: Subjective Interval history: Follow-up end-stage renal disease, hypertension, and type II DM. The patient says that she feels much better after her second dialysis treatment. She is looking forward to receiving her third treatment tomorrow, and then going home. She offers no new complaints at this time. Exam - Constitutional Vitals: Period Temp Pulse Resp BP Sys/Encarnacion Pulse Ox Last 24 Hr 97.4 F-99.9 F 64-98 18-21 125-176/64-78 97-99 Vital signs are noted above. Heart is regular with no murmur or gallop. Lungs are clear with no rales or wheezes. Abdomen is soft with minimal tenderness. Bowel sounds are present. She is awake and alert. Results - Labs CBC & BMP: 09/06/16 05:49 09/06/16 05:49 Specialty Discharge - Follow Up or Referrals Follow up with: Alexis Emery MD [Physician] - 2 Weeks (with vein mapping)
[2016-09-07] MEDS: ENOXAPARIN 30 MG/0.3 ML SYRINGE SUBCUT SCH (21:14)
[2016-09-08] MEDS: INSULIN REGULAR 100 UNIT/ML SUBCUT SCH ×2 (08:32→15:52)
[2016-09-08] MEDS: INSULIN GLARGINE 100 UNIT/ML SUBCUT SCH (08:33)
[2016-09-08] MEDS: CARVEDILOL 25 MG TABLET PO SCH ×2 (08:33→20:29)
[2016-09-08] MEDS: GABAPENTIN 300 MG CAPSULE PO SCH ×3 (08:33→20:29)
[2016-09-08] MEDS: PANTOPRAZOLE 40 MG TABLET PO SCH (08:34)
--- NOTE | 2016-09-08 10:38 | Nephrology Progress Note ---
Nephrology - PN: Subj Interval history: Ms. Argueta is seen in follow-up of her end-stage renal disease. She dialyzed on Friday and Friday and did well. She will rest today and will dialyze tomorrow. Hopefully she will be able to be scheduled into the outpatient dialysis unit and continue her dialysis as an outpatient. Her chest is clear. Exam (PN)-Nephrology - Vital Signs Vital signs: Period Temp Pulse Resp BP Sys/Encarnacion Pulse Ox Last 24 Hr 97.7 F-99.5 F 64-93 18-20 154-195/69-92 95-100 - Lab 09/06/16 05:49 09/06/16 05:49 Most recent lab results Calcium 6.1 MG/DL (8.5-10.1) L 09/06/16 05:49 Magnesium 1.8 MG/DL (1.8-2.4) 09/06/16 05:49 Specialty Discharge - Follow Up or Referrals Follow up with: Alexis Emery MD [Physician] - 2 Weeks (with vein mapping)
[2016-09-08] MEDS: diphenhydrAMINE CAP 25 MG CAPSULE PO PRN (20:28)
[2016-09-08] MEDS: ENOXAPARIN 30 MG/0.3 ML SYRINGE SUBCUT SCH (20:29)
--- NOTE | 2016-09-09 08:41 | Nephrology Progress Note ---
Nephrology - PN: Subj Interval history: Patient states she is feeling much better her nausea and vomiting have improved her diarrhea has improved as well. Review of systems pulmonary she denies shortness of breath, general-the patient has been up and moving about Physical exam general the patient in no acute distress, she has 2+ pretibial edema, her weight is down about 3 EKGs from admission Assessment/plan #1. End-stage renal disease-we will continue hemodialysis support, she will dialyze today, I have spoken to the dialysis unit and [facility] this morning about her dialysis schedule, they are going to call me back with a shift and a time. 2. Nausea vomiting and diarrhea-this is improved 3. Diabetes mellitus continue sliding scale insulin 4. Hypertension continue present antihypertensives 5. Anemia-we will continue EPO If we can secure a shift today at an outpatient dialysis unit the patient could be discharged home. Exam (PN)-Nephrology - Vital Signs Vital signs: Period Temp Pulse Resp BP Sys/Encarnacion Pulse Ox Last 24 Hr 97.8 F-99.2 F 75-89 16-20 145-185/73-95 96-100 - Lab 09/06/16 05:49 09/06/16 05:49 Most recent lab results Calcium 6.1 MG/DL (8.5-10.1) L 09/06/16 05:49 Magnesium 1.8 MG/DL (1.8-2.4) 09/06/16 05:49 Assessment and Plan (1) End stage renal disease Status: Acute Assessment and plan: This patient is demonstrating signs of uremia with nausea and vomiting she is also having diarrhea which may be secondary to bowel wall edema. The patient's creatinine is around 4.7 mg/dL despite this lowish creatinine think the patient would be better off on dialysis at this point and will ultimately feel better with this therapy. We will ask surgery to place a dialysis catheter and placed in a timely fashion today we will initiate dialysis today and tomorrow Current Visit: Yes (2) Diabetic nephropathy Status: Acute Current Visit: Yes (3) DM2 (diabetes mellitus, type 2) Status: Acute Assessment and plan: Patient has been having some hypoglycemic episodes I agree with sliding scale insulin coverage Current Visit: Yes Qualifiers: Diabetes mellitus complication status: with kidney complications Diabetes mellitus complication detail: with nephropathy (4) Diarrhea Status: Acute Current Visit: Yes (5) Gastroenteritis Status: Acute Assessment and plan: This patient has been having nausea and vomiting as well as diarrhea the past few days, this may be a combination of a gastroenteritis uremia and bowel wall edema as well as some diabetic gastroparesis. Hopefully this will improve as we dialyze her and her kidney function draws parents allowing her to retain some of the albumin that her body produces. Current Visit: Yes (6) Hypertension Status: Chronic Current Visit: No (7) Peripheral edema Status: Chronic Current Visit: No (8) Hypoglycemia associated with type 2 diabetes mellitus Status: Resolved Current Visit: No (9) Hypokalemia Status: Acute Assessment and plan: This has improved with IV fluid replacement Current Visit: Yes (10) Anemia Status: Acute Assessment and plan: I will start the patient on EPO and will check iron stores Current Visit: No Qualifiers: Anemia type: unspecified type Qualified Code(s): D64.9 - Anemia, unspecified (11) Hypoalbuminemia Status: Acute Current Visit: No Specialty Discharge - Follow Up or Referrals Follow up with: Alexis Emery MD [Physician] - 2 Weeks (with vein mapping)
[2016-09-09] MEDS: INSULIN REGULAR 100 UNIT/ML SUBCUT SCH ×2 (09:11→16:36)
[2016-09-09] MEDS: INSULIN GLARGINE 100 UNIT/ML SUBCUT SCH (09:11)
--- NOTE | 2016-09-09 10:22 | Dialysis Note ---
Dialysis Note - Dialysis Note Ms. Argueta seen during hemodialysis. She is tolerating her third dialysis quite well. She anticipates being discharged
--- NOTE | 2016-09-09 13:01 | Discharge Summary ---
Hospital Course - Time spent with patient Time with patient DS: Greater than 30 minutes Specialty Discharge - Follow Up or Referrals Follow up with: Alexis Emery MD [Physician] - 2 Weeks (with vein mapping) Discharge Plan - Discharge Data Disposition: Disch To Home/Self Care Condition at Discharge: Stable Discharge Diet: advance to your usual diet - Discharge Medications No Action Pravastatin [Pravachol] 40 mg PO BEDTIME hydrALAZINE TAB [Apresoline Tab] 25 mg PO BID Gabapentin 300 mg PO TID Carvedilol [Coreg] 25 mg PO BID #60 tablet Furosemide Tab [Lasix Tab] 160 mg PO BID DIURETIC #120 tablet Insulin Glargine [Lantus] 30 unit SUBCUT QAM Lisinopril/Hctz 20-25 [Prinzide 20-25] 1 tablet PO QAM - Follow Up or Referral Follow Up: Alexis Emery MD [Physician] - 2 Weeks (with vein mapping) - Forms/Instructions Exam - Constitutional Vitals: Period Temp Pulse Resp BP Sys/Encarnacion Pulse Ox Last 24 Hr 98.1 F-99.2 F 79-89 16-20 161-207/78-100 96-100 General appearance: normal weight, no acute distress - Head Head exam: Present: normal inspection, normocephalic, atraumatic - Eye Eye exam: Present: EOMI Pupils: Present: JOLYNN - ENT ENT exam: Present: normal exam - Neck Neck exam: Present: normal inspection - Respiratory Respiratory exam: Present: clear to auscultation bilaterally. Absent: accessory muscle use, prolonged expiratory phase, wheezes - Cardiovascular Cardiovascular exam: Present: regular rate and rhythm. Absent: bradycardia, irregular rhythm, systolic murmur - GI/Abdominal GI/Abdominal exam: Present: normal bowel sounds. Absent: ascites, distended, hypoactive bowel sounds, tenderness - Extremities Exam Extremities exam: Present: normal inspection Discharge Results Procedures and tests throughout hospitalization: Pending Orders 09/10/16 04:00 CBC [Comp Blood Count Auto Diff] IN AM Labs on day of discharge: Labs from last 24 hours 09/09/16 09/09/16 09/08/16 10:55 07:45 20:05 POC Glucose 155 H 229 H 225 H 09/08/16 15:22 POC Glucose 190 H DS: Provider Date of admission: 09/05/16 17:38 Primary care physician: . No PCP Attending physician on admission: Reza Cartagena MD Consults: 09/06/16 08:36 Consult to Physician [CONS] Routine Comment: Consulting Provider: Alexis Emery Consult to Specialist Group: Surgery Person Notified: JULISA (ARACELI) Date Notified: 09/06/16 Time Notified: 08:43 Consult Notification Comment: DR KNIGHT [employer] SPECIALIST BUT DOES NOT DO HD CATHETERS AND SO DR CHAU ASKED FOR CHARMAINE 09/06/16 08:56 Consult to Case Mgmt/Social Srvs [CONS] Routine Reason for Case Mgmt/Social Srvs: Dialysis Discharging clinician: Mayra Brown MD Expected date of discharge: 09/09/16
--- NOTE | 2016-09-09 13:07 | Hospitalist Progress Note ---
Assessment and Plan - Time spent with patient Time spent with patient: Greater than 30 minutes (1) Hypertension Status: Chronic Assessment and plan: Patients blood pressure has been poorly controlled during her hospital stay. Will start the patient on hydralazine 50 BID and norvasc 10mg po daily. Patient will have to remain for another 24 hours for observation or until her BP improves. Current Visit: No (2) DM2 (diabetes mellitus, type 2) Status: Acute Assessment and plan: Continue current management. Current Visit: Yes Qualifiers: Diabetes mellitus complication status: with kidney complications Diabetes mellitus complication detail: with nephropathy (3) End stage renal disease Status: Acute Assessment and plan: Continue dialysis. Current Visit: Yes Hospitalist: Subjective Interval history: Denies any nausea, vomiting or diarrhea. Blood pressure is elevated at 207/100. Exam - Constitutional Vitals: Period Temp Pulse Resp BP Sys/Encarnacion Pulse Ox Last 24 Hr 98.1 F-99.2 F 79-89 16-20 161-207/78-100 96-100 General appearance: no acute distress - Head Head exam: Present: normocephalic, atraumatic - Eye Eye exam: Present: EOMI Pupils: Present: JOLYNN - ENT ENT exam: Present: normal exam - Neck Neck exam: Present: normal inspection - Respiratory Respiratory exam: Present: clear to auscultation bilaterally. Absent: rhonchi, wheezes - Cardiovascular Cardiovascular exam: Present: regular rate and rhythm. Absent: gallop, rubs, systolic murmur - GI/Abdominal GI/Abdominal exam: Present: normal bowel sounds, soft. Absent: distended, firm , guarding, tenderness, rebound - Extremities Exam Extremities exam: Present: normal inspection. Absent: calf tenderness, edema Results - Labs CBC & BMP: 09/06/16 05:49 09/06/16 05:49 Lab Results: I have reviewed the past 24 hour labs Specialty Discharge - Follow Up or Referrals Follow up with: Alexis Emery MD [Physician] - 2 Weeks (with vein mapping)
[2016-09-09] MEDS: GABAPENTIN 300 MG CAPSULE PO SCH ×3 (14:28→20:26)
[2016-09-09] MEDS: PANTOPRAZOLE 40 MG TABLET PO SCH (14:28)
[2016-09-09] MEDS: CARVEDILOL 25 MG TABLET PO SCH ×2 (14:28→20:26)
[2016-09-09] MEDS: amLODIPine 10 MG TABLET PO SCH (16:22)
[2016-09-09] MEDS: ENOXAPARIN 30 MG/0.3 ML SYRINGE SUBCUT SCH (20:26)
[2016-09-10 06:46] LABS: Basophils % 0.2 % (0.0-0.8); Eosinophils # 0.1 10*3/uL (0.0-0.87); Eosinophils % 1.7 % (0.00-10.9); Hematocrit 26.8 VOL% (35.7-47.0); Hemoglobin 8.6 GM/DL (12.0-16.0); Immature Granulocytes % 0.6 %; Immature Granulocytes Absolute 0.04 #; Lymphocytes # 2.7 10*3/uL (1.4-4.0); Lymphocytes % 41.8 % (21.3-54.2); Mean Corpuscular HGB Conc 32.1 GM/DL (32-36); Mean Corpuscular Hemoglobin 29 PG (27-34); Mean Platelet Volume 10.4 FL (9.6-12.0); Monocytes # 0.3 10*3/uL (0.11-0.8); Monocytes % 4.9 % (1.7-12.7); NRBC # 0.03 10*3/uL; Neutrophils # 3.3 10*3/uL (1.4-7.4); Neutrophils % 50.8 % (38.7-73.9); Platelet Count 188 T/CUMM (130-400); Red Blood Count 3.01 MC/CUMM (3.8-5.5); Red Cell Distribution Width 13.2 % (9.3-17.3); White Blood Count 6.5 T/CUMM (4-12)
[2016-09-10 07:14] LABS: Calcium 6.9 MG/DL (8.5-10.1); Osmolality,Calculated 291.6 MOS/KG (273-304); Potassium 3.6 MMOL/L (3.5-5.1)
[2016-09-10] MEDS: INSULIN REGULAR 100 UNIT/ML SUBCUT SCH (09:19)
[2016-09-10] MEDS: PANTOPRAZOLE 40 MG TABLET PO SCH (09:27)
[2016-09-10] MEDS: GABAPENTIN 300 MG CAPSULE PO SCH (09:27)
[2016-09-10] MEDS: CARVEDILOL 25 MG TABLET PO SCH (09:27)
[2016-09-10] MEDS: amLODIPine 10 MG TABLET PO SCH (09:28)
[2016-09-10] MEDS: INSULIN GLARGINE 100 UNIT/ML SUBCUT SCH (09:54)
--- NOTE | 2016-09-10 10:22 | XRay Report ---
Portable chest Date: 09/10/2016 Clinical history: Fever Comparison: 09/06/2016 Technique: Portable AP sitting chest Findings: The heart is borderline in size with the right IJ venous dialysis catheter. Reduced diffuse parenchymal findings with stable mediastinum and osseous structures. Impression: Improved CHF/pneumonitis. PROCEDURE INTERPRETED AT [facility] DEPARTMENT OF RADIOLOGY Final Report Signed by: Dr. Joanne Conley
--- NOTE | 2016-09-10 12:07 | Nephrology Progress Note ---
Nephrology - PN: Subj Interval history: Patient is feeling well. She denies shortness of breath. Review of systems GI she denies nausea or vomiting Physical exam general the patient chronically ill-appearing, she has 2+ lower extremity edema Assessment/plan 1. End-stage renal disease-patient has been accepted in [facility] for dialysis care she will follow-up there this and will be a Friday patient, the patient had hemodialysis yesterday she does not need dialysis today she should be fine until dialysis follow-up this . 2. Anemia we will continue EPO as an outpatient 3. Diabetes mellitus this is controlled 4. Hypertension this is controlled Exam (PN)-Nephrology - Vital Signs Vital signs: Period Temp Pulse Resp BP Sys/Encarnacion Pulse Ox Last 24 Hr 98.4 F-99.4 F 76-89 20-20 129-170/70-100 94-98 - Lab 09/10/16 06:13 09/10/16 06:13 Most recent lab results Calcium 6.9 MG/DL (8.5-10.1) L 09/10/16 06:13 Magnesium 1.8 MG/DL (1.8-2.4) 09/06/16 05:49 Assessment and Plan (1) End stage renal disease Status: Acute Assessment and plan: This patient is demonstrating signs of uremia with nausea and vomiting she is also having diarrhea which may be secondary to bowel wall edema. The patient's creatinine is around 4.7 mg/dL despite this lowish creatinine think the patient would be better off on dialysis at this point and will ultimately feel better with this therapy. We will ask surgery to place a dialysis catheter and placed in a timely fashion today we will initiate dialysis today and tomorrow Current Visit: Yes (2) Diabetic nephropathy Status: Acute Current Visit: Yes (3) DM2 (diabetes mellitus, type 2) Status: Acute Assessment and plan: Patient has been having some hypoglycemic episodes I agree with sliding scale insulin coverage Current Visit: Yes Qualifiers: Diabetes mellitus complication status: with kidney complications Diabetes mellitus complication detail: with nephropathy (4) Diarrhea Status: Acute Current Visit: Yes (5) Gastroenteritis Status: Acute Assessment and plan: This patient has been having nausea and vomiting as well as diarrhea the past few days, this may be a combination of a gastroenteritis uremia and bowel wall edema as well as some diabetic gastroparesis. Hopefully this will improve as we dialyze her and her kidney function draws parents allowing her to retain some of the albumin that her body produces. Current Visit: Yes (6) Hypertension Status: Chronic Current Visit: No (7) Peripheral edema Status: Chronic Current Visit: No (8) Hypoglycemia associated with type 2 diabetes mellitus Status: Resolved Current Visit: No (9) Hypokalemia Status: Acute Assessment and plan: This has improved with IV fluid replacement Current Visit: Yes (10) Anemia Status: Acute Assessment and plan: I will start the patient on EPO and will check iron stores Current Visit: No Qualifiers: Anemia type: unspecified type Qualified Code(s): D64.9 - Anemia, unspecified (11) Hypoalbuminemia Status: Acute Current Visit: No Specialty Discharge - Follow Up or Referrals Follow up with: Alexis Emery MD [Physician] - 2 Weeks (with vein mapping)
[2016-09-10 13:05] VITALS: BP 122/62
--- NOTE | 2016-09-10 13:08 | Discharge Summary ---
Hospital Course - Hospital Course Hospital Course: Mrs. Umaña was admitted for evaluation of nausea vomiting and diarrhea. Patient had acute kidney injury on chronic kidney disease. She was admitted and hydrated. Stool studies were negative for C. difficile and stool culture. She was seen in consultation by nephrology and surgery who had a right internal jugular vein tunneled hemodialysis catheter placed. She was initiated on hemodialysis. She remained hospitalized for further management of her hypertension which was optimally controlled by discharge. By discharge she had met maximum benefit of hospitalization. I spent 35 minutes coordinating this discharge. - Time spent with patient Time with patient DS: Greater than 30 minutes Diagnosis - Discharge Diagnosis (1) Hypertension Status: Chronic (2) DM2 (diabetes mellitus, type 2) Status: Acute (3) End stage renal disease Status: Acute Specialty Discharge - Follow Up or Referrals Follow up with: Alexis Emery MD [Physician] - 2 Weeks (with vein mapping) Discharge Plan - Discharge Data Disposition: Disch To Home/Self Care Condition at Discharge: Stable Discharge Diet: advance to your usual diet Activity: resume usual activities as tolerated - Discharge Medications New amLODIPine [Norvasc] 10 mg PO DAILY #30 tablet hydrALAZINE TAB [Apresoline Tab] 50 mg PO BID #60 tablet Continue Pravastatin [Pravachol] 40 mg PO BEDTIME Gabapentin 300 mg PO TID Carvedilol [Coreg] 25 mg PO BID #60 tablet Furosemide Tab [Lasix Tab] 160 mg PO BID DIURETIC #120 tablet Insulin Glargine [Lantus] 30 unit SUBCUT QAM Discontinued hydrALAZINE TAB [Apresoline Tab] 25 mg PO BID Lisinopril/Hctz 20-25 [Prinzide 20-25] 1 tablet PO QAM - Follow Up or Referral Follow Up: Alexis Emery MD [Physician] - 2 Weeks (with vein mapping) - Forms/Instructions Exam - Constitutional Vitals: Period Temp Pulse Resp BP Sys/Encarnacion Pulse Ox Last 24 Hr 98.0 F-99.4 F 76-89 20-20 122-170/62-100 94-98 General appearance: normal weight, no acute distress - Head Head exam: Present: normal inspection, normocephalic, atraumatic - Eye Eye exam: Present: EOMI Pupils: Present: JOLYNN - ENT ENT exam: Present: normal exam - Neck Neck exam: Present: normal inspection - Respiratory Respiratory exam: Present: clear to auscultation bilaterally. Absent: accessory muscle use, prolonged expiratory phase, wheezes - Cardiovascular Cardiovascular exam: Present: regular rate and rhythm. Absent: bradycardia, irregular rhythm, systolic murmur - GI/Abdominal GI/Abdominal exam: Present: normal bowel sounds. Absent: ascites, distended, hypoactive bowel sounds, tenderness - Extremities Exam Extremities exam: Present: normal inspection Discharge Results Procedures and tests throughout hospitalization: Pending Orders 09/10/16 07:40 Urinalysis Routine Labs on day of discharge: Labs from last 24 hours 09/10/16 09/10/16 09/10/16 11:29 09:26 07:27 WBC RBC Hgb Hct MCV MCH MCHC RDW Plt Count MPV Neut % (Auto) Lymph % (Auto) Page % (Auto) Eos % (Auto) Baso % (Auto) Neut # (Auto) Lymph # (Auto) Page # (Auto) Eos # (Auto) Baso # (Auto) Immature Gran % Nucleated RBC % Immature Gran # Nucleated RBCs # Sodium Potassium Chloride Carbon Dioxide Anion Gap BUN Creatinine GFR Calculation BUN/Creatinine Ratio Glucose POC Glucose 215 H 216 H 56 L Calculated Osmolality Calcium 09/10/16 09/10/16 09/09/16 06:13 06:13 20:06 WBC 6.5 RBC 3.01 L Hgb 8.6 L Hct 26.8 L MCV 89.0 MCH 29 MCHC 32.1 RDW 13.2 Plt Count 188 MPV 10.4 Neut % (Auto) 50.8 Lymph % (Auto) 41.8 Page % (Auto) 4.9 Eos % (Auto) 1.7 Baso % (Auto) 0.2 Neut # (Auto) 3.3 Lymph # (Auto) 2.7 Page # (Auto) 0.3 Eos # (Auto) 0.1 Baso # (Auto) 0.0 Immature Gran % 0.6 Nucleated RBC % 0.5 Immature Gran # 0.04 Nucleated RBCs # 0.03 Sodium 146 H Potassium 3.6 Chloride 110 H Carbon Dioxide 28 Anion Gap 11.6 BUN 24 H Creatinine 3.60 H GFR Calculation 18 BUN/Creatinine Ratio 6.00 Glucose 71 L POC Glucose 190 H Calculated Osmolality 291.6 Calcium 6.9 L 09/09/16 09/09/16 15:28 14:14 WBC RBC Hgb Hct MCV MCH MCHC RDW Plt Count MPV Neut % (Auto) Lymph % (Auto) Page % (Auto) Eos % (Auto) Baso % (Auto) Neut # (Auto) Lymph # (Auto) Page # (Auto) Eos # (Auto) Baso # (Auto) Immature Gran % Nucleated RBC % Immature Gran # Nucleated RBCs # Sodium Potassium Chloride Carbon Dioxide Anion Gap BUN Creatinine GFR Calculation BUN/Creatinine Ratio Glucose POC Glucose 148 H 187 H Calculated Osmolality Calcium DS: Provider Date of admission: 09/05/16 17:38 Primary care physician: . No PCP Attending physician on admission: Reza Cartagena MD Consults: 09/06/16 08:36 Consult to Physician [CONS] Routine Comment: Consulting Provider: Alexis Emery Consult to Specialist Group: Surgery Person Notified: JULISA LARSEN) Date Notified: 09/06/16 Time Notified: 08:43 Consult Notification Comment: DR KNIGHT [employer] BUT DOES NOT DO HD CATHETERS AND SO DR CHAU ASKED FOR CHARMAINE 09/06/16 08:56 Consult to Case Mgmt/Social Srvs [CONS] Routine Reason for Case Mgmt/Social Srvs: Dialysis Discharging clinician: Mayra Brown MD Expected date of discharge: 09/10/16
[2016-09-10] MEDS: diphenhydrAMINE CAP 25 MG CAPSULE PO PRN (14:56)
== END 2016-09-10 15:05 | disposition home or self-care (01) | DRG 683 ==
LOC: N.ED 12:58 → SUATTDRO 17:38 → N.EDINP 17:38 → N.2E 20:04
PROVIDERS: ADMIT Internal Medicine; ATTEND Internal Medicine

== ENCOUNTER 2016-10-16 13:44 | Inpatient (IN) ==
--- NOTE | 2016-10-16 14:34 | Emergency Department Note ---
Katy Edwards Gwan, am scribing for, and in the presence of, Caleb Thompson MD 14:07 . Donna Edwards James D, MD, personally performed the services described in this documentation, ascribed by Jared Burns in my presence, and it is both accurate and complete 434 . Arrival - Arrival Chief Complaint: Altered Mental Status Stated Complaint: altered mental status ED Nursing Triage Note: Altered mental status onset this am - family states that she has some episodes of nausea and vomiting - pt is a dialysis pt and states that she had her last dialysis yesterday Mode of Arrival: Ambulatory Limitations: No Limitations Source: Patient, Old Records Reviewed, RN Notes Reviewed - History of Present Illness HPI Narrative: Patient is a 41 y/o female who presents to the ED for further evaluation of AMS. Family confirmed that pt has been confused intermittently for the past 3 years. Patient has a c/o abd pain, chills, subjective fever, vaginal discharge and dysuria with an onset 3 days ago. At time of triage, pt's temperature was 99.1. She confirmed that she voids 2-3 times per day and that she goes to dialysis Fri//Fri. Patient is followed by Dr. Tinoco. During exam, pt was very tearful and showed obvious signs of discomfort. Onset (ago): day(s) Consistency: constant Severity: moderate Allergies/Adverse Reactions: Allergies Allergy/AdvReac Type Severity Reaction Status Date / Time No Known Allergies Allergy Verified 03/22/16 03:54 Home Medications: Home Medications Medication Instructions Recorded Confirmed Type Pravastatin [Pravachol] 40 mg PO BEDTIME 12/21/14 09/05/16 History Gabapentin 300 mg PO TID 03/05/16 09/05/16 History Carvedilol [Coreg] 25 mg PO BID #60 tablet 03/09/16 09/05/16 Rx Furosemide Tab [Lasix Tab] 160 mg PO BID DIURETIC #120 tablet 03/27/16 09/05/16 Rx Insulin Glargine [Lantus] 30 unit SUBCUT QAM 07/17/16 09/05/16 History amLODIPine [Norvasc] 10 mg PO DAILY #30 tablet 09/10/16 Rx hydrALAZINE TAB [Apresoline Tab] 50 mg PO BID #60 tablet 09/10/16 Rx Review of System - Review of System 12 point system: reviewed and no additional remarkable complaints except as stated - Review of System Constitutional: Present: as per HPI, fever. Absent: chills Eyes: Absent: discharge, pain Head/Ears/Nose/Throat: Absent: earache Respiratory: Absent: cough Cardiovascular: Absent: chest pain, palpitations Gastrointestinal: Present: as per HPI, abdominal pain Genitourinary female: Absent: dysuria Musculoskeletal: Absent: arm pain, back pain, leg pain, neck pain Skin: Absent: rash, lesions Medical,Surgical,& Family Hx - Medical History Cardio: History of: Hypertension No history of: Aneurysm, Cardiac Dysrhythmia, Cerebrovascular Disease, Congenital Heart Disease, CHF, CAD, [place], Pacemaker, PVD, Valvular Heart Disease, Cardiovascular Problems Psychological: History of: Anxiety Disorders, Depression No history of: ADHD, Behavior Problems, Bipolar Disorder, Previous Suicide Attempt, Psychiatric/Substance Abuse Tx, Schizophrenia, Violent Behavior, Psychiatric Problems Neurology: No history of: Brain Aneurysm, Cerebral Hemorrhage, Cerebrovascular Accident , Cerebral Palsy, Dementia, Migraine, Multiple Sclerosis, Parkinson's Disease, Peripheral Neuropathy, Seizures, TIA, Vertigo, Neurologocal Cancer HEENT: No history of: Ear Problem, Eye Problem, Dental Problems, Glaucoma, Oral Cancer, HEENT Problems Endocrine: History of: Diabetes Mellitus (IDDM), Dyslipidemia No history of: Adrenal Disease, Diabetes Mellitus (NIDDM), Thyroid Disorder, Endocrine Cancer, Endocrine Problems Rheumatology: No history of;: Fibromyalgia, Gout, Myasthenia Gravis, Psoriasis, Rheumatoid Arthritis, Sjogrens, Systemic Lupus Erythematosus, Rheumatological Problems Respiratory: No history of: Asthma, Bronchitis, COPD, Intubation, Obstructive Sleep Apnea , Pulmonary Embolism, Pulmonary Hypertension, Pneumonia, Lung Cancer, Respiratory Problems Renal: History of: Dialysis (Sees Dr. Tinoco, needs to start dialysis in a few weeks), Renal Problems (CKD) No history of: Renal (Kidney) Cancer, Renal Failure Genitourinary: No history of: Bladder Problem, Kidney Stones, Recurring Urinary Tract Infections, Genitourinary Cancer, Problems Gastrointestinal: No history of: Bowel Obstruction, Clostridium Difficile, Crohn's Disease, Diverticulitis/ Diverticulosis, Esophageal Varices, GERD, Gastrointestinal Bleed , Hemorrhoids, Hematochezia, Hepatitis, Liver Problems, Pancreatitis, Polyps, Ulcerative Colitis, Gastrointestinal Cancer, GI Problems Musculoskeletal: No history of: Amputation, Back/Neck Problems, Degenerative Disk Disease, Herniated Disk, Osteoporosis, Musculoskeletal Cancer, Musculoskeletal Problems Hematology: No history of: Anemia, Blood Transfusion Reaction, Bleeding Problems, Clotting Problems, Sickle Cell Disease, Hematologic Cancer, Blood Disorders Reproductive: History of: Reproductive Problems (pt. having abn. vag bleed/ was given depo recently [facility]ke[facility] pt.) No history of: Abnormal Pap Smear, Breast Cancer, Endometriosis, Ectopic , Ovarian Cysts, Complication, Sexually Transmitted Disorders , Reproductive Cancer Other: No history of: Anesthesia Reactions, Anaphylaxis, Cancer, Eczema, HIV, Malignant Hyperthermia, MRSA, Vancomycin-Resistant Enterococci, Skin Problems, Miscellaneous Medical Problems - Surgical History Cardiac Surgeries: Patient Denies: Femoral-Popliteal Bypass Graft, Cardiac Catheterization, Cardiac Surgery, Carotid Endarterectomy, Internal Defibrillator, Vascular Access Devices Thoracic Surgeries: Patient denies;: Kidney (Renal Surgery), Lithotripsy, Nephrectomy, Organ Transplant, Lobectomy Neurologic Surgeries: Patient denies: Brain Aneurysm, Cerebral Hemorrhage, Neurologic Surgery HEENT Surgeries: Patient denies: Carotid Endarterectomy, Eye Surgery, Thyroid Surgery, Tonsilectomy & Adenoidectomy Abdominal Surgeries: Patient denies: Abdominal Surgery, Appendectomy, Cholecystectomy, Colonoscopy , Gastric Bypass Surgery, EGD, Hernia Repair, Splenectomy Reproductive Surgeries: Surgical HX of;: Section, Tubal Ligation Patient denies;: Breast Surgery, Cystoscopy, Dilation and Curettage, Genitourinary Surgery, Gynecologic Surgery, Hysterectomy Orthopedic Surgeries: Patient denies;: Implanted Devices, Orthopedic Surgery, Spinal Surgery, Total Hip Replacement, Total Knee Replacement - Family History Family History: Reports;: Family Diabetes (father mother sister), Family Heart Disease (father), Family Hypertension (father), Family Stroke (mother) Denies;: Family Anesthesia Reaction, Family Cancer (neice kidney ca), Family Psychiatric Problems - Social History Smoking Status: Former smoker Frequency of Alcohol Use: None Type of Drug Use: None Exam Physical Examination: GENERAL: This is a black female in no apparent distress. VITAL SIGNS: HEENT: Head is normocephalic and atraumatic. Pupils are equally round and reactive to light. Extraocular movement are intact. Oropharynx is benign with moist mucous membranes. NECK: Neck is soft and supple without tenderness. There are no masses. There is no lymphadenopathy. LUNGS: Lungs are clear to auscultation bilaterally. Chest rises symmetrically. There is no chest wall tenderness. CV: Heart is regular rate and rhythm without murmurs, rubs, or gallops. ABDOMEN: Abdomen is soft, non-tender to palpation. There are no abnormal masses palpated. There is no organomegaly. Bowel sounds are present and active. SKIN: Skin is warm and dry. No rash. EXTREMITIES: Patient has full range of motion without tenderness. There is no pedal edema. NEUROLOGIC: Awake, alert, and oriented x4. Cranial nerves II through XII are grossly intact. There are no motorsensory deficits. PSYCHIATRIC: Normal affect. Normal mood. Vital Signs: Vital Signs Temperature 99.1 F 10/16/16 14:16 Pulse Rate 96 H 10/16/16 14:16 Respiratory Rate 20 10/16/16 14:16 Blood Pressure 207/84 10/16/16 14:16 O2 Sat by Pulse Oximetry 96 10/16/16 13:53 Results - Labs CBC & BMP: 10/16/16 14:37 10/16/16 14:37 Lab Results: I have reviewed the patients labs Labs: Laboratory Tests 10/16/16 14:37 WBC 6.7 RBC 3.49 L Hgb 10.6 L Hct 31.5 L Plt Count 261 MPV 9.1 L Laboratory Tests 10/16/16 10/16/16 10/16/16 14:37 14:37 14:37 WBC 6.7 RBC 3.49 L Hgb 10.6 L Hct 31.5 L Plt Count 261 MPV 9.1 L Sodium 143 Potassium 2.9 L Chloride 100 Carbon Dioxide 36 H BUN 16 Creatinine 3.70 H BUN/Creatinine Ratio 4.00 L Glucose 165 H Calcium 7.4 L Total Protein 4.3 L Albumin 1.3 L Albumin/Globulin Ratio 0.4 L Lipase 72.0 L Serum Alcohol < 15 L Laboratory Tests 10/16/16 10/16/16 15:25 15:25 Urine pH 7.0 Ur Specific [place] 1.036 H Urine Protein 100 Urine Glucose (UA) 50 Urine Urobilinogen < 2.0 H Urine Leukocytes Small H Urine RBC 61 Urine WBC 2564 Urine Opiates Screen Positive H Ur Barbiturates Screen Negative Ur Phencyclidine Scrn Negative U Amphetamine/Methamph Negative U Benzodiazepines Scrn Negative U Cocaine Metab Screen Negative U Cannabinoids Screen Negative - Diagnostic Findings Procedure: CT Abdomen and Pelvis: image reviewed by me (No acute intra- abdominal pathology), CT: image reviewed by me (CT head: No acute intracranial lesions or hemorrhage.) Disposition Clinical Impression: UTI (urinary tract infection), End stage renal disease on dialysis, Altered mental status Case discussed with: patient, patient's family Disposition: Still a Patient Condition: Stable Time of Disposition: 15:30
[2016-10-16 14:45] LABS: Basophils % 0.1 % (0.0-0.8); Eosinophils # 0.1 10*3/uL (0.0-0.87); Eosinophils % 1.3 % (0.00-10.9); Hematocrit 31.5 VOL% (35.7-47.0); Hemoglobin 10.6 GM/DL (12.0-16.0); Immature Granulocytes % 0.4 %; Immature Granulocytes Absolute 0.03 #; Lymphocytes # 1.5 10*3/uL (1.4-4.0); Lymphocytes % 22.7 % (21.3-54.2); Mean Corpuscular HGB Conc 33.7 GM/DL (32-36); Mean Corpuscular Hemoglobin 30 PG (27-34); Mean Corpuscular Volume 90.3 FL (87-102); Mean Platelet Volume 9.1 FL (9.6-12.0); Monocytes # 0.3 10*3/uL (0.11-0.8); Monocytes % 4.8 % (1.7-12.7); Neutrophils # 4.7 10*3/uL (1.4-7.4); Neutrophils % 70.7 % (38.7-73.9); Platelet Count 261 T/CUMM (130-400); Red Blood Count 3.49 MC/CUMM (3.8-5.5); Red Cell Distribution Width 14.3 % (9.3-17.3); White Blood Count 6.7 T/CUMM (4-12)
--- NOTE | 2016-10-16 15:01 | CT Report ---
Referring physician: Caleb Thompson Exam: CT brain without contrast Date: 10/16/2016 Comparison: None Reason: Alteration of consciousness Technique: Axial images of the head were obtained without the use of contrast. Total DLP was 970.10 mGy*cm. Findings: No hydrocephalus or midline shift is present. There is no evidence of an acute infarction, recent intracranial hemorrhage or abnormal mass effect. The osseous structures appear intact. The mastoid air cells are clear. Persistent minimal mucosal thickening in the visualized paranasal sinuses. Impression: No acute intracranial abnormality is identified. Minimal chronic sinusitis. The CT exam was performed using one or more of the following dose reduction techniques: Automated exposure control and adjustment of the mA and/or kV according to patient size. PROCEDURE INTERPRETED AT [facility] DEPARTMENT OF RADIOLOGY Final Report Signed by: Dr. Joanne Conley
--- NOTE | 2016-10-16 15:06 | CT Report ---
CT abdomen pelvis wo con Indication: Abdominal and pelvic pain. CT ABDOMEN AND PELVIS WITHOUT CONTRAST DLP: 715 mGy*cm. One or more of the following dose reduction techniques was used: Automated exposure control, adjustment of the mA and/or kV according the patient size, or use of iterative reconstruction techniques. Comparison: 03/05/2016. Technique: Axial noncontrast CT images of the abdomen and pelvis were obtained. Abdomen: Tiny left pleural effusion is present, larger than previous. Bibasilar atelectasis with rounded atelectasis at the left lung base noted. Normal heart size. Pacemaker or dialysis catheters present. Unenhanced liver, gallbladder, spleen, adrenal glands and pancreas appear unremarkable. Diffuse anasarca noted. There are no renal calculi. Unenhanced kidneys appear unremarkable and normal in size. No bowel obstruction. Pelvis: Urinary bladder is somewhat contracted but does have a thick walled appearance. Uterus and adnexal structures are within normal limits absent contrast. Rectosigmoid colon is unremarkable. Very small amount of ascites noted in the deep pelvis. Sclerotic changes of posterior SI joints are stable since previous exam. Impression: 1. Very small left pleural effusion, new since 2016. Diffuse anasarca, trace ascites in the pelvis and body wall edema, all consistent with fluid overload. 2. Bibasilar atelectasis. Rounded atelectasis posterolateral left lung base. 3. Thick-walled urinary bladder. PROCEDURE INTERPRETED AT [facility] DEPARTMENT OF RADIOLOGY Final Report Signed by: Haresh Whipple M.D.
[2016-10-16 15:15] LABS: Alanine Aminotransferase 17 U/L (13-56); Albumin 1.3 G/DL (3.4-5.0); Alkaline Phosphatase 95 U/L (45-117); Aspartate Amino Transferase 19 U/L (0-37); Bilirubin,Total < 0.39 MG/DL (0.2-1.0); Blood Urea Nitrogen 16 MG/DL (7-18); Calcium 7.4 MG/DL (8.5-10.1); Glucose 165 MG/DL (74-106); Potassium 2.9 MMOL/L (3.5-5.1); Sodium 143 MMOL/L (136-145); Total Protein 4.3 G/DL (6.4-8.3)
--- NOTE | 2016-10-16 15:17 | XRay Report ---
2 view abdomen. Indication: Generalized abdominal pain. There is a dual-lumen catheter in place on the right, with its distal tip at the junction of the SVC and right atrium. There is atelectasis present at the left lung base, not seen previously. The liver is borderline enlarged. No splenic enlargement is suggested. There are air-fluid levels present within small intestine, and the small intestine is moderately distended. Gas and fecal material are seen within the colon to the level of the rectum. The degree of gaseous distention of bowel has progressed since September. Numerous phleboliths are present within the lower abdomen and pelvis. The osseous structures are stable. Impression: Development of left basilar atelectasis. Gaseous distention of small intestine with scattered air-fluid levels. PROCEDURE INTERPRETED AT [facility] DEPARTMENT OF RADIOLOGY Final Report Signed by: Dr. Angelina Armijo
[2016-10-16] MEDS ORDERED: cefTRIAXone 1,000 MG in SODIUM CHLORIDE 0.9% 100 ML IV STA (15:21)
--- NOTE | 2016-10-16 15:26 | XRay Report ---
Portable chest. Indication: Shortness of breath. Abdominal pain. The heart is normal in size. Atelectasis has developed at the left lung base. A dual-lumen catheter is in satisfactory position. No pneumothorax. No pleural effusion. No osseous abnormality. Impression: Development of left basilar atelectasis. PROCEDURE INTERPRETED AT [facility] DEPARTMENT OF RADIOLOGY Final Report Signed by: Dr. Angelina Armijo
[2016-10-16 15:55] LABS: Apearance,Urine CLOUDY (Clear); Bilirubin,Urine Negative (Negative); Blood, Urine Negative (Negative); Glucose,Urine (UA) 50 mg/dL (Negative); Ketones,Urine Negative (Negative); Nitrite,Urine Negative (Negative); Protein,Urine 100 MG/DL; RBC,Urine 61 /HPF (0-4); Urine Color Yellow (Yellow); Urine Specific Gravity 1.036 (1.001-1.035); Urine Urobilinogen < 2.0 EU/DL (0.2-1.0); WBC,Urine 2564 /HPF (0-6)
[2016-10-16 16:02] LABS: Barbiturates Screen,Urine Negative (Negative); Benzodiazepines Screen,Urine Negative (Negative); Cannabinoid Screen,Urine Negative (Negative); Opiate Screen,Urine Positive (Negative); Phencyclidine Screen,Urine Negative (Negative)
[2016-10-16] MEDS ORDERED: cefTRIAXone 1,000 MG VIAL ONE (16:17)
--- NOTE | 2016-10-16 16:32 | Hospitalist History & Physical ---
<Bridget Swenson - Last Filed: 10/16/16 16:29> Assessment and Plan - Time spent with patient Time spent with patient: Greater than 30 minutes (1) Diabetes mellitus Status: Chronic Assessment and plan: Ms. Argueta is a 41-year-old -[place] female with history of diabetes , hypertension, end-stage renal disease on HD admitted by the hospitalist service with altered mental status due to UTI. Patient was also found to be hypokalemic. She will be started on antibiotics pain and nausea control. Will consult Dr. Tinoco her accounting tutor for her dialysis needs. She does dialyze on Friday. Her lactic acid has been ordered but has not returned yet. We will also restart her home medicines. Dr. Jensen will see and examined patient and further recommendations to follow. Current Visit: No Qualifiers: Diabetes mellitus type: type 2 Diabetes mellitus complication status: with kidney complications Chronic kidney disease stage: stage 4 (severe) (2) UTI (urinary tract infection) Status: Acute Current Visit: No Qualifiers: Urinary tract infection type: acute cystitis Hematuria presence: without hematuria Qualified Code(s): N30.00 - Acute cystitis without hematuria (3) Hypertension Status: Chronic Current Visit: No (4) Hypertension Status: Acute Current Visit: No (5) End stage renal disease on dialysis Status: Acute Current Visit: Yes History of Present Illness Chief complaint: Abdominal and flank pain History of present illness: Ms. Kerns is a 41 year old -[place] female with history of hypertension, diabetes, end-stage renal disease on HD presenting to the ED with 1 day history of abdominal and flank pain, sweating and chills, and altered mental status. Patient states her abdomen started hurting yesterday and she started feeling bad and she woke up this morning worse. She states she has been sweating alternating with chills with no reported fevers. She states her abdomen is hurting and it radiates around to the right flank. Patient denies headache, shortness of breath, chest pain, constipation or diarrhea, or lower extremity edema. Patient's accounting tutor is Dr. Tinoco. Her head CT is negative for acute process. CT of the abdomen and pelvis show small left pleural effusion is the same since 2016. She has diffuse anasarca and trace ascites in the pelvis and body wall edema. She has bibasilar basilar atelectasis. And a thick-walled urinary bladder. She has a low-grade fever and is hypertensive with blood pressure 207/84. Her white count is normal, potassium is low at 2.9 , blood sugars 165, UA with leukocytes but according to the nurses there was purulence in drainage catheter. After discussion with Dr. Thompson the ED physician and Dr. Jensen the hospitalist, it was agreed patient will be admitted for further evaluation. Home Medications Medication Instructions Recorded Confirmed Type Gabapentin 300 mg PO DAILY 03/05/16 10/16/16 History Insulin Glargine [Lantus] 30 unit SUBCUT QAM 07/17/16 10/16/16 History amLODIPine [Norvasc] 10 mg PO DAILY #30 tablet 09/10/16 10/16/16 Rx hydrALAZINE TAB [Apresoline Tab] 50 mg PO BID #60 tablet 09/10/16 10/16/16 Rx Allergies Allergy/AdvReac Type Severity Reaction Status Date / Time No Known Allergies Allergy Verified 03/22/16 03:54 Medical,Surgical,& Family Hx - Medical History Cardio: History of: Hypertension No history of: Aneurysm, Cardiac Dysrhythmia, Cerebrovascular Disease, Congenital Heart Disease, CHF, CAD, [place], Pacemaker, PVD, Valvular Heart Disease, Cardiovascular Problems Psychological: History of: Anxiety Disorders, Depression No history of: ADHD, Behavior Problems, Bipolar Disorder, Previous Suicide Attempt, Psychiatric/Substance Abuse Tx, Schizophrenia, Violent Behavior, Psychiatric Problems Neurology: No history of: Brain Aneurysm, Cerebral Hemorrhage, Cerebrovascular Accident , Cerebral Palsy, Dementia, Migraine, Multiple Sclerosis, Parkinson's Disease, Peripheral Neuropathy, Seizures, TIA, Vertigo, Neurologocal Cancer HEENT: No history of: Ear Problem, Eye Problem, Dental Problems, Glaucoma, Oral Cancer, HEENT Problems Endocrine: History of: Diabetes Mellitus (IDDM), Dyslipidemia No history of: Adrenal Disease, Diabetes Mellitus (NIDDM), Thyroid Disorder, Endocrine Cancer, Endocrine Problems Rheumatology: No history of;: Fibromyalgia, Gout, Myasthenia Gravis, Psoriasis, Rheumatoid Arthritis, Sjogrens, Systemic Lupus Erythematosus, Rheumatological Problems Respiratory: No history of: Asthma, Bronchitis, COPD, Intubation, Obstructive Sleep Apnea , Pulmonary Embolism, Pulmonary Hypertension, Pneumonia, Lung Cancer, Respiratory Problems Renal: History of: Dialysis (Sees Dr. Tinoco, needs to start dialysis in a few weeks), Renal Problems (CKD) No history of: Renal (Kidney) Cancer, Renal Failure Genitourinary: No history of: Bladder Problem, Kidney Stones, Recurring Urinary Tract Infections, Genitourinary Cancer, Problems Gastrointestinal: No history of: Bowel Obstruction, Clostridium Difficile, Crohn's Disease, Diverticulitis/ Diverticulosis, Esophageal Varices, GERD, Gastrointestinal Bleed , Hemorrhoids, Hematochezia, Hepatitis, Liver Problems, Pancreatitis, Polyps, Ulcerative Colitis, Gastrointestinal Cancer, GI Problems Musculoskeletal: No history of: Amputation, Back/Neck Problems, Degenerative Disk Disease, Herniated Disk, Osteoporosis, Musculoskeletal Cancer, Musculoskeletal Problems Hematology: No history of: Anemia, Blood Transfusion Reaction, Bleeding Problems, Clotting Problems, Sickle Cell Disease, Hematologic Cancer, Blood Disorders Reproductive: History of: Reproductive Problems (pt. having abn. vag bleed/ was given depo recently Mckeiver pt.) No history of: Abnormal Pap Smear, Breast Cancer, Endometriosis, Ectopic , Ovarian Cysts, Complication, Sexually Transmitted Disorders , Reproductive Cancer Other: No history of: Anesthesia Reactions, Anaphylaxis, Cancer, Eczema, HIV, Malignant Hyperthermia, MRSA, Vancomycin-Resistant Enterococci, Skin Problems, Miscellaneous Medical Problems - Surgical History Cardiac Surgeries: Patient Denies: Femoral-Popliteal Bypass Graft, Cardiac Catheterization, Cardiac Surgery, Carotid Endarterectomy, Internal Defibrillator, Vascular Access Devices Thoracic Surgeries: Patient denies;: Kidney (Renal Surgery), Lithotripsy, Nephrectomy, Organ Transplant, Lobectomy Neurologic Surgeries: Patient denies: Brain Aneurysm, Cerebral Hemorrhage, Neurologic Surgery HEENT Surgeries: Patient denies: Carotid Endarterectomy, Eye Surgery, Thyroid Surgery, Tonsilectomy & Adenoidectomy Abdominal Surgeries: Patient denies: Abdominal Surgery, Appendectomy, Cholecystectomy, Colonoscopy , Gastric Bypass Surgery, EGD, Hernia Repair, Splenectomy Reproductive Surgeries: Surgical HX of;: Section, Tubal Ligation Patient denies;: Breast Surgery, Cystoscopy, Dilation and Curettage, Genitourinary Surgery, Gynecologic Surgery, Hysterectomy Orthopedic Surgeries: Patient denies;: Implanted Devices, Orthopedic Surgery, Spinal Surgery, Total Hip Replacement, Total Knee Replacement - Family History Family History: Reports;: Family Diabetes (father mother sister), Family Heart Disease (father), Family Hypertension (father), Family Stroke (mother) Denies;: Family Anesthesia Reaction, Family Cancer (neice kidney ca), Family Psychiatric Problems - Social History Smoking Status: Former smoker Frequency of Alcohol Use: None Type of Drug Use: None Marital Status: Lives With:: Spouse Functional capacity: independent ambulation Review of systems: Complete 10 system review of systems was obtained and pertinent positives and negatives per HPI Exam - Constitutional Vitals: Period Temp Pulse Resp BP Sys/Encarnacion Pulse Ox Last 24 Hr 99.1 F-99.1 F 96-96 20-20 207-207/84-84 96 Exam: Constitutional System: Moderate distress. No tremulousness. Head: Normocephalic, atraumatic. Ears, Nose and Throat System: No evidence of Otitis or Mastoiditis. No epistaxis or discharge Eyes System: Pupils equal, round, and reactive. Extraocular muscles intact. Neck: Supple, without adenopathy, No jugular venous distention. No thyromegaly, neck mass, or prior surgery apparent. HD catheter intact with dressing clean and dry. Still has sutures at the right neck Respiratory System: Chest clear to auscultation. Cardiovascular System: Heart with regular rate and rhythm. No murmur. GI System: Abdomen soft, tender to palpation throughout. Normo active bowel sounds present. Positive CVA tenderness on the right Musculoskeletal System: limbs with mild pedal edema. Diminished distal pulses. Neurological System: No discernable sensory deficit. No aphasia Psychiatric System: Conversation is rational Results - Labs CBC & BMP: 10/16/16 14:37 10/16/16 14:37 Lab Results: I have reviewed the past 24 hour labs - Diagnostic Findings Procedure: Abdominal x-ray: report reviewed by me (Development of left basilar atelectasis. Gaseous distention of small intestine with scattered air-fluid levels), Chest x-ray: report reviewed by me (Left basilar atelectasis), CT Abdomen and Pelvis: report reviewed by me (Small left pleural effusion new since 2016. Diffuse anasarca, trace ascites in the pelvis and body wall edema all consistent with fluid overload. Bibasilar atelectasis. Thick-walled urinary bladder), CT: report reviewed by me (CT the head with no acute intracranial abnormality) <Alayna Jensen - Last Filed: 10/16/16 17:43> History of Present Illness History of present illness: Patient seen and examined independently of PA Leela, agree with history, assessment and plan as documented. Patient admitted with altered mental status. Patient oriented x3 on my exam. Afebrile, no leukocytosis or left shift. UA with small leukocytes. UA and blood cultures pending. Exam - Constitutional Vitals: Period Temp Pulse Resp BP Sys/[place] Pulse Ox Last 24 Hr 99.1 F-99.1 F 96-96 20-20 207-207/84-84 96 Results - Labs CBC & BMP: 10/16/16 14:37 10/16/16 14:37
[2016-10-16] MEDS ORDERED: DOCUSATE SODIUM 100 MG CAPSULE PO PRN (16:53)
[2016-10-16] MEDS ORDERED: ONDANSETRON 4 MG/2 ML VIAL IV PRN (16:53)
[2016-10-16] MEDS ORDERED: guaiFENesin/DM ER 600-30 MG TABLET PO PRN (16:53)
[2016-10-16] MEDS ORDERED: DEXTROSE 50% 25 GM/50 ML VIAL IV PRN (16:53)
[2016-10-16] MEDS ORDERED: diphenhydrAMINE CAP 25 MG CAPSULE PO PRN (16:53)
[2016-10-16] MEDS ORDERED: ACETAMINOPHEN 325 MG TABLET PO PRN ×2 (16:53)
[2016-10-16] MEDS ORDERED: GLUCAGON 1 MG VIAL IM PRN (16:53)
[2016-10-16] MEDS: cefTRIAXone 2,000 MG in SODIUM CHLORIDE 0.9% 100 ML IV SCH (18:45)
[2016-10-16] MEDS ORDERED: hydrALAZINE 10 MG TABLET PO PRN (20:35)
[2016-10-16] MEDS: INSULIN REGULAR 100 UNIT/ML SUBCUT SCH (21:02)
[2016-10-16] MEDS: PANTOPRAZOLE 40 MG TABLET PO SCH (21:09)
[2016-10-16] MEDS: ENOXAPARIN 30 MG/0.3 ML SYRINGE SUBCUT SCH (21:10)
[2016-10-17] MEDS ORDERED: diphenhydrAMINE CAP 50 MG CAPSULE PO ONE (01:16)
[2016-10-17] MEDS: POTASSIUM CHLORIDE RIDER 10 MEQ in PREMIX 1 EACH IV PRN ×2 (01:28→03:01)
[2016-10-17 05:19] LABS: Basophils % 0.3 % (0.0-0.8); Eosinophils # 0.2 10*3/uL (0.0-0.87); Eosinophils % 2.5 % (0.00-10.9); Hematocrit 27.6 VOL% (35.7-47.0); Hemoglobin 9.1 GM/DL (12.0-16.0); Immature Granulocytes % 0.3 %; Immature Granulocytes Absolute 0.02 #; Lymphocytes # 3.1 10*3/uL (1.4-4.0); Lymphocytes % 47.2 % (21.3-54.2); Mean Corpuscular Hemoglobin 30 PG (27-34); Mean Corpuscular Volume 91.7 FL (87-102); Mean Platelet Volume 9.3 FL (9.6-12.0); Monocytes # 0.4 10*3/uL (0.11-0.8); Monocytes % 6.3 % (1.7-12.7); Neutrophils # 2.8 10*3/uL (1.4-7.4); Neutrophils % 43.4 % (38.7-73.9); Platelet Count 220 T/CUMM (130-400); Red Blood Count 3.01 MC/CUMM (3.8-5.5); Red Cell Distribution Width 14.2 % (9.3-17.3); White Blood Count 6.5 T/CUMM (4-12)
[2016-10-17 05:48] LABS: Calcium 7.1 MG/DL (8.5-10.1); Osmolality,Calculated 287.7 MOS/KG (273-304); Potassium 2.8 MMOL/L (3.5-5.1)
[2016-10-17 06:08] LABS: Folate 5.9 NG/ML (5.4-24.0); Vitamin B12 606 PG/ML (211-911)
--- NOTE | 2016-10-17 07:46 | EKG Report ---
Stationary ECG Study [facility] Test Date: 10/17/2016 6:46:19 AM Pat Name: CHAGO LEIJA Department: Room: 538 Gender: F [employer] Instructor: MYRIAM : 1975 Requested by: Bridget Swenson Order Number: [id number] Reading MD: LUCI THOMPSON Intervals Babb Rate: 81 P: 62 IN: 174 QRS: 7 QRSD: 83 T: 60 QT: 376 QTc: 413 Interpretive Statements SINUS RHYTHM NONSPECIFIC T-WAVE ABNORMALITY Electronically Signed On 10-18-16 14:12:38 CDT by LUCI THOMPSON [email or web address]
[2016-10-17] MEDS ORDERED: POTASSIUM CHLORIDE RIDER 10 MEQ in PREMIX 1 EACH IV PRN (08:32)
[2016-10-17] MEDS: INSULIN REGULAR 100 UNIT/ML SUBCUT SCH ×4 (08:39→20:38)
[2016-10-17] MEDS: PANTOPRAZOLE 40 MG TABLET PO SCH (09:51)
[2016-10-17] MEDS: amLODIPine 10 MG TABLET PO SCH (09:51)
--- NOTE | 2016-10-17 11:20 | CT Report ---
Exam: CT soft tissue neck without contrast Date: 10/17/2016 Reason: Right neck swelling Comparison: 10/05/2013, CT cervical spine Technique: Axial images of the facial bones were obtained without the use of contrast. Sagittal and coronal reformatted images were also acquired. Total DLP was 267.50 mGy*cm. Findings: The scans are limited by the lack of IV contrast. Minimal mucosal thickening in the visualized maxillary sinuses. No pathology is identified in the parotid glands, submandibular glands, nasopharynx, oropharynx, larynx, and thyroid gland. Venous dialysis catheter projecting in the right internal jugular vein with the tip the junction of the SVC and right atrium. Soft tissue swelling with no focal mass or definite abscess. Small left and tiny right pleural effusions with minimal groundglass opacities. Persistent reversal of normal curvature of the cervical spine. No significant lymphadenopathy is identified. Impression: Exam limited given the lack of IV contrast. Nonspecific soft tissue swelling in the neck in patient with right IJ venous dialysis catheter. Minimal maxillary sinusitis. At least small pleural effusions with minimal edema/infiltration. Limited evaluation of the lungs. This CT was performed using one or more of the following dose reduction techniques: Automatic exposure control, adjustment of the MA and/or KV according to patient size, or use of iterative reconstruction technique. PROCEDURE INTERPRETED AT [facility] DEPARTMENT OF RADIOLOGY Final Report Signed by: Dr. Joanne Conley
[2016-10-17 11:26] LABS: Hepatitis A Ab IgM Quant 0.07 Index; Hepatitis A Ab IgM Result Negative (Negative)
[2016-10-17 11:27] LABS: Hepatitis B Core IgM Quant 0.57 Index; Hepatitis B Core IgM Result Negative (Negative); Hepatitis B Surface Ag Result Negative (Negative)
[2016-10-17 12:35] LABS: HIV Antigen/Antibody Result Nonreactive (Nonreactive); Hepatitis B Surface Ag Quant 0.96 Index; Hepatitis C Virus Ab Quant < 0.02 Index; Hepatitis C Virus Ab Result Negative (Negative)
--- NOTE | 2016-10-17 13:36 | Dialysis Note ---
Dialysis Note - Dialysis Note Ms. Argueta seen during her hemodialysis. She has periorbital edema that she says is new onset since she arrived to the hospital. She is dialyzing uneventfully.
--- NOTE | 2016-10-17 13:46 | Hospitalist Progress Note ---
Assessment and Plan (1) DM2 (diabetes mellitus, type 2) Status: Acute Assessment and plan: SSI Current Visit: No Qualifiers: Diabetes mellitus complication status: with kidney complications Diabetes mellitus complication detail: with nephropathy (2) Hypertension Status: Acute Assessment and plan: Home meds Current Visit: No (3) Hypokalemia Status: Acute Assessment and plan: Replacing Current Visit: No (4) UTI (urinary tract infection) Status: Acute Assessment and plan: On rocephin UA with only small leukocytes, pus noted in urine f/u urine culture Current Visit: Yes (5) End stage renal disease on dialysis Status: Acute Assessment and plan: Nephrology managing Current Visit: Yes (6) Facial swelling Status: Acute Assessment and plan: Started yesterday after admission, improving now CT neck without signs of infection Will get dopplers of BUE Current Visit: Yes Hospitalist: Subjective Interval history: No acute events overnight. This morning patient noted facial swelling, right greater than left, she was unable to open her eye. Patient seen today on HD, reports improvement in her facial swelling since this am. Exam - Constitutional Vitals: Period Temp Pulse Resp BP Sys/Encarnacion Pulse Ox Last 24 Hr 98.1 F-99.8 F 84-96 14-20 149-207/73-98 96-100 General appearance: normal weight - Head Head exam: Present: normocephalic, atraumatic - Eye Eye exam: Present: EOMI Pupils: Present: JOLYNN - ENT ENT exam: Present: normal exam - Neck Neck exam: Present: normal inspection - Respiratory Respiratory exam: Present: clear to auscultation bilaterally. Absent: wheezes - Cardiovascular Cardiovascular exam: Present: regular rate and rhythm - GI/Abdominal GI/Abdominal exam: Present: normal bowel sounds, soft. Absent: tenderness, rebound - Extremities Exam Extremities exam: Present: normal inspection - Back Exam Back exam: Present: normal inspection - Neurological Exam Neurological exam: Present: alert, oriented X3 - Psychiatric Psychiatric exam: Present: normal affect, normal mood - Skin Skin exam: Present: warm, intact Results - Labs CBC & BMP: 10/17/16 04:42 10/17/16 06:41
--- NOTE | 2016-10-17 14:01 | Nephrology Consult Note ---
History of Present Illness Chief complaint: back pain nausea and vomiting History of present illness: Ms. Kerns is a 41 year old female who dialyzes on a Friday basis in [facility]. The patient presented to the emergency room with complaints of right back pain that radiated down her leg and across her abdomen. This pain started about 3 or 4 days prior to her admission. The patient has also had some associated fever and chills. The patient had a urinalysis that showed too numerous to count white blood cells and has had a culture grew out gram-negative bacteria from her urine. The patient has been given IV Rocephin. Her fever is improved after this although she continues to have some back pain. The patient's hospital course has been complicated by development of swelling in her face worse on the right than the left. The patient does have a right internal jugular hemodialysis catheter in place. The patient swelling in her face has decreased since yesterday. The patient has had some associated itching in the back of her neck and midportion of her back which started yesterday. ROS: Head -positive headaches ENT - denies sore throat Lymphatics - denies lymphadenopathy Hematology - denies bleeding problems Heart - denies chest pain Lungs - denies shortness of breath Abdomen -positive abdominal pain Musculoskeletal - denies arthritis Skin - denies rash Neurology - denies stroke General -positive fever PE: General: in no acute distress Eyes: Pupils are round and reactive, conjunctivae are clear ENT: Nose is clear, O/P is benign, she does have swelling in her right face and a little bit in her left as well Neck: Supple, no thyromegaly Lymphatics: No cervical, supraclavicular or axillary adenopathy Heart: Regular rate and rhythm, trace pretibial edema Lungs: Clear to auscultation anteriorly, chest expansion symmetric Abdomen: Soft, normoactive bowel sounds, no hepatomegaly Musculoskeletal: No joint erythema or effusions or joint asymmetry Skin: Normal turgor, normal hydration, no rash Neuro/Psych: Alert and cooperative with fair insight Home Medications Medication Instructions Recorded Confirmed Type Gabapentin 300 mg PO BEDTIME 03/05/16 10/16/16 History Insulin Glargine [Lantus] 30 unit SUBCUT QAM 07/17/16 10/16/16 History amLODIPine [Norvasc] 10 mg PO DAILY #30 tablet 05/09/17 06/14/17 Rx hydrALAZINE TAB [Apresoline Tab] 50 mg PO BID #60 tablet 09/10/16 10/16/16 Rx Allergies Allergy/AdvReac Type Severity Reaction Status Date / Time No Known Allergies Allergy Verified 03/22/16 03:54 Medical,Surgical,& Family Hx - Medical History Cardio: History of: Hypertension No history of: Aneurysm, Cardiac Dysrhythmia, Cerebrovascular Disease, Congenital Heart Disease, CHF, CAD, [place], Pacemaker, PVD, Valvular Heart Disease, Cardiovascular Problems Psychological: History of: Anxiety Disorders, Depression No history of: ADHD, Behavior Problems, Bipolar Disorder, Previous Suicide Attempt, Psychiatric/Substance Abuse Tx, Schizophrenia, Violent Behavior, Psychiatric Problems Neurology: No history of: Brain Aneurysm, Cerebral Hemorrhage, Cerebrovascular Accident , Cerebral Palsy, Dementia, Migraine, Multiple Sclerosis, Parkinson's Disease, Peripheral Neuropathy, Seizures, TIA, Vertigo, Neurologocal Cancer HEENT: No history of: Ear Problem, Eye Problem, Dental Problems, Glaucoma, Oral Cancer, HEENT Problems Endocrine: History of: Diabetes Mellitus (IDDM), Dyslipidemia No history of: Adrenal Disease, Diabetes Mellitus (NIDDM), Thyroid Disorder, Endocrine Cancer, Endocrine Problems Rheumatology: No history of;: Fibromyalgia, Gout, Myasthenia Gravis, Psoriasis, Rheumatoid Arthritis, Sjogrens, Systemic Lupus Erythematosus, Rheumatological Problems Respiratory: No history of: Asthma, Bronchitis, COPD, Intubation, Obstructive Sleep Apnea , Pulmonary Embolism, Pulmonary Hypertension, Pneumonia, Lung Cancer, Respiratory Problems Renal: History of: Dialysis (Sees Dr. Tinoco, needs to start dialysis in a few weeks), Renal Problems (CKD) No history of: Renal (Kidney) Cancer, Renal Failure Genitourinary: No history of: Bladder Problem, Kidney Stones, Recurring Urinary Tract Infections, Genitourinary Cancer, Problems Gastrointestinal: No history of: Bowel Obstruction, Clostridium Difficile, Crohn's Disease, Diverticulitis/ Diverticulosis, Esophageal Varices, GERD, Gastrointestinal Bleed , Hemorrhoids, Hematochezia, Hepatitis, Liver Problems, Pancreatitis, Polyps, Ulcerative Colitis, Gastrointestinal Cancer, GI Problems Musculoskeletal: No history of: Amputation, Back/Neck Problems, Degenerative Disk Disease, Herniated Disk, Osteoporosis, Musculoskeletal Cancer, Musculoskeletal Problems Hematology: No history of: Anemia, Blood Transfusion Reaction, Bleeding Problems, Clotting Problems, Sickle Cell Disease, Hematologic Cancer, Blood Disorders Reproductive: History of: Reproductive Problems (pt. having abn. vag bleed/ was given depo recently Mckeiver pt.) No history of: Abnormal Pap Smear, Breast Cancer, Endometriosis, Ectopic , Ovarian Cysts, Complication, Sexually Transmitted Disorders , Reproductive Cancer Other: No history of: Anesthesia Reactions, Anaphylaxis, Cancer, Eczema, HIV, Malignant Hyperthermia, MRSA, Vancomycin-Resistant Enterococci, Skin Problems, Miscellaneous Medical Problems - Surgical History Cardiac Surgeries: Patient Denies: Femoral-Popliteal Bypass Graft, Cardiac Catheterization, Cardiac Surgery, Carotid Endarterectomy, Internal Defibrillator, Vascular Access Devices Thoracic Surgeries: Patient denies;: Kidney (Renal Surgery), Lithotripsy, Nephrectomy, Organ Transplant, Lobectomy Neurologic Surgeries: Patient denies: Brain Aneurysm, Cerebral Hemorrhage, Neurologic Surgery HEENT Surgeries: Patient denies: Carotid Endarterectomy, Eye Surgery, Thyroid Surgery, Tonsilectomy & Adenoidectomy Abdominal Surgeries: Patient denies: Abdominal Surgery, Appendectomy, Cholecystectomy, Colonoscopy , Gastric Bypass Surgery, EGD, Hernia Repair, Splenectomy Reproductive Surgeries: Surgical HX of;: Section, Tubal Ligation Patient denies;: Breast Surgery, Cystoscopy, Dilation and Curettage, Genitourinary Surgery, Gynecologic Surgery, Hysterectomy Orthopedic Surgeries: Patient denies;: Implanted Devices, Orthopedic Surgery, Spinal Surgery, Total Hip Replacement, Total Knee Replacement - Family History Family History: Reports;: Family Diabetes (father mother sister), Family Heart Disease (father), Family Hypertension (father), Family Stroke (mother) Denies;: Family Anesthesia Reaction, Family Cancer (neice kidney ca), Family Psychiatric Problems - Social History Smoking Status: Former smoker Frequency of Alcohol Use: None Type of Drug Use: None Exam - Vital Signs Vital signs: Period Temp Pulse Resp BP Sys/Encarnacion Pulse Ox Last 24 Hr 98.1 F-99.8 F 84-96 14-20 149-207/73-98 96-100 Results - Labs CBC & BMP: 10/17/16 04:42 10/17/16 06:41 Assessment and Plan (1) End stage renal disease on dialysis Status: Acute Assessment and plan: Patient seen on hemodialysis she is tolerating this well will continue her treatment unchanged Current Visit: Yes (2) Facial swelling Status: Acute Assessment and plan: This patient may have had a reaction to her antibiotic. She was given Rocephin. This is presently being held. Other concern would be development of some clot or stenosis in her internal jugular vein related to her hemodialysis catheter. I agree with the bilateral upper extremity Dopplers. Current Visit: Yes (3) UTI (urinary tract infection) Status: Acute Assessment and plan: This patient's had gram-negative organisms grow out of her urine we can dose her with gentamicin a mg/kg to treat this if we want to avoid further dosing with Rocephin. Current Visit: Yes (4) DM2 (diabetes mellitus, type 2) Status: Acute Assessment and plan: We will monitor with sliding scale and continue the present hypoglycemic regimen Current Visit: No Qualifiers: Diabetes mellitus complication status: with kidney complications Diabetes mellitus complication detail: with nephropathy (5) Hypertension Status: Acute Assessment and plan: Continue her present antihypertensive medication Current Visit: No (6) Nausea & vomiting Status: Acute Current Visit: No
[2016-10-17] MEDS: POTASSIUM CHLORIDE 20 MEQ TABLET PO PRN ×3 (16:00→20:38)
[2016-10-17] MEDS: cefTRIAXone 2,000 MG in SODIUM CHLORIDE 0.9% 100 ML IV SCH (17:21)
[2016-10-17] MEDS: ENOXAPARIN 30 MG/0.3 ML SYRINGE SUBCUT SCH (17:21)
--- NOTE | 2016-10-17 17:32 | Ultrasound Report ---
Exam: US venous doppler UE BI Date: 10/17/2016 1:50 PM Indication: Neck pain and facial swelling Comparison: None Findings: Grayscale color flow Doppler duplex imaging was performed with spectral waveform analysis the with real-time ultrasound imaging with image stored and captured. Right internal jugular, subclavian, axillary, brachial, cephalic, basilic veins are patent with normal augmentation and compression. Normal spectral wave analysis with color-flow Left internal jugular, subclavian, axillary, brachial, cephalic, basilic veins are patent with normal augmentation and compression. Normal spectral wave analysis with color-flow. Impression: 1. No DVT in the upper extremities bilaterally. PROCEDURE INTERPRETED AT [facility] [place] DEPARTMENT OF RADIOLOGY Final Report Signed by: Dr. Mando Cuevas
[2016-10-18 05:46] LABS: Basophils % 0.5 % (0.0-0.8); Eosinophils # 0.1 10*3/uL (0.0-0.87); Eosinophils % 1.8 % (0.00-10.9); Hematocrit 29.2 VOL% (35.7-47.0); Hemoglobin 9.6 GM/DL (12.0-16.0); Immature Granulocytes % 0.7 %; Immature Granulocytes Absolute 0.04 #; Lymphocytes # 1.6 10*3/uL (1.4-4.0); Lymphocytes % 28.2 % (21.3-54.2); Mean Corpuscular HGB Conc 32.9 GM/DL (32-36); Mean Corpuscular Hemoglobin 31 PG (27-34); Mean Corpuscular Volume 92.7 FL (87-102); Mean Platelet Volume 9.5 FL (9.6-12.0); Monocytes # 0.3 10*3/uL (0.11-0.8); Monocytes % 5.3 % (1.7-12.7); Neutrophils # 3.6 10*3/uL (1.4-7.4); Neutrophils % 63.5 % (38.7-73.9); Platelet Count 230 T/CUMM (130-400); Red Blood Count 3.15 MC/CUMM (3.8-5.5); Red Cell Distribution Width 14.2 % (9.3-17.3); White Blood Count 5.7 T/CUMM (4-12)
[2016-10-18 06:14] LABS: Calcium 7.1 MG/DL (8.5-10.1); Osmolality,Calculated 288.6 MOS/KG (273-304); Potassium 3.6 MMOL/L (3.5-5.1)
[2016-10-18] MEDS ORDERED: LEVOFLOXACIN 500 MG TABLET PO ONE (09:00)
[2016-10-18] MEDS: amLODIPine 10 MG TABLET PO SCH (09:12)
[2016-10-18] MEDS: PANTOPRAZOLE 40 MG TABLET PO SCH (09:12)
[2016-10-18] MEDS: INSULIN REGULAR 100 UNIT/ML SUBCUT SCH ×4 (09:13→21:48)
[2016-10-18] MEDS ORDERED: ONDANSETRON ODT 4 MG TABLET PO PRN (09:53)
--- NOTE | 2016-10-18 11:29 | Nephrology Progress Note ---
Nephrology - PN: Subj Interval history: Patient complains of a throbbing pain in her midsternal chest area. Review of systems pulmonary she denies shortness of breath Physical exam general the patient's in no acute distress, she does have some reproducible pain with palpation around her right sternum and rib cage area Assessment/plan end-stage renal disease-we will continue hemodialysis support 2. UTI-this patient was given a single dose of Rocephin, this was stopped due to swelling that she experienced in her facial area, she has since been treated with levofloxacin 3. Diabetes mellitus 4. 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 Exam (PN)-Nephrology - Vital Signs Vital signs: Period Temp Pulse Resp BP Sys/Encarnacion Pulse Ox Last 24 Hr 97.2 F-99.4 F 92-97 16-20 148-184/62-96 97-99 - Lab 10/18/16 04:37 10/18/16 04:37 Most recent lab results Calcium 7.1 MG/DL (8.5-10.1) L 10/18/16 04:37 Magnesium 2.0 MG/DL (1.8-2.4) 10/18/16 04:37 Assessment and Plan (1) End stage renal disease on dialysis Status: Acute Assessment and plan: Patient seen on hemodialysis she is tolerating this well will continue her treatment unchanged Current Visit: Yes (2) Facial swelling Status: Acute Assessment and plan: This patient may have had a reaction to her antibiotic. She was given Rocephin. This is presently being held. Other concern would be development of some clot or stenosis in her internal jugular vein related to her hemodialysis catheter. I agree with the bilateral upper extremity Dopplers. Current Visit: Yes (3) UTI (urinary tract infection) Status: Acute Assessment and plan: This patient's had gram-negative organisms grow out of her urine we can dose her with gentamicin a mg/kg to treat this if we want to avoid further dosing with Rocephin. Current Visit: Yes (4) DM2 (diabetes mellitus, type 2) Status: Acute Assessment and plan: We will monitor with sliding scale and continue the present hypoglycemic regimen Current Visit: No Qualifiers: Diabetes mellitus complication status: with kidney complications Diabetes mellitus complication detail: with nephropathy (5) Hypertension Status: Acute Assessment and plan: Continue her present antihypertensive medication Current Visit: No (6) Nausea & vomiting Status: Acute Current Visit: No
[2016-10-18] MEDS: IBUPROFEN 400 MG TABLET PO SCH ×3 (12:54→20:36)
[2016-10-18] MEDS: MORPHINE 2 MG/1 ML SYRINGE IV PRN ×2 (13:08→20:36)
--- NOTE | 2016-10-18 13:18 | XRay Report ---
XR chest 2V Date: 10/18/2016 8:37 AM History: Follow-up, cough Comparison: 10/16/2016 Technique: PA and lateral chest Findings: The heart is normal in size with stable right IJ venous dialysis catheter. Progressive atelectasis/infiltration in the left lower lobe with small left pleural effusion. Stable mediastinum and osseous structures. Impression: Left lower lobe pneumonia with progressive atelectasis and small left pleural effusion. It is difficult to exclude additional pleural-based pathology and follow-up chest x-ray is recommended. PROCEDURE INTERPRETED AT [facility] DEPARTMENT OF RADIOLOGY Final Report Signed by: Dr. Joanne Conley
--- NOTE | 2016-10-18 16:37 | Hospitalist Progress Note ---
Assessment and Plan (1) DM2 (diabetes mellitus, type 2) Status: Acute Assessment and plan: will start lantus 10units qhs, follow response, continue with SSC -will get A1c level Current Visit: No Qualifiers: Diabetes mellitus complication status: with kidney complications Diabetes mellitus complication detail: with nephropathy (2) Hypertension Status: Chronic Assessment and plan: stable on current regime Current Visit: No (3) UTI (urinary tract infection) Status: Acute Assessment and plan: UC grew Morganella morganii sensitive to Levaquin. BC-no growth Current Visit: No Qualifiers: Urinary tract infection type: acute cystitis Hematuria presence: without hematuria Qualified Code(s): N30.00 - Acute cystitis without hematuria (4) End stage renal disease Status: Acute Assessment and plan: continue with HD. Nephrology is following Current Visit: No (5) Facial swelling Status: Acute Assessment and plan: CT neck was unremarkable. Current Visit: Yes Hospitalist: Subjective Interval history: Patient was nauseated this am. Exam - Constitutional Vitals: Period Temp Pulse Resp BP Sys/Encarnacion Pulse Ox Last 24 Hr 97.2 F-99.4 F 92-101 16-20 135-184/62-96 96-99 General appearance: no acute distress - Head Head exam: Present: normal inspection - Respiratory Respiratory exam: Present: clear to auscultation bilaterally - Cardiovascular Cardiovascular exam: Present: regular rate and rhythm - GI/Abdominal GI/Abdominal exam: Present: normal bowel sounds - Extremities Exam Extremities exam: Present: normal inspection Results - Labs CBC & BMP: 10/18/16 04:37 10/18/16 04:37 Lab Results: I have reviewed the past 24 hour labs
[2016-10-18] MEDS: ENOXAPARIN 30 MG/0.3 ML SYRINGE SUBCUT SCH (17:46)
[2016-10-18] MEDS ORDERED: GABAPENTIN 300 MG CAPSULE PO SCH (21:00)
[2016-10-18] MEDS ORDERED: INSULIN GLARGINE 100 UNIT/ML SUBCUT SCH (21:00)
[2016-10-19 04:04] LABS: Basophils % 0.5 % (0.0-0.8); Eosinophils # 0.2 10*3/uL (0.0-0.87); Eosinophils % 2.6 % (0.00-10.9); Hematocrit 27.8 VOL% (35.7-47.0); Immature Granulocytes % 0.9 %; Immature Granulocytes Absolute 0.06 #; Lymphocytes % 31.2 % (21.3-54.2); Mean Corpuscular HGB Conc 32.4 GM/DL (32-36); Mean Corpuscular Hemoglobin 30 PG (27-34); Mean Corpuscular Volume 93.6 FL (87-102); Mean Platelet Volume 9.7 FL (9.6-12.0); Monocytes # 0.4 10*3/uL (0.11-0.8); Monocytes % 5.6 % (1.7-12.7); Neutrophils # 3.8 10*3/uL (1.4-7.4); Neutrophils % 59.2 % (38.7-73.9); Platelet Count 235 T/CUMM (130-400); Red Blood Count 2.97 MC/CUMM (3.8-5.5); Red Cell Distribution Width 14.3 % (9.3-17.3); White Blood Count 6.5 T/CUMM (4-12)
[2016-10-19 04:51] LABS: Albumin 1.2 G/DL (3.4-5.0); Bilirubin,Total 0.9 MG/DL (0.2-1.0); Calcium 7.6 MG/DL (8.5-10.1); Magnesium 1.9 MG/DL (1.8-2.4); Phosphorous 2.7 MG/DL (2.5-4.9); Potassium 3.8 MMOL/L (3.5-5.1); Total Protein 3.9 G/DL (6.4-8.3)
[2016-10-19] MEDS: IBUPROFEN 200 MG TABLET PO SCH ×3 (06:38→14:59)
--- NOTE | 2016-10-19 08:50 | Dialysis Note ---
Dialysis Note - Dialysis Note Patient seen on dialysis she is tolerating the procedure. Blood pressure noted to be 210/100. Strive to remove 1.5-2 L of fluid.
[2016-10-19] MEDS ORDERED: LEVOFLOXACIN 250 MG TABLET PO SCH (09:00)
[2016-10-19] MEDS ORDERED: HEPARIN 10,000 UNIT/10 ML VIAL IV SCH (09:30)
--- NOTE | 2016-10-19 10:54 | Discharge Summary ---
<Bridget Swenson - Last Filed: 10/19/16 10:44> Hospital Course - Hospital Course Hospital Course: Ms. Kerns is a 41-year-old -[place] female with history of diabetes, hypertension, end-stage renal disease on HD admitted by the hospitalist service on 10/16/2016 with altered mental status due to UTI and hypokalemia. She was started on antibiotics and potassium supplementation. CT of the abdomen to pelvis showed small left pleural effusion with diffuse anasarca and trace ascites, bibasilar atelectasis and a thick-walled urinary bladder. Nephrology was consulted for her hemodialysis needs. Patient developed some facial swelling so CT of the neck was done without signs of infection. Venous Doppler showed no DVT in the upper extremities bilaterally. She also had some itching so her Rocephin was stopped and gentamicin was started on dialysis along with Levaquin. 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 Her blood sugars were elevated during the hospital admission and her medicines were adjusted. She had a facial swelling but CT neck was unremarkable. Today she is feeling much better and ready to go home. She is undergoing dialysis and will be discharged home later today. She will need to follow-up with her family physician in 1 week with a UA. Patient's care was coordinated with Dr. Diaz the hospitalist, Dr. Tinoco the integration software developer , patient family and nursing. Care coordination, chart review, and discharge paperwork all took approximately 38 minutes. - Time spent with patient Time with patient DS: Greater than 30 minutes Diagnosis - Discharge Diagnosis (1) Diabetes mellitus Status: Chronic (2) UTI (urinary tract infection) Status: Resolved (3) Hypertension Status: Chronic (4) End stage renal disease on dialysis Status: Chronic Discharge Plan - Discharge Data Disposition: Disch To Home/Self Care - Discharge Medications New guaiFENesin/DM ER 600-30 [Mucinex Dm 600-30 MG] 1 tablet PO BID PRN #7 tablet PRN Reason: Congestion HYDROcodone/ACETAMIN 5-325 [[place] 5-325] 1 tablet PO Q4H PRN #20 tablet PRN Reason: Pain Mild (1-3) Pantoprazole Tab [Protonix Tab] 40 mg PO DAILY #30 tablet Levofloxacin Tab [Levaquin Tab] 250 mg PO DAILY #7 tablet Continue Gabapentin 300 mg PO BEDTIME hydrALAZINE TAB [Apresoline Tab] 50 mg PO BID #60 tablet Insulin Glargine [Lantus] 30 unit SUBCUT QAM No Action amLODIPine [Norvasc] 10 mg PO DAILY #30 tablet - Follow Up or Referral - Forms/Instructions Exam - Constitutional Vitals: Period Temp Pulse Resp BP Sys/Encarnacion Pulse Ox Last 24 Hr 98.4 F-98.9 F 80-98 16-20 124-167/63-82 98-99 Discharge Results Procedures and tests throughout hospitalization: Pending Orders 10/16/16 18:06 Blood Culture Stat Labs on day of discharge: Labs from last 24 hours 10/19/16 10/19/16 10/19/16 06:29 03:29 03:29 WBC 6.5 RBC 2.97 L Hgb 9.0 L Hct 27.8 L MCV 93.6 MCH 30 MCHC 32.4 RDW 14.3 Plt Count 235 MPV 9.7 Neut % (Auto) 59.2 Lymph % (Auto) 31.2 [place] % (Auto) 5.6 Eos % (Auto) 2.6 Baso % (Auto) 0.5 Neut # (Auto) 3.8 Lymph # (Auto) 2.0 [place] # (Auto) 0.4 Eos # (Auto) 0.2 Baso # (Auto) 0.0 Immature Gran % 0.9 Nucleated RBC % 0.0 Immature Gran # 0.06 Nucleated RBCs # 0.00 Sodium 143 Potassium 3.8 Chloride 106 Carbon Dioxide 28 Anion Gap 12.8 BUN 28 H D Creatinine 4.40 H GFR Calculation 14 BUN/Creatinine Ratio 6.00 Glucose 120 H POC Glucose 227 H Hemoglobin A1c Calculated Osmolality 291.0 Calcium 7.6 L Phosphorus 2.7 Magnesium 1.9 Total Bilirubin 0.90 AST 17 ALT 13 Alkaline Phosphatase 64 Total Protein 3.9 L Albumin 1.2 L Globulin 2.7 Albumin/Globulin Ratio 0.4 L 10/18/16 10/18/16 10/18/16 21:03 17:20 11:32 WBC RBC Hgb Hct MCV MCH MCHC RDW Plt Count MPV Neut % (Auto) Lymph % (Auto) [place] % (Auto) Eos % (Auto) Baso % (Auto) Neut # (Auto) Lymph # (Auto) [place] # (Auto) Eos # (Auto) Baso # (Auto) Immature Gran % Nucleated RBC % Immature Gran # Nucleated RBCs # Sodium Potassium Chloride Carbon Dioxide Anion Gap BUN Creatinine GFR Calculation BUN/Creatinine Ratio Glucose POC Glucose 242 H 343 H 349 H Hemoglobin A1c Calculated Osmolality Calcium Phosphorus Magnesium Total Bilirubin AST ALT Alkaline Phosphatase Total Protein Albumin Globulin Albumin/Globulin Ratio 10/18/16 04:37 WBC RBC Hgb Hct MCV MCH MCHC RDW Plt Count MPV Neut % (Auto) Lymph % (Auto) [place] % (Auto) Eos % (Auto) Baso % (Auto) Neut # (Auto) Lymph # (Auto) [place] # (Auto) Eos # (Auto) Baso # (Auto) Immature Gran % Nucleated RBC % Immature Gran # Nucleated RBCs # Sodium Potassium Chloride Carbon Dioxide Anion Gap BUN Creatinine GFR Calculation BUN/Creatinine Ratio Glucose POC Glucose Hemoglobin A1c 7.7 H Calculated Osmolality Calcium Phosphorus Magnesium Total Bilirubin AST ALT Alkaline Phosphatase Total Protein Albumin Globulin Albumin/Globulin Ratio Preliminary micro results at discharge 10/16/16 18:06 Blood Culture - Preliminary Blood No growth at 1 day 10/16/16 18:13 Blood Culture - Preliminary Blood No growth at 1 day DS: Provider Date of admission: 10/16/16 15:55 Primary care physician: . Krissy PCP Attending physician on admission: Alayna Jensen MD Consults: 10/16/16 16:53 Consult to Physician [CONS] Routine Comment: pt of yours adm w uti, ams, HD TTS Consulting Provider: Haresh Tinoco Person Notified: OZ Date Notified: 10/17/16 Time Notified: 09:18 Discharging clinician: ARACELI Baig Expected date of discharge: 10/19/16 <Nasima Diaz - Last Filed: 10/19/16 12:07> Hospital Course - Time spent with patient Time with patient DS: Greater than 30 minutes (38mins) Diagnosis - Discharge Diagnosis (1) DM2 (diabetes mellitus, type 2) Status: Acute (2) Hypertension Status: Chronic (3) UTI (urinary tract infection) Status: Resolved (4) End stage renal disease Status: Acute (5) Facial swelling Status: Acute Discharge Plan - Discharge Data Condition at Discharge: Stable Discharge Diet: other (renal diet) Activity: resume usual activities as tolerated - Forms/Instructions Additional Discharge Instructions: Follow with PCP in 1week Exam - Constitutional General appearance: no acute distress - Head Head exam: Present: normal inspection - Respiratory Respiratory exam: Present: clear to auscultation bilaterally - GI/Abdominal GI/Abdominal exam: Present: normal bowel sounds - Extremities Exam Extremities exam: Present: normal inspection
[2016-10-19] MEDS: amLODIPine 10 MG TABLET PO SCH (12:41)
[2016-10-19] MEDS: INSULIN REGULAR 100 UNIT/ML SUBCUT SCH ×3 (12:42→17:02)
[2016-10-19] MEDS: PANTOPRAZOLE 40 MG TABLET PO SCH (12:45)
[2016-10-19 15:42] VITALS: BP 169/68
--- NOTE | 2016-10-19 16:41 | Ultrasound Report ---
US venous doppler UE LT Indication: Left arm swelling. Left upper extremity DVT ultrasound: Boswell scale, color Doppler and pulse Doppler interrogation left arm. Left internal jugular, subclavian, axillary, cephalic, brachial, basilic veins are all widely patent without evidence of thrombus. Findings are unchanged when compared to most recent study 10/17/2016. Impression: No DVT in the last 2 days. PROCEDURE INTERPRETED AT [facility] DEPARTMENT OF RADIOLOGY Final Report Signed by: Haresh Whipple M.D.
[2016-10-19] MEDS: ENOXAPARIN 30 MG/0.3 ML SYRINGE SUBCUT SCH (17:03)
== END 2016-10-19 18:45 | disposition home or self-care (01) | DRG 689 ==
LOC: EDBD → EDUNIT# → N.ED 13:44 → SUATTDRO 15:55 → N.EDINP 15:55 → N.5E 17:25
PROVIDERS: ADMIT Internal Medicine; ATTEND Internal Medicine

== ENCOUNTER 2017-08-19 14:56 | Observation (INO) ==
[2017-08-19] MEDS ORDERED: ONDANSETRON 4 MG/2 ML VIAL IV STA (15:49)
[2017-08-19] MEDS ORDERED: methylPREDNISolone SOD SUC 125 MG/2 ML VIAL IV STA (15:49)
[2017-08-19] MEDS ORDERED: cefTRIAXone 1,000 MG in SODIUM CHLORIDE 0.9% 100 ML IV STA (15:49)
[2017-08-19] MEDS ORDERED: FUROSEMIDE 100 MG/10 ML VIAL IV STA (15:49)
[2017-08-19] MEDS ORDERED: ALBUTEROL NEB SOLN 5 MG/ML 20 ML/BOTTLE RESP TX SCH (16:00)
[2017-08-19] MEDS ORDERED: cefTRIAXone 1,000 MG VIAL ONE (16:11)
[2017-08-19] MEDS ORDERED: FUROSEMIDE 100 MG/10 ML VIAL ONE (16:12)
[2017-08-19] MEDS ORDERED: ONDANSETRON 4 MG/2 ML VIAL ONE (16:12)
[2017-08-19] MEDS ORDERED: methylPREDNISolone SOD SUC 125 MG/2 ML VIAL ONE (16:12)
[2017-08-19 16:38] LABS: Basophils % 0.4 % (0.0-0.8); Eosinophils # 0.2 10*3/uL (0.0-0.87); Eosinophils % 3.1 % (0.00-10.9); Hematocrit 37.7 VOL% (35.7-47.0); Hemoglobin 12.3 GM/DL (12.0-16.0); Immature Granulocytes % 0.4 %; Immature Granulocytes Absolute 0.03 #; Lymphocytes # 1.3 10*3/uL (1.4-4.0); Lymphocytes % 17.3 % (21.3-54.2); Mean Corpuscular HGB Conc 32.6 GM/DL (32-36); Mean Corpuscular Hemoglobin 31 PG (27-34); Mean Corpuscular Volume 93.8 FL (87-102); Mean Platelet Volume 10.1 FL (9.6-12.0); Monocytes # 0.2 10*3/uL (0.11-0.8); Monocytes % 3.1 % (1.7-12.7); Neutrophils # 5.9 10*3/uL (1.4-7.4); Neutrophils % 75.7 % (38.7-73.9); Platelet Count 178 T/CUMM (130-400); Red Blood Count 4.02 MC/CUMM (3.8-5.5); Red Cell Distribution Width 14.4 % (9.3-17.3); White Blood Count 7.7 T/CUMM (4-12)
[2017-08-19 16:50] LABS: PT Patient Result 10.4 SECS
[2017-08-19 17:05] LABS: Albumin 2.7 G/DL (3.4-5.0); Bilirubin,Total 0.4 MG/DL (0.2-1.0); Osmolality,Calculated 284.4 MOS/KG (273-304); Potassium 3.4 MMOL/L (3.5-5.1); Total Protein 6.3 G/DL (6.4-8.3); Troponin I Only 0.038 NG/ML (0.00-0.045)
[2017-08-19] MEDS ORDERED: PROMETHAZINE 25 MG/1 ML VIAL IM PRN (18:52)
[2017-08-19] MEDS ORDERED: ACETAMINOPHEN 325 MG TABLET PO PRN (18:52)
[2017-08-19] MEDS ORDERED: GLUCAGON 1 MG VIAL IM PRN (20:42)
[2017-08-19] MEDS ORDERED: ALBUTEROL/IPRATROPIUM 3 ML NEB RESP TX PRN (20:42)
[2017-08-19] MEDS ORDERED: DEXTROSE 50% 25 GM/50 ML VIAL IV PRN (20:42)
[2017-08-19] MEDS: INSULIN LISPRO 100 UNIT/ML SUBCUT SCH (21:45)
[2017-08-19] MEDS: ENOXAPARIN 30 MG/0.3 ML SYRINGE SUBCUT SCH (21:45)
[2017-08-19] MEDS: GABAPENTIN 300 MG CAPSULE PO SCH (21:45)
[2017-08-19] MEDS: BENZONATATE 100 MG CAPSULE PO PRN (23:49)
[2017-08-20] MEDS: BENZONATATE 100 MG CAPSULE PO PRN (04:30)
[2017-08-20] MEDS ORDERED: cloNIDine 0.1 MG TABLET PO ONE (05:55)
[2017-08-20 08:24] LABS: Amorphous Crystals,Urine Occasional /HPF (Few); Apearance,Urine CLOUDY (Clear); Bacteria,Urine Many /HPF (Few); Bilirubin,Urine Negative (Negative); Blood, Urine Negative (Negative); Glucose,Urine (UA) Negative (Negative); Ketones,Urine Negative (Negative); Mucus,Urine Moderate /LPF (Occasional); Nitrite,Urine Negative (Negative); Protein,Urine >=500 MG/DL; Squamous Epithelial Cell,Urine Occasional /HPF (0-10); Urine Color Amber (Yellow); Urine Specific Gravity 1.043 (1.001-1.035); Urine Urobilinogen < 2.0 EU/DL (0.2-1.0); WBC,Urine 77 /HPF (0-6)
[2017-08-20] MEDS: amLODIPine 10 MG TABLET PO SCH (08:47)
[2017-08-20] MEDS: INSULIN LISPRO 100 UNIT/ML SUBCUT SCH ×4 (08:48→21:26)
[2017-08-20] MEDS: HYDROcodone/CHLORPHENIRAMINE ER 5 ML UDCUP PO PRN ×3 (08:53→21:21)
[2017-08-20] MEDS ORDERED: INSULIN GLARGINE 100 UNIT/ML SUBCUT SCH (21:00)
[2017-08-20] MEDS: GABAPENTIN 300 MG CAPSULE PO SCH (21:21)
[2017-08-20] MEDS: ENOXAPARIN 30 MG/0.3 ML SYRINGE SUBCUT SCH (21:25)
[2017-08-21] MEDS: HYDROcodone/CHLORPHENIRAMINE ER 5 ML UDCUP PO PRN ×2 (03:34→09:33)
[2017-08-21 08:18] VITALS: BP 160/86
[2017-08-21] MEDS ORDERED: LEVOFLOXACIN 500 MG TABLET PO ONE (09:00)
[2017-08-21] MEDS: INSULIN LISPRO 100 UNIT/ML SUBCUT SCH ×2 (09:01→14:18)
[2017-08-21] MEDS: amLODIPine 10 MG TABLET PO SCH (14:24)
== END 2017-08-21 15:42 | disposition home or self-care (01) ==
LOC: EDUNIT# → EDBD → N.EDINP 14:56 → N.ED 14:56 → N.2E 19:46
PROVIDERS: ADMIT Internal Medicine Geriatric Medicine; ATTEND Internal Medicine Geriatric Medicine

== ENCOUNTER 2017-12-16 19:02 | Inpatient (IN) ==
[2017-12-16] MEDS ORDERED: ACETAMINOPHEN 500 MG TABLET PO STA (20:42)
[2017-12-16] MEDS ORDERED: hydrALAZINE 20 MG/1 ML VIAL IV STA (20:43)
[2017-12-16] MEDS ORDERED: METOCLOPRAMIDE 10 MG/2 ML VIAL IV STA ×2 (20:44→23:08)
[2017-12-16] MEDS ORDERED: diphenhydrAMINE 50 MG/1 ML VIAL IV STA (20:44)
[2017-12-16 21:07] LABS: Basophils % 0.6 % (0.0-0.8); Eosinophils # 0.2 10*3/uL (0.0-0.87); Eosinophils % 3.8 % (0.00-10.9); Hematocrit 33.9 VOL% (35.7-47.0); Immature Granulocytes % 0.4 %; Immature Granulocytes Absolute 0.02 #; Lymphocytes # 0.9 10*3/uL (1.4-4.0); Lymphocytes % 18.4 % (21.3-54.2); Mean Corpuscular HGB Conc 32.4 GM/DL (32-36); Mean Corpuscular Hemoglobin 31 PG (27-34); Mean Corpuscular Volume 96.9 FL (87-102); Mean Platelet Volume 10.5 FL (9.6-12.0); Monocytes # 0.3 10*3/uL (0.11-0.8); Neutrophils # 3.6 10*3/uL (1.4-7.4); Neutrophils % 71.8 % (38.7-73.9); Platelet Count 149 T/CUMM (130-400); Red Cell Distribution Width 13.3 % (9.3-17.3)
[2017-12-16 21:30] LABS: Albumin 2.7 G/DL (3.4-5.0); Bilirubin,Total 0.5 MG/DL (0.2-1.0); Calcium 7.7 MG/DL (8.5-10.1); Osmolality,Calculated 302.1 MOS/KG (273-304); Potassium 3.6 MMOL/L (3.5-5.1); Total Protein 6.5 G/DL (6.4-8.3)
[2017-12-16] MEDS ORDERED: INSULIN REGULAR 100 UNIT/ML IV STA (21:35)
[2017-12-16] MEDS ORDERED: INSULIN REGULAR DRIP 100 ML IV PRN (21:43)
[2017-12-16] MEDS ORDERED: MORPHINE 4 MG/1 ML VIAL IV STA (23:08)
[2017-12-17] MEDS ORDERED: ONDANSETRON 4 MG/2 ML VIAL IV PRN (02:42)
[2017-12-17] MEDS ORDERED: DEXTROSE 50% 25 GM/50 ML VIAL IV PRN (02:42)
[2017-12-17] MEDS ORDERED: GLUCAGON 1 MG VIAL IM PRN (02:42)
[2017-12-17] MEDS ORDERED: cloNIDine 0.1 MG TABLET PO PRN (02:42)
[2017-12-17 02:58] LABS: Basophils % 0.4 % (0.0-0.8); Eosinophils # 0.2 10*3/uL (0.0-0.87); Eosinophils % 3.5 % (0.00-10.9); Hematocrit 29.8 VOL% (35.7-47.0); Hemoglobin 10.1 GM/DL (12.0-16.0); Immature Granulocytes % 0.4 %; Immature Granulocytes Absolute 0.02 #; Lymphocytes # 1.1 10*3/uL (1.4-4.0); Lymphocytes % 23.7 % (21.3-54.2); Mean Corpuscular HGB Conc 33.9 GM/DL (32-36); Mean Corpuscular Hemoglobin 32 PG (27-34); Mean Corpuscular Volume 93.1 FL (87-102); Mean Platelet Volume 9.9 FL (9.6-12.0); Monocytes # 0.3 10*3/uL (0.11-0.8); Monocytes % 5.8 % (1.7-12.7); Neutrophils % 66.2 % (38.7-73.9); Platelet Count 132 T/CUMM (130-400); Red Cell Distribution Width 13.2 % (9.3-17.3); White Blood Count 4.5 T/CUMM (4-12)
[2017-12-17 03:25] LABS: Calcium 7.5 MG/DL (8.5-10.1); Osmolality,Calculated 291.7 MOS/KG (273-304); Potassium 3.1 MMOL/L (3.5-5.1)
[2017-12-17] MEDS ORDERED: niCARdipine INJ 25 MG in SODIUM CHLORIDE 0.9% 240 ML IV PRN (04:08)
[2017-12-17] MEDS: INSULIN ASPART PROTAMINE/ASPART 70/30 100 UNIT/ML SUBCUT SCH ×2 (08:15→21:29)
[2017-12-17] MEDS: PANTOPRAZOLE 40 MG TABLET PO SCH (08:43)
[2017-12-17] MEDS: amLODIPine 10 MG TABLET PO SCH (08:43)
[2017-12-17] MEDS: GABAPENTIN 300 MG CAPSULE PO SCH ×2 (08:43→21:31)
[2017-12-17] MEDS ORDERED: INSULIN REGULAR 100 UNIT/ML SUBCUT SCH (10:00)
[2017-12-17] MEDS: INSULIN REGULAR 100 UNIT/ML SUBCUT SCH ×3 (12:26→21:29)
[2017-12-17] MEDS: IRBESARTAN 150 MG TABLET PO SCH (14:18)
[2017-12-17] MEDS: ACETAMINOPHEN 325 MG TABLET PO PRN ×2 (14:29→19:24)
[2017-12-18] MEDS: INSULIN REGULAR 100 UNIT/ML SUBCUT SCH ×6 (00:18→21:10)
[2017-12-18 06:17] LABS: Calcium 7.7 MG/DL (8.5-10.1); Osmolality,Calculated 280.1 MOS/KG (273-304); Potassium 3.6 MMOL/L (3.5-5.1)
[2017-12-18] MEDS: INSULIN ASPART PROTAMINE/ASPART 70/30 100 UNIT/ML SUBCUT SCH ×2 (08:11→21:10)
[2017-12-18] MEDS: IRBESARTAN 150 MG TABLET PO SCH (08:12)
[2017-12-18] MEDS: PANTOPRAZOLE 40 MG TABLET PO SCH (08:12)
[2017-12-18] MEDS: GABAPENTIN 300 MG CAPSULE PO SCH ×2 (08:13→21:09)
[2017-12-18] MEDS: amLODIPine 10 MG TABLET PO SCH (08:13)
[2017-12-18] MEDS ORDERED: cloNIDine 0.1 MG TABLET PO PRN (08:49)
[2017-12-18] MEDS ORDERED: diphenhydrAMINE CAP 50 MG CAPSULE PO ONE (12:07)
[2017-12-18] MEDS ORDERED: diphenhydrAMINE CAP 25 MG CAPSULE PO PRN (12:08)
[2017-12-18] MEDS: ACETAMINOPHEN 325 MG TABLET PO PRN (21:09)
[2017-12-19] MEDS ORDERED: DOCUSATE SODIUM 100 MG CAPSULE PO PRN (01:32)
[2017-12-19 05:17] LABS: Calcium 7.1 MG/DL (8.5-10.1); Potassium 4.1 MMOL/L (3.5-5.1)
[2017-12-19] MEDS: PANTOPRAZOLE 40 MG TABLET PO SCH (08:08)
[2017-12-19] MEDS: INSULIN REGULAR 100 UNIT/ML SUBCUT SCH ×4 (08:08→22:18)
[2017-12-19] MEDS: GABAPENTIN 300 MG CAPSULE PO SCH ×2 (08:09→22:08)
[2017-12-19] MEDS: amLODIPine 10 MG TABLET PO SCH (08:09)
[2017-12-19] MEDS ORDERED: ALUM/MAG/SIMETH/LIDO VISC 1:1 30 ML BOTTLE PO ONE (09:21)
[2017-12-19] MEDS: IRBESARTAN 150 MG TABLET PO SCH (09:43)
[2017-12-19] MEDS ORDERED: IRBESARTAN 150 MG TABLET PO ONE (10:55)
[2017-12-19] MEDS ORDERED: cloNIDine 0.1 MG TABLET PO PRN (12:41)
[2017-12-19] MEDS: INSULIN ASPART PROTAMINE/ASPART 70/30 100 UNIT/ML SUBCUT SCH ×2 (12:51→22:09)
[2017-12-20 06:24] LABS: Calcium 7.2 MG/DL (8.5-10.1)
[2017-12-20 06:25] LABS: Osmolality,Calculated 287.1 MOS/KG (273-304)
[2017-12-20 08:24] VITALS: BP 160/72
[2017-12-20] MEDS: PANTOPRAZOLE 40 MG TABLET PO SCH (08:41)
[2017-12-20] MEDS: amLODIPine 10 MG TABLET PO SCH (08:42)
[2017-12-20] MEDS: INSULIN ASPART PROTAMINE/ASPART 70/30 100 UNIT/ML SUBCUT SCH (08:42)
[2017-12-20] MEDS: GABAPENTIN 300 MG CAPSULE PO SCH (08:42)
[2017-12-20] MEDS: INSULIN REGULAR 100 UNIT/ML SUBCUT SCH ×2 (08:43→11:50)
[2017-12-20] MEDS ORDERED: IRBESARTAN 150 MG TABLET PO SCH (09:00)
== END 2017-12-20 16:00 | disposition home or self-care (01) | DRG 637 ==
LOC: N.EDINP 19:02 → N.ED 19:02 → SUATTDRO 12-17 01:53 → N.CC 12-17 02:34 → SUATTDRO 12-17 08:04 → N.2E 12-19 16:56
PROVIDERS: ADMIT Internal Medicine; ATTEND Hospitalist

== ENCOUNTER 2018-04-15 14:50 | Inpatient (IN) ==
[2018-04-15] MEDS ORDERED: DEXTROSE 50% 25 GM/50 ML SYRINGE IV ONE (14:52)
[2018-04-15] MEDS ORDERED: SODIUM BICARBONATE 50 MEQ/50 ML SYRINGE IV ONE ×2 (14:52→15:50)
[2018-04-15] MEDS ORDERED: INSULIN REGULAR 100 UNIT/ML IV STA (14:53)
[2018-04-15] MEDS ORDERED: DEXTROSE 50% 25 GM/50 ML VIAL IV STA (14:53)
[2018-04-15] MEDS ORDERED: INSULIN REGULAR 100 UNIT/ML ONE (14:53)
[2018-04-15] MEDS ORDERED: SODIUM BICARBONATE 50 MEQ/50 ML VIAL IV STA ×2 (14:54→15:44)
[2018-04-15] MEDS ORDERED: PROMETHAZINE 25 MG/1 ML VIAL IM PRN (15:31)
[2018-04-15] MEDS ORDERED: ONDANSETRON 4 MG/2 ML VIAL IV PRN (15:31)
[2018-04-15 15:39] LABS: ABG Base Excess -10.7 MMOL/L (-2.5-2.5); ABG Oxygen Saturation 97.8 % (95-100); ABG TCO2 20.8 MMOL/L (23-27); Allen Test Positive; Pt O2 Delivery Device Ventilator
[2018-04-15] MEDS ORDERED: DEXTROSE 50% 25 GM/50 ML VIAL IV PRN (15:42)
[2018-04-15] MEDS ORDERED: GLUCAGON 1 MG VIAL IM PRN (15:42)
[2018-04-15 15:43] LABS: ABG PCO2 78.2 MM HG (35-48)
[2018-04-15 15:49] LABS: Albumin 2.1 G/DL (3.4-5.0); Bilirubin,Total 1.3 MG/DL (0.2-1.0); Calcium 7.2 MG/DL (8.5-10.1); Osmolality,Calculated 300.1 MOS/KG (273-304); Potassium 4.5 MMOL/L (3.5-5.1); Total Protein 5.8 G/DL (6.4-8.3)
[2018-04-15 15:53] LABS: Basophils % 0.3 % (0.0-0.8); Eosinophils % 0.2 % (0.00-10.9); Hematocrit 35.8 VOL% (35.7-47.0); Hemoglobin 10.8 GM/DL (12.0-16.0); Immature Granulocytes % 5.5 %; Immature Granulocytes Absolute 0.33 #; Lymphocytes # 1.6 10*3/uL (1.4-4.0); Lymphocytes % 26.3 % (21.3-54.2); Mean Corpuscular HGB Conc 30.2 GM/DL (32-36); Mean Corpuscular Hemoglobin 31 PG (27-34); Mean Corpuscular Volume 103.2 FL (87-102); Mean Platelet Volume 11.5 FL (9.6-12.0); Monocytes # 0.1 10*3/uL (0.11-0.8); Monocytes % 1.8 % (1.7-12.7); NRBC # 0.03 10*3/uL; Neutrophils % 65.9 % (38.7-73.9); Red Blood Count 3.47 MC/CUMM (3.8-5.5)
[2018-04-15 15:54] LABS: Platelet Count 77 T/CUMM (130-400)
[2018-04-15] MEDS: CLINDAMYCIN INJ 600 MG in PREMIX 1 EACH IV SCH ×2 (16:05→21:01)
[2018-04-15 16:08] LABS: Lymphocytes 19 % (20-55); Macrocytosis 1+; Segmented Neutrophils 75 % (50-85); Total Cells Counted 100
[2018-04-15 16:09] LABS: Hypochromasia Slight; Platelet Estimate Decreased
[2018-04-15] MEDS ORDERED: INSULIN REGULAR 100 UNIT/ML SUBCUT SCH ×2 (16:30→18:00)
[2018-04-15] MEDS ORDERED: LORazepam 2 MG/1 ML VIAL ONE (16:52)
[2018-04-15] MEDS ORDERED: LORazepam 2 MG/1 ML VIAL IV STA (16:53)
[2018-04-15] MEDS ORDERED: levETIRAcetam 500 MG/5 ML VIAL IV ONE (17:05)
[2018-04-15 17:45] LABS: Lactic Acid 9.7 MMOL/L (0.4-2.0)
[2018-04-15] MEDS ORDERED: LORazepam 2 MG/1 ML VIAL IV PRN (17:46)
[2018-04-15] MEDS ORDERED: LORazepam 2 MG/1 ML VIAL IV ONE (17:46)
[2018-04-15] MEDS ORDERED: INSULIN REGULAR 100 UNIT/ML IV ONE (17:47)
[2018-04-15] MEDS ORDERED: INSULIN REGULAR 100 UNIT/ML SUBCUT ONE (17:47)
[2018-04-15] MEDS ORDERED: PROPOFOL 1,000 MG/100 ML BOTTLE IV ONE (17:48)
[2018-04-15 17:57] LABS: ABG Base Excess -1.4 MMOL/L (-2.5-2.5); ABG HCO3 23.3 MMOL/L (20-26); ABG Oxygen Saturation 99.6 % (95-100); ABG PCO2 50.8 MM HG (35-48); ABG PH 7.308 (7.35-7.45); ABG TCO2 23.2 MMOL/L (23-27); Allen Test Positive; Pt O2 Delivery Device Ventilator
[2018-04-15] MEDS ORDERED: POTASSIUM CHLORIDE RIDER 10 MEQ in PREMIX 1 EACH IV PRN (18:03)
[2018-04-15] MEDS ORDERED: MAGNESIUM SULF RIDER 2 GM in PREMIX 1 EACH IV PRN (18:04)
[2018-04-15] MEDS ORDERED: MAGNESIUM SULF RIDER 4 GM in PREMIX 1 EACH IV PRN (18:04)
[2018-04-15] MEDS: PROPOFOL 1,000 MG/100 ML BOTTLE IV SCH (18:34)
[2018-04-15] MEDS: cefTRIAXone 1,000 MG in SYRINGE 1 EACH IV SCH (18:46)
[2018-04-15] MEDS: CISATRACURIUM 200 MG in SODIUM CHLORIDE 0.9% 180 ML IV SCH (18:57)
[2018-04-15] MEDS: fentaNYL INJ 1,250 MCG in SODIUM CHLORIDE 0.9% 225 ML IV PRN (18:57)
[2018-04-15 19:19] LABS: Lactic Acid 4.8 MMOL/L (0.4-2.0)
[2018-04-15 19:52] LABS: INR 1.4; PT Patient Result 14.7 SECS; Partial Thromboplastin Time 30.5 SECS (0-40)
[2018-04-15 20:00] LABS: Amylase 148 U/L (25-115); Lipase < 50.0 U/L (73-393)
[2018-04-15] MEDS: ALBUTEROL/IPRATROPIUM 3 ML NEB RESP TX SCH (20:13)
[2018-04-15] MEDS: cloNIDine 0.1 MG TABLET PO SCH (20:38)
[2018-04-15] MEDS: INSULIN ASPART PROTAMINE/ASPART 70/30 100 UNIT/ML SUBCUT SCH (21:01)
[2018-04-15] MEDS: MINERAL OIL/PETROLATUM OPH OINT 3.5 GM TUBE BOTH EYES SCH (21:01)
[2018-04-15 22:16] LABS: Basophils % 0.2 % (0.0-0.8); Hematocrit 36.2 VOL% (35.7-47.0); Hemoglobin 11.5 GM/DL (12.0-16.0); Immature Granulocytes % 1.1 %; Immature Granulocytes Absolute 0.09 #; Lymphocytes # 0.6 10*3/uL (1.4-4.0); Lymphocytes % 6.9 % (21.3-54.2); Mean Corpuscular HGB Conc 31.8 GM/DL (32-36); Mean Corpuscular Hemoglobin 31 PG (27-34); Mean Platelet Volume 10.9 FL (9.6-12.0); Monocytes # 0.3 10*3/uL (0.11-0.8); Monocytes % 3.2 % (1.7-12.7); Neutrophils # 7.3 10*3/uL (1.4-7.4); Neutrophils % 88.6 % (38.7-73.9); Platelet Count 95 T/CUMM (130-400); Red Blood Count 3.77 MC/CUMM (3.8-5.5); Red Cell Distribution Width 13.7 % (9.3-17.3); White Blood Count 8.2 T/CUMM (4-12)
[2018-04-15 22:30] LABS: INR 1.4; Partial Thromboplastin Time 30.6 SECS (0-40)
[2018-04-15 22:35] LABS: CKMB % 2.5 %
[2018-04-15 22:36] LABS: Troponin I 0.593 NG/ML (0.00-0.045)
[2018-04-15 22:41] LABS: Giant Platelets Few; Macrocytosis 1+; Platelet Estimate Decreased
[2018-04-15 22:46] LABS: Calcium 8.1 MG/DL (8.5-10.1); Osmolality,Calculated 285.3 MOS/KG (273-304); Potassium 2.6 MMOL/L (3.5-5.1)
[2018-04-15] MEDS: hydrALAZINE 20 MG/1 ML VIAL IV PRN (23:10)
[2018-04-15] MEDS: INSULIN REGULAR 100 UNIT/ML IV SCH (23:40)
[2018-04-16] MEDS: ALBUTEROL/IPRATROPIUM 3 ML NEB RESP TX SCH ×4 (00:14→18:12)
[2018-04-16] MEDS: CLINDAMYCIN INJ 600 MG in PREMIX 1 EACH IV SCH ×4 (03:54→21:20)
[2018-04-16 04:53] LABS: ABG Base Excess 6.6 MMOL/L (-2.5-2.5); ABG HCO3 30.4 MMOL/L (20-26); ABG Oxygen Saturation 99.5 % (95-100); ABG PCO2 37.8 MM HG (35-48); ABG PH 7.507 (7.35-7.45); ABG TCO2 26.5 MMOL/L (23-27); Allen Test Positive; Pt O2 Delivery Device Ventilator
[2018-04-16 05:13] LABS: Basophils % 0.1 % (0.0-0.8); Hemoglobin 11.3 GM/DL (12.0-16.0); Immature Granulocytes % 0.9 %; Immature Granulocytes Absolute 0.07 #; Lymphocytes # 0.5 10*3/uL (1.4-4.0); Lymphocytes % 6.1 % (21.3-54.2); Mean Corpuscular HGB Conc 32.3 GM/DL (32-36); Mean Corpuscular Hemoglobin 30 PG (27-34); Mean Corpuscular Volume 93.8 FL (87-102); Monocytes # 0.2 10*3/uL (0.11-0.8); Neutrophils # 6.7 10*3/uL (1.4-7.4); Neutrophils % 89.9 % (38.7-73.9); Red Blood Count 3.73 MC/CUMM (3.8-5.5); Red Cell Distribution Width 13.3 % (9.3-17.3); White Blood Count 7.4 T/CUMM (4-12)
[2018-04-16 05:16] LABS: INR 1.4; PT Patient Result 15.2 SECS; Partial Thromboplastin Time 30.1 SECS (0-40)
[2018-04-16 05:19] LABS: Platelet Count 83 T/CUMM (130-400)
[2018-04-16 05:25] LABS: Albumin 2.5 G/DL (3.4-5.0); Bilirubin,Total 1.2 MG/DL (0.2-1.0); Calcium 7.8 MG/DL (8.5-10.1); Osmolality,Calculated 290.3 MOS/KG (273-304)
[2018-04-16 05:28] LABS: CKMB % 3.3 %; Troponin I 0.632 NG/ML (0.00-0.045)
[2018-04-16 05:30] LABS: Lactic Acid 2.3 MMOL/L (0.4-2.0)
[2018-04-16 05:40] LABS: Potassium 2.3 MMOL/L (3.5-5.1)
[2018-04-16] MEDS ORDERED: POTASSIUM CHLORIDE RIDER 20 MEQ in PREMIX 1 EACH IV ONE (05:43)
[2018-04-16] MEDS ORDERED: POTASSIUM CHLORIDE RIDER 100 ML IV ONE (05:48)
[2018-04-16 06:06] LABS: Hypochromasia 1+; Macrocytosis Slight; Ovalocytes Slight; Platelet Estimate Decreased
[2018-04-16] MEDS: PROPOFOL 1,000 MG/100 ML BOTTLE IV SCH ×2 (06:07→17:07)
[2018-04-16] MEDS: hydrALAZINE 20 MG/1 ML VIAL IV PRN (06:23)
[2018-04-16] MEDS: INSULIN REGULAR 100 UNIT/ML IV SCH ×5 (06:46→20:33)
[2018-04-16] MEDS: INSULIN ASPART PROTAMINE/ASPART 70/30 100 UNIT/ML SUBCUT SCH ×2 (08:06→20:33)
[2018-04-16] MEDS: PANTOPRAZOLE 40 MG VIAL IV SCH (08:07)
[2018-04-16] MEDS: MINERAL OIL/PETROLATUM OPH OINT 3.5 GM TUBE BOTH EYES SCH ×3 (09:11→21:20)
[2018-04-16] MEDS: cloNIDine 0.1 MG TABLET PO SCH ×2 (09:11→20:33)
[2018-04-16] MEDS: amLODIPine 10 MG TABLET PO SCH (09:11)
[2018-04-16 09:51] LABS: Basophils % 0.1 % (0.0-0.8); Hematocrit 35.5 VOL% (35.7-47.0); Hemoglobin 11.4 GM/DL (12.0-16.0); Immature Granulocytes % 0.7 %; Immature Granulocytes Absolute 0.06 #; Lymphocytes # 0.4 10*3/uL (1.4-4.0); Lymphocytes % 4.8 % (21.3-54.2); Mean Corpuscular HGB Conc 32.1 GM/DL (32-36); Mean Corpuscular Hemoglobin 30 PG (27-34); Mean Corpuscular Volume 94.7 FL (87-102); Mean Platelet Volume 11.5 FL (9.6-12.0); Monocytes # 0.2 10*3/uL (0.11-0.8); Neutrophils # 7.7 10*3/uL (1.4-7.4); Neutrophils % 92.4 % (38.7-73.9); Red Blood Count 3.75 MC/CUMM (3.8-5.5); Red Cell Distribution Width 13.6 % (9.3-17.3); White Blood Count 8.3 T/CUMM (4-12)
[2018-04-16 09:55] LABS: Platelet Count 81 T/CUMM (130-400)
[2018-04-16 10:09] LABS: INR 1.4; PT Patient Result 15.4 SECS; Partial Thromboplastin Time 30.5 SECS (0-40)
[2018-04-16 10:10] LABS: Band Neutrophils 7 % (0-10); Hypochromasia 1+; Lymphocytes 5 % (20-55); Metamyelocytes 2 %; Microcytosis 1+; Segmented Neutrophils 82 % (50-85); Total Cells Counted 100
[2018-04-16 10:11] LABS: Platelet Estimate Decreased
[2018-04-16 10:16] LABS: CKMB % 4.2 %
[2018-04-16 10:20] LABS: Calcium 7.6 MG/DL (8.5-10.1); Osmolality,Calculated 290.4 MOS/KG (273-304)
[2018-04-16 10:21] LABS: Troponin I 0.593 NG/ML (0.00-0.045)
[2018-04-16 10:26] LABS: Potassium 2.5 MMOL/L (3.5-5.1)
[2018-04-16] MEDS: POTASSIUM CHLORIDE RIDER 20 MEQ in PREMIX 1 EACH IV PRN ×4 (10:47→17:47)
[2018-04-16] MEDS: fentaNYL INJ 1,250 MCG in SODIUM CHLORIDE 0.9% 225 ML IV PRN (12:22)
[2018-04-16 15:44] LABS: Basophils % 0.3 % (0.0-0.8); Eosinophils % 0.1 % (0.00-10.9); Hematocrit 32.7 VOL% (35.7-47.0); Hemoglobin 10.6 GM/DL (12.0-16.0); Immature Granulocytes % 0.5 %; Immature Granulocytes Absolute 0.04 #; Lymphocytes # 0.6 10*3/uL (1.4-4.0); Lymphocytes % 7.8 % (21.3-54.2); Mean Corpuscular HGB Conc 32.4 GM/DL (32-36); Mean Corpuscular Hemoglobin 31 PG (27-34); Mean Corpuscular Volume 95.3 FL (87-102); Mean Platelet Volume 10.8 FL (9.6-12.0); Monocytes # 0.1 10*3/uL (0.11-0.8); Monocytes % 1.6 % (1.7-12.7); Neutrophils # 6.7 10*3/uL (1.4-7.4); Neutrophils % 89.7 % (38.7-73.9); Red Blood Count 3.43 MC/CUMM (3.8-5.5); Red Cell Distribution Width 13.8 % (9.3-17.3); White Blood Count 7.4 T/CUMM (4-12)
[2018-04-16 15:45] LABS: Platelet Count 79 T/CUMM (130-400)
[2018-04-16 15:53] LABS: INR 1.4; PT Patient Result 15.3 SECS; Partial Thromboplastin Time 31.9 SECS (0-40)
[2018-04-16 16:05] LABS: Anisocytosis 1+; Band Neutrophils 12 % (0-10); Eosinophils 1 % (0-10); Hypochromasia 1+; Lymphocytes 10 % (20-55); Metamyelocytes 2 %; Platelet Estimate Decreased; Segmented Neutrophils 72 % (50-85); Total Cells Counted 100
[2018-04-16 16:06] LABS: Calcium 7.5 MG/DL (8.5-10.1); Osmolality,Calculated 279.3 MOS/KG (273-304); Potassium 2.6 MMOL/L (3.5-5.1)
[2018-04-16] MEDS ORDERED: fentaNYL INJ 1,250 MCG in SODIUM CHLORIDE 0.9% 225 ML IV PRN (17:10)
[2018-04-16] MEDS: cefTRIAXone 1,000 MG in SYRINGE 1 EACH IV SCH (17:45)
[2018-04-16] MEDS ORDERED: NOREPINEPHRINE 8 MG in SODIUM CHLORIDE 0.9% 242 ML IV PRN (21:46)
[2018-04-16 22:14] LABS: Basophils % 0.4 % (0.0-0.8); Eosinophils # 0.1 10*3/uL (0.0-0.87); Eosinophils % 0.7 % (0.00-10.9); Hematocrit 30.6 VOL% (35.7-47.0); Hemoglobin 9.8 GM/DL (12.0-16.0); Immature Granulocytes Absolute 0.07 #; Lymphocytes # 0.8 10*3/uL (1.4-4.0); Lymphocytes % 10.8 % (21.3-54.2); Mean Corpuscular Hemoglobin 30 PG (27-34); Mean Platelet Volume 11.8 FL (9.6-12.0); Monocytes # 0.1 10*3/uL (0.11-0.8); Neutrophils % 85.1 % (38.7-73.9); Platelet Count 74 T/CUMM (130-400); Red Blood Count 3.22 MC/CUMM (3.8-5.5); Red Cell Distribution Width 13.8 % (9.3-17.3)
[2018-04-16 22:31] LABS: Calcium 7.1 MG/DL (8.5-10.1); INR 1.4; Osmolality,Calculated 275.4 MOS/KG (273-304); PT Patient Result 15.4 SECS; Partial Thromboplastin Time 34.4 SECS (0-40); Potassium 3.2 MMOL/L (3.5-5.1)
[2018-04-16] MEDS ORDERED: NOREPINEPHRINE 4 MG/4 ML VIAL IV ONE (22:32)
[2018-04-16 22:33] LABS: Band Neutrophils 13 % (0-10); Hypochromasia 1+; Lymphocytes 10 % (20-55); Segmented Neutrophils 75 % (50-85); Total Cells Counted 100
[2018-04-16 22:34] LABS: Platelet Estimate Decreased; Polychromasia Few
[2018-04-16] MEDS: DEXTROSE 50% 25 GM/50 ML SYRINGE IV PRN (22:48)
[2018-04-17] MEDS: INSULIN REGULAR 100 UNIT/ML IV SCH ×10 (00:18→21:33)
[2018-04-17] MEDS: ALBUTEROL/IPRATROPIUM 3 ML NEB RESP TX SCH ×4 (00:45→19:16)
[2018-04-17] MEDS: DEXTROSE 50% 25 GM/50 ML SYRINGE IV PRN ×2 (04:00→08:21)
[2018-04-17 04:19] LABS: ABG Base Excess 5.4 MMOL/L (-2.5-2.5); ABG HCO3 31.4 MMOL/L (20-26); ABG Oxygen Saturation 97.8 % (95-100); ABG PCO2 53.1 MM HG (35-48); ABG PO2 114.7 MM HG (80-95); ABG TCO2 33.1 MMOL/L (23-27); Allen Test Positive; Pt O2 Delivery Device Ventilator
[2018-04-17] MEDS: CLINDAMYCIN INJ 600 MG in PREMIX 1 EACH IV SCH ×4 (04:41→22:09)
[2018-04-17] MEDS: CISATRACURIUM 200 MG in SODIUM CHLORIDE 0.9% 180 ML IV SCH (04:50)
[2018-04-17 05:19] LABS: Basophils % 0.3 % (0.0-0.8); Eosinophils # 0.2 10*3/uL (0.0-0.87); Eosinophils % 1.5 % (0.00-10.9); Hematocrit 32.7 VOL% (35.7-47.0); Hemoglobin 10.4 GM/DL (12.0-16.0); Lymphocytes # 0.8 10*3/uL (1.4-4.0); Mean Corpuscular HGB Conc 31.8 GM/DL (32-36); Mean Corpuscular Hemoglobin 30 PG (27-34); Mean Corpuscular Volume 95.6 FL (87-102); Mean Platelet Volume 12.1 FL (9.6-12.0); Monocytes # 0.2 10*3/uL (0.11-0.8); Monocytes % 1.8 % (1.7-12.7); NRBC # 0.02 10*3/uL; Neutrophils # 8.9 10*3/uL (1.4-7.4); Neutrophils % 87.4 % (38.7-73.9); Red Blood Count 3.42 MC/CUMM (3.8-5.5); Red Cell Distribution Width 14.1 % (9.3-17.3); White Blood Count 10.2 T/CUMM (4-12)
[2018-04-17 05:22] LABS: Platelet Count 91 T/CUMM (130-400)
[2018-04-17 05:35] LABS: INR 1.3; Partial Thromboplastin Time 33.6 SECS (0-40)
[2018-04-17 05:45] LABS: Albumin 1.7 G/DL (3.4-5.0); Bilirubin,Total 0.7 MG/DL (0.2-1.0); Calcium 7.1 MG/DL (8.5-10.1); Osmolality,Calculated 279.7 MOS/KG (273-304); Potassium 3.3 MMOL/L (3.5-5.1); Total Protein 4.8 G/DL (6.4-8.3)
[2018-04-17] MEDS ORDERED: ACETAMINOPHEN 325 MG/10.15 ML UDCUP PO PRN (05:55)
[2018-04-17 06:22] LABS: ABG Base Excess 4.2 MMOL/L (-2.5-2.5); ABG HCO3 28.2 MMOL/L (20-26); ABG Oxygen Saturation 97.8 % (95-100); ABG PCO2 52.2 MM HG (35-48); ABG PH 7.375 (7.35-7.45); ABG TCO2 27.4 MMOL/L (23-27); Allen Test Positive; Pt O2 Delivery Device Ventilator
[2018-04-17 06:30] LABS: Band Neutrophils 1 % (0-10); Hypochromasia 1+; Lymphocytes 11 % (20-55); Myelocytes 1 %; Platelet Estimate Decreased; Polychromasia Few; Segmented Neutrophils 86 % (50-85); Total Cells Counted 100
[2018-04-17 06:40] LABS: Basophils % 0.4 % (0.0-0.8); Eosinophils # 0.2 10*3/uL (0.0-0.87); Eosinophils % 1.8 % (0.00-10.9); Hematocrit 33.8 VOL% (35.7-47.0); Hemoglobin 10.6 GM/DL (12.0-16.0); Immature Granulocytes % 1.3 %; Immature Granulocytes Absolute 0.14 #; Lymphocytes % 8.7 % (21.3-54.2); Mean Corpuscular HGB Conc 31.4 GM/DL (32-36); Mean Corpuscular Hemoglobin 30 PG (27-34); Mean Corpuscular Volume 95.5 FL (87-102); Mean Platelet Volume 11.8 FL (9.6-12.0); Monocytes # 0.2 10*3/uL (0.11-0.8); Monocytes % 1.7 % (1.7-12.7); NRBC # 0.02 10*3/uL; Neutrophils # 9.4 10*3/uL (1.4-7.4); Neutrophils % 86.1 % (38.7-73.9); Red Blood Count 3.54 MC/CUMM (3.8-5.5); Red Cell Distribution Width 14.1 % (9.3-17.3); White Blood Count 10.9 T/CUMM (4-12)
[2018-04-17 06:53] LABS: Platelet Count 92 T/CUMM (130-400)
[2018-04-17 06:57] LABS: INR 1.3; PT Patient Result 13.8 SECS; Partial Thromboplastin Time 33.1 SECS (0-40)
[2018-04-17 07:04] LABS: Albumin 1.7 G/DL (3.4-5.0); Bilirubin,Total 0.7 MG/DL (0.2-1.0); CKMB % 5.3 %; Calcium 6.9 MG/DL (8.5-10.1); Osmolality,Calculated 276.4 MOS/KG (273-304); Potassium 3.4 MMOL/L (3.5-5.1); Total Protein 4.8 G/DL (6.4-8.3)
[2018-04-17 07:06] LABS: Troponin I 0.306 NG/ML (0.00-0.045)
[2018-04-17 07:32] LABS: Band Neutrophils 4 % (0-10); Eosinophils 1 % (0-10); Hypochromasia 1+; Lymphocytes 7 % (20-55); Metamyelocytes 1 %; Microcytosis 1+; Platelet Estimate Decreased; Polychromasia Few; Segmented Neutrophils 87 % (50-85); Total Cells Counted 100
[2018-04-17] MEDS: INSULIN ASPART PROTAMINE/ASPART 70/30 100 UNIT/ML SUBCUT SCH (08:19)
[2018-04-17] MEDS: MINERAL OIL/PETROLATUM OPH OINT 3.5 GM TUBE BOTH EYES SCH ×3 (08:52→20:30)
[2018-04-17] MEDS: PANTOPRAZOLE 40 MG VIAL IV SCH (08:59)
[2018-04-17] MEDS: POTASSIUM CHLORIDE RIDER 20 MEQ in PREMIX 1 EACH IV SCH ×2 (09:17→11:18)
[2018-04-17] MEDS: amLODIPine 10 MG TABLET PO SCH (09:27)
[2018-04-17] MEDS: cloNIDine 0.1 MG TABLET PO SCH ×2 (09:27→20:37)
[2018-04-17 10:27] LABS: Basophils # 0.1 10*3/uL (0.0-0.2); Basophils % 0.4 % (0.0-0.8); Eosinophils # 0.2 10*3/uL (0.0-0.87); Hematocrit 34.8 VOL% (35.7-47.0); Hemoglobin 10.9 GM/DL (12.0-16.0); Immature Granulocytes % 1.5 %; Immature Granulocytes Absolute 0.18 #; Lymphocytes # 1.1 10*3/uL (1.4-4.0); Lymphocytes % 9.4 % (21.3-54.2); Mean Corpuscular HGB Conc 31.3 GM/DL (32-36); Mean Corpuscular Hemoglobin 30 PG (27-34); Mean Corpuscular Volume 95.6 FL (87-102); Monocytes # 0.2 10*3/uL (0.11-0.8); Monocytes % 1.7 % (1.7-12.7); NRBC # 0.04 10*3/uL; Neutrophils # 10.3 10*3/uL (1.4-7.4); Platelet Count 100 T/CUMM (130-400); Red Blood Count 3.64 MC/CUMM (3.8-5.5); Red Cell Distribution Width 14.1 % (9.3-17.3); White Blood Count 12.1 T/CUMM (4-12)
[2018-04-17] MEDS: PROPOFOL 1,000 MG/100 ML BOTTLE IV SCH ×2 (10:30→18:50)
[2018-04-17 10:37] LABS: INR 1.2; PT Patient Result 13.4 SECS; Partial Thromboplastin Time 31.6 SECS (0-40)
[2018-04-17 10:49] LABS: Calcium 7.1 MG/DL (8.5-10.1); Osmolality,Calculated 277.5 MOS/KG (273-304); Potassium 3.9 MMOL/L (3.5-5.1)
[2018-04-17 11:08] LABS: Band Neutrophils 9 % (0-10); Eosinophils 2 % (0-10); Lymphocytes 12 % (20-55); Metamyelocytes 1 %; Microcytosis 1+; Segmented Neutrophils 74 % (50-85); Tear Drop Cells Slight; Total Cells Counted 100
[2018-04-17 11:09] LABS: Platelet Estimate Decreased
[2018-04-17 11:13] LABS: Hypochromasia 1+; Ovalocytes Slight
[2018-04-17] MEDS: cefTRIAXone 1,000 MG in SYRINGE 1 EACH IV SCH (17:14)
[2018-04-18] MEDS: ALBUTEROL/IPRATROPIUM 3 ML NEB RESP TX SCH ×3 (00:45→14:47)
[2018-04-18] MEDS: INSULIN REGULAR 100 UNIT/ML SUBCUT SCH ×6 (01:49→17:05)
[2018-04-18 03:13] LABS: ABG Base Excess -0.5 MMOL/L (-2.5-2.5); ABG Oxygen Saturation 98.8 % (95-100); ABG PCO2 50.3 MM HG (35-48); ABG PH 7.324 (7.35-7.45); ABG TCO2 23.8 MMOL/L (23-27); Allen Test Positive; Pt O2 Delivery Device Ventilator
[2018-04-18 04:35] LABS: Basophils % 0.3 % (0.0-0.8); Eosinophils # 0.1 10*3/uL (0.0-0.87); Eosinophils % 0.6 % (0.00-10.9); Hematocrit 32.4 VOL% (35.7-47.0); Immature Granulocytes % 1.2 %; Immature Granulocytes Absolute 0.12 #; Lymphocytes # 1.2 10*3/uL (1.4-4.0); Lymphocytes % 11.9 % (21.3-54.2); Mean Corpuscular HGB Conc 30.9 GM/DL (32-36); Mean Corpuscular Hemoglobin 30 PG (27-34); Mean Corpuscular Volume 97.3 FL (87-102); Mean Platelet Volume 12.1 FL (9.6-12.0); Monocytes # 0.3 10*3/uL (0.11-0.8); Monocytes % 2.8 % (1.7-12.7); NRBC # 0.02 10*3/uL; Neutrophils % 83.2 % (38.7-73.9); Red Blood Count 3.33 MC/CUMM (3.8-5.5); Red Cell Distribution Width 14.5 % (9.3-17.3); White Blood Count 9.7 T/CUMM (4-12)
[2018-04-18] MEDS: CLINDAMYCIN INJ 600 MG in PREMIX 1 EACH IV SCH ×3 (04:36→16:35)
[2018-04-18 04:37] LABS: Platelet Count 95 T/CUMM (130-400)
[2018-04-18 04:42] LABS: INR 1.1
[2018-04-18 04:48] LABS: Partial Thromboplastin Time 40.9 SECS (0-40)
[2018-04-18 04:59] LABS: Calcium 6.7 MG/DL (8.5-10.1); Osmolality,Calculated 284.1 MOS/KG (273-304); Potassium 5.9 MMOL/L (3.5-5.1); Prealbumin 11.1 MG/DL (20-40)
[2018-04-18 05:08] LABS: Band Neutrophils 2 % (0-10); Eosinophils 1 % (0-10); Hypochromasia 1+; Lymphocytes 12 % (20-55); Ovalocytes Slight; Platelet Estimate Decreased; Segmented Neutrophils 80 % (50-85); Total Cells Counted 100
[2018-04-18 05:09] LABS: Microcytosis 1+
[2018-04-18] MEDS: cloNIDine 0.1 MG TABLET PO SCH (09:46)
[2018-04-18] MEDS: amLODIPine 10 MG TABLET PO SCH (09:47)
[2018-04-18] MEDS: MINERAL OIL/PETROLATUM OPH OINT 3.5 GM TUBE BOTH EYES SCH ×2 (10:09→16:35)
[2018-04-18] MEDS: PANTOPRAZOLE 40 MG VIAL IV SCH (10:09)
[2018-04-18] MEDS ORDERED: HEPARIN 5,000 UNIT/1 ML VIAL SUBCUT SCH (11:00)
[2018-04-18 14:15] VITALS: BP 122/62
[2018-04-18 15:12] LABS: Albumin 1.6 G/DL (3.4-5.0); Bilirubin,Direct 0.62 MG/DL (0.0-0.20); Bilirubin,Indirect 0.4 MG/DL (0.0-1.0); Total Protein 4.9 G/DL (6.4-8.3)
[2018-04-18] MEDS ORDERED: HEPARIN/NACL 0.9% 2 UNITS/ML 500 ML IV ONE (18:15)
[2018-04-18 19:00] LABS: ABG Base Excess 5.9 MMOL/L (-2.5-2.5); ABG Oxygen Saturation 97.2 % (95-100); ABG PCO2 41.4 MM HG (35-48); ABG PH 7.478 (7.35-7.45); ABG PO2 96.2 MM HG (80-95); ABG TCO2 31.3 MMOL/L (23-27)
== END 2018-04-18 13:50 | disposition expired | DRG 208 ==
LOC: N.ED 14:50 → N.EDINP 15:31 → N.ICU 17:27
PROVIDERS: ADMIT Family Medicine; ATTEND Family Medicine

== ENCOUNTER → 2018-04-18 13:50 | Inpatient (IN) ==
[~2018-04-18 13:50] MED LIST changes: -LIDOCAINE 2% 5 ML VIAL ONE; -PROPOFOL 200 MG/20 ML VIAL IV ONE; +cefTRIAXone 1,000 MG in SYRINGE 1 EACH IV SCH
[2018-04-18 19:27] LABS: ABG Base Excess 5.9 MMOL/L (-2.5-2.5); ABG PCO2 41.4 MM HG (35-48); ABG PH 7.478 (7.35-7.45); ABG PO2 96.2 MM HG (80-95); ABG TCO2 31.3 MMOL/L (23-27)
[2018-04-18 19:28] LABS: ABG Oxygen Saturation 97.2 % (95-100)
[2018-04-18 19:36] LABS: ABG Base Excess 3.7 MMOL/L (-2.5-2.5); ABG HCO3 32.3 MMOL/L (20-26); ABG Oxygen Saturation 98.6 % (95-100); ABG PH 7.256 (7.35-7.45); ABG PO2 180.3 MM HG (80-95); ABG TCO2 34.6 MMOL/L (23-27); Glucose Heart Surgery 213 MG/DL (74-106); Hemoglobin Heart Surgery 9.9 G/DL (12.0-16.0); Potassium Heart/CVR 4.3 MMOL/L (3.5-5.1)
[2018-04-18 19:38] LABS: ABG PCO2 74.3 MM HG (35-48)
[2018-04-18 20:22] LABS: INR 1.1; PT Patient Result 11.6 SECS; Partial Thromboplastin Time 32.6 SECS (0-40)
[2018-04-18 20:30] LABS: Albumin 1.5 G/DL (3.4-5.0); Bilirubin,Direct 0.59 MG/DL (0.0-0.20); Bilirubin,Total 0.8 MG/DL (0.2-1.0); Calcium 7.1 MG/DL (8.5-10.1); Osmolality,Calculated 284.7 MOS/KG (273-304); Potassium 4.5 MMOL/L (3.5-5.1); Total Protein 4.9 G/DL (6.4-8.3)
[2018-04-18 21:47] LABS: Basophils % 0.2 % (0.0-0.8); Eosinophils # 0.1 10*3/uL (0.0-0.87); Eosinophils % 1.5 % (0.00-10.9); Hematocrit 27.2 VOL% (35.7-47.0); Hemoglobin 8.5 GM/DL (12.0-16.0); Immature Granulocytes % 1.2 %; Immature Granulocytes Absolute 0.08 #; Lymphocytes % 14.9 % (21.3-54.2); Mean Corpuscular HGB Conc 31.3 GM/DL (32-36); Mean Corpuscular Hemoglobin 30 PG (27-34); Mean Corpuscular Volume 96.8 FL (87-102); Mean Platelet Volume 11.9 FL (9.6-12.0); Monocytes # 0.2 10*3/uL (0.11-0.8); Monocytes % 3.5 % (1.7-12.7); NRBC # 0.02 10*3/uL; Neutrophils # 5.2 10*3/uL (1.4-7.4); Neutrophils % 78.7 % (38.7-73.9); Platelet Count 80 T/CUMM (130-400); Red Blood Count 2.81 MC/CUMM (3.8-5.5); Red Cell Distribution Width 14.6 % (9.3-17.3); White Blood Count 6.6 T/CUMM (4-12)
== END | disposition expired | DRG 93 ==
LOC: N.ICU 13:50
PROVIDERS: ADMIT Family Medicine; ATTEND Family Medicine